=== PATIENT | male | born 1945 | race Caucasian/White ===

== ENCOUNTER 2017-03-10 15:41 | Inpatient (IN) | payer MEDICARE, BC ==
[~2017-03-10] VITALS: Ht 177.8 cm; Wt 75.5 kg
[2017-03-10] VITALS (8 sets, daily range): BP systolic 103–127; BP diastolic 60–74; PULSE 62–76; RESP 17–20; TEMP 96.6–97.4; O2SAT 95–100
[~2017-03-10 15:41] MED LIST: ZOCO40TA PO
--- NOTE | 2017-03-10 16:28 | RADRPT ---
EXAM DATE/TIME: 03/10/2017 16:17 [facility] COMPARISON: No previous studies available for comparison. INDICATIONS : Syncopal episode. MEDICAL HISTORY : None. SURGICAL HISTORY : Appendectomy. ENCOUNTER: Initial ACUITY: 1 day PAIN SCORE: 0/10 LOCATION: Bilateral chest FINDINGS: The lungs are hypoaerated but otherwise clear without evidence of acute air space disease or signific ant congestion. Large calcified nodes are identified in the left side of the mediastinum and left hilum. Heart is mildly enlarged. CONCLUSION: No evidence of acute cardio pulmonary process. Calcified mediastinal and left hilar lymph nodes. Mild cardiomegaly. Mushtaq Millan MD on March 10, 2017 at 16:24 Board Certified Radiologist. This report was verified electronically.
[2017-03-10 16:46] LABS: AUTOMATED NEUTROPHIL # 4.3 TH/MM3 (1.8-7.7); BASOPHIL % 0.7 % (0.0-2.0); EOSINOPHIL # 0.1 TH/MM3 (0-0.4); EOSINOPHIL % 1.1 % (0.0-4.0); HEMATOCRIT 34.3 % (39.0-51.0); HEMO FLAGS DIFF FINAL; LYMPH % 19.7 % (9.0-44.0); LYMPHOCYTE # 1.2 TH/MM3 (1.0-4.8); MEAN CELL VOLUME 94.9 FL (80.0-100.0); MEAN CORPUSCULAR HEMOGLOBIN 30.9 PG (27.0-34.0); MEAN CORPUSCULAR HGB CONC 32.5 % (32.0-36.0); MONO % 6.2 % (0.0-8.0); NEUT % 72.3 % (16.0-70.0); PLATELET COUNT 306 TH/MM3 (150-450); RED BLOOD COUNT 3.62 MIL/MM3 (4.50-5.90); RED CELL DISTRIBUTION WIDTH 13.5 % (11.6-17.2)
--- NOTE | 2017-03-10 16:48 | RADRPT ---
EXAM DATE/TIME: 03/10/2017 16:35 [facility] COMPARISON: No previous studies available for comparison. INDICATIONS : Evaluate for altered mental states. RADIATION DOSE: 56.35 CTDIvol (mGy) MEDICAL HISTORY : Cardiovascular disease. Hypercholesterolemia. SURGICAL HISTORY : None. ENCOUNTER: Initial ACUITY: 1 day PAIN SCALE: 3/10 LOCATION: Bilateral cranial TECHNIQUE: Multiple contiguous axial images were obtained of the head. Using automated exposure control and adj ustment of the mA and/or kV according to patient size, radiation dose was kept as low as reasonably a chievable to obtain optimal diagnostic quality images. FINDINGS: CEREBRUM: Moderate diffuse cerebral atrophy. The ventricles are normal for degree of atrophy. No evidence of m idline shift, mass lesion, hemorrhage or acute infarction. No extra-axial fluid collections are seen . POSTERIOR FOSSA: The cerebellum and brainstem are intact. The 4th ventricle is midline. The cerebellopontine angle i s unremarkable. EXTRACRANIAL: The visualized portion of the orbits is intact. SKULL: The calvaria is intact. No evidence of skull fracture. CONCLUSION: 1. Senescent changes. 2. No acute intracranial abnormality. Chay Tobias MD on March 10, 2017 at 16:43 Board Certified Radiologist. This report was verified electronically.
[2017-03-10 17:07] LABS: APTT (PATIENT) 20.7 SEC (24.3-30.1); INTERNATIONAL NORMALIZED RATIO 0.9 RATIO; PROTHROMBIN TIME - PATIENT 10.2 SEC (9.8-11.6)
[2017-03-10 17:26] LABS: ALKALINE PHOSPHATASE 63 U/L (45-117); ALT (GPT) 26 U/L (12-78); CREATINE KINASE 128 U/L (39-308); TOTAL BILIRUBIN ADULT 0.9 MG/DL (0.2-1.0)
[2017-03-10 17:35] LABS: ANION GAP 9 MEQ/L (5-15); AST (GOT) 31 U/L (15-37); BICARBONATE 25.9 MEQ/L (21.0-32.0); BLOOD UREA NITROGEN 25 MG/DL (7-18); CHLORIDE 106 MEQ/L (98-107); GLOMERULAR FILTRATION RATE 62 ML/MIN (>89); MAGNESIUM 2.2 MG/DL (1.5-2.5); SODIUM (NA) 141 MEQ/L (136-145)
[2017-03-10 17:38] LABS: CKMB 1.3 NG/ML (0.5-3.6)
--- NOTE | 2017-03-10 18:02 | PD ---
HPI Chief Complaint: Syncope/Near-Syncope Time Seen by Provider: 17:53 Travel History International Travel<30 days: No Contact w/Intl Traveler<30days: No Traveled to known affect area: No History of Present Illness HPI 71 yo male here for evaluation of syncope. Came by ambulance for evaluation of this. Patient had a syncopal episode with a restaurant. Apparently per bystanders and ambulance report patient complained that he was feeling dizzy when he stood up and he sat down again and she started to pass out. Patient threw up once. Patient had another episode well the ambulance was present. Patient has limited history secondary to dementia. Initially most of the history was obtained from ambulance as well as nurse report and some from the patient. At the time of my evaluation patient only complained of some lightheadedness. Daughter came later who is the power of disability attorney for the patient and tells us that patient has a complicated history. Apparently about a week ago patient had a significant GI bleed that resolved on its own but still present. Patient was admitted to a different hospital for this. Patient also has a history of severe coronary artery disease with stents placed as well as an abnormal aorta and a brain aneurysm complicating his medical care. Per daughter apparently patient had a stent that was hard to place and at this time they think the patient might need to go to bypass if he continues to have cardiac issues. Patient's employee relations representative is Dr. Dennis. Patient denies any chest pain. No other symptoms. PFSH Past Medical History Hx Anticoagulant Therapy: Yes (XARELTO) Cancer: No Cardiovascular Problems: Yes (SENT X1 ) Diabetes: No Endocrine: No Genitourinary: No Hepatitis: No Hiatal Hernia: No Immune Disorder: No Medical other: Yes (high cholesterol) Musculoskeletal: No Neurologic: No Psychiatric: No Reproductive: No Respiratory: No Thyroid Disease: No Past Surgical History Abdominal Surgery: Yes (appendectomy) Appendectomy: Yes Cardiac Surgery: No Ear Surgery: No Endocrine Surgery: No Eye Surgery: No Genitourinary Surgery: No Gynecologic Surgery: No Oral Surgery: No Thoracic Surgery: No Other Surgery: Yes Social History Alcohol Use: Yes (OCC) Tobacco Use: No Substance Use: No Allergies-Medications (Allergen,Severity, Reaction): Coded Allergies: No Known Allergies (Unverified , 03/10/17) Reported Meds & Prescriptions Reported Meds & Active Scripts Active Review of Systems Except as stated in HPI: all other systems reviewed are Neg Physical Exam Narrative GENERAL: SKIN: Warm and dry. HEAD: Atraumatic. Normocephalic. EYES: Pupils equal and round 4 mm reactive to light and accommodation. No scleral icterus. No injection or drainage. ENT: No nasal bleeding or discharge. Mucous membranes pink and moist. Tongue is midline. No uvula deviation. NECK: Trachea midline. No JVD. CARDIOVASCULAR: Regular rate and rhythm. No murmurs, S3, S4. RESPIRATORY: No accessory muscle use. Clear to auscultation. Breath sounds equal bilaterally. GASTROINTESTINAL: Abdomen soft, non-tender, nondistended. Hepatic and splenic margins not palpable. Rectal exam done and show no bertrand blood but Hemoccult was found to be positive. Done with male nurse present. MUSCULOSKELETAL: Extremities without clubbing, cyanosis, or edema. No obvious deformities. Full range of motion of the upper and lower extremities bilaterally. 2+ pulses bilaterally. NEUROLOGICAL: Awake and alert. No obvious cranial nerve deficits. Motor grossly within normal limits. Five out of 5 muscle strength in the arms and legs. Normal speech. PSYCHIATRIC: Appropriate mood and affect; insight and judgment normal. Data Data Last Documented VS Vital Signs Date Time Temp Pulse Resp B/P Pulse Ox O2 Delivery O2 Flow Rate FiO2 03/10/17 16:13 98 Room Air 03/10/17 15:53 97.4 65 17 107/64 Orders Electrocardiogram (03/10/17 16:05) Complete Blood Count With Diff (03/10/17 16:05) Comprehensive Metabolic Panel (03/10/17 16:05) Ckmb (Isoenzyme) Profile (03/10/17 16:05) Troponin I (03/10/17 16:05) Prothrombin Time / Inr (Pt) (03/10/17 16:05) Act Partial Throm Time (Ptt) (03/10/17 16:05) Urinalysis - C+S If Indicated (03/10/17 16:05) Magnesium (Mg) (03/10/17 16:05) Thyroid Stimulating Hormone (03/10/17 16:05) Chest, Single Ap (03/10/17 16:05) Ct Brain W/O Iv Contrast(Rout) (03/10/17 16:05) Iv Access Insert/Monitor (03/10/17 16:05) Ecg Monitoring (03/10/17 16:05) Oximetry (03/10/17 16:05) Orthostatic Vital Signs (03/10/17 16:05) Drug Screen, Random Urine (03/10/17 16:05) Alcohol (Ethanol) (03/10/17 16:05) CKMB (03/10/17 16:15) CKMB% (03/10/17 16:15) Labs Laboratory Tests Test 03/10/17 16:15 White Blood Count 6.0 TH/MM3 Red Blood Count 3.62 MIL/MM3 Hemoglobin 11.2 GM/DL Hematocrit 34.3 % Mean Corpuscular Volume 94.9 FL Mean Corpuscular Hemoglobin 30.9 PG Mean Corpuscular Hemoglobin 32.5 % Concent Red Cell Distribution Width 13.5 % Platelet Count 306 TH/MM3 Mean Platelet Volume 8.5 FL Neutrophils (%) (Auto) 72.3 % Lymphocytes (%) (Auto) 19.7 % Monocytes (%) (Auto) 6.2 % Eosinophils (%) (Auto) 1.1 % Basophils (%) (Auto) 0.7 % Neutrophils # (Auto) 4.3 TH/MM3 Lymphocytes # (Auto) 1.2 TH/MM3 Monocytes # (Auto) 0.4 TH/MM3 Eosinophils # (Auto) 0.1 TH/MM3 Basophils # (Auto) 0.0 TH/MM3 CBC Comment DIFF FINAL Differential Comment Prothrombin Time 10.2 SEC Prothromb Time International 0.9 RATIO Ratio Activated Partial 20.7 SEC Thromboplast Time Sodium Level 141 MEQ/L Potassium Level 4.0 MEQ/L Chloride Level 106 MEQ/L Carbon Dioxide Level 25.9 MEQ/L Anion Gap 9 MEQ/L Blood Urea Nitrogen 25 MG/DL Creatinine 1.16 MG/DL Estimat Glomerular Filtration 62 ML/MIN Rate Random Glucose 85 MG/DL Calcium Level 8.9 MG/DL Magnesium Level 2.2 MG/DL Total Bilirubin 0.9 MG/DL Aspartate Amino Transf 31 U/L (AST/SGOT) Alanine Aminotransferase 26 U/L (ALT/SGPT) Alkaline Phosphatase 63 U/L Total Creatine Kinase 128 U/L Creatine Kinase MB 1.3 NG/ML Troponin I 0.08 NG/ML Total Protein 6.6 GM/DL Albumin 3.6 GM/DL Thyroid Stimulating Hormone 11.300 uIU/ML 3rd Gen Ethyl Alcohol Level LESS THAN 3 MG/DL MDM Medical Decision Making Medical Screen Exam Complete: Yes Emergency Medical Condition: Yes Medical Record Reviewed: Yes Interpretation(s) CBC & BMP Diagram 03/10/17 16:15 LFTS WNL Troponin of 0.08 CKMB WNL EKG shows sinus rhythm with no sign of acute ischemia or arrhythmia read by me and attending. Last Impressions Head CT 03/10/17 1605 Signed Impressions: Service Date/Time: Friday, March 10, 2017 16:35 - CONCLUSION: 1. Senescent changes. 2. No acute intracranial abnormality. Chay Tobias MD Chest X-Ray 03/10/17 1605 Signed Impressions: Service Date/Time: Friday, March 10, 2017 16:17 - CONCLUSION: No evidence of acute cardio pulmonary process. Calcified mediastinal and left hilar lymph nodes. Mild cardiomegaly. Mushtaq Millan MD Differential Diagnosis Syncope versus chest pain versus ACS versus electrolyte abnormality versus tach hypotension versus GI bleed versus shock versus CVA Narrative Course 71-year-old male that presents to the ED for evaluation of syncope. Patient was properly examined and was found to have signs and symptoms consistent with syncope. Unclear etiology. History initially was limited but after family came over were able to get a better picture of the patient. Unfortunately he does have a complicated history. Hemoccult was done by me and was positive. Patient has no complaints but per daughter patient when he had the heart issue he did not complain of any chest pain and he still had positive troponins. I got called by Dr. Dennis who wanted to be made aware of the patient as is his patient and will like to be consulted on the patient during admission. Case was discussed with Dr. Renée SONG who agrees to admission for the patient for syncope, GI bleed and elevated troponin. He was made aware of Dr. Dennis wanting to be consulted as well as of all findings. My attending Dr. Martinez and myself went to the room and evaluated the patient and spoke with the family about admission and findings and they agree with plan. Procedures EKG Prior to Arrival: Yes HemaPrompt Point of Care Internal Pos. & Neg. Controls: Passed Fecal Specimen Occult Blood: Positive Diagnosis Primary Impression: Syncope Qualified Code: R55 - Syncope, unspecified syncope type Additional Impressions: Elevated troponin GI bleed Qualified Code: K92.2 - Gastrointestinal hemorrhage, unspecified gastrointestinal hemorrhage type Admitting Information Admitting Physician Requests: Admit Rahul Gillespie Mar 10, 2017 18:02
[2017-03-10] MEDS ORDERED: MEMA21CA PO (18:57)
[2017-03-10] MEDS ORDERED: LIPI80TA PO (18:57)
[2017-03-10] MEDS ORDERED: OMEP10CA PO (18:57)
[2017-03-10] MEDS ORDERED: LEVO75TA3 PO (18:57)
[2017-03-10 18:59] LABS: BLOOD, URINE NEG (NEG); GLUCOSE,URINE NEG (NEG); KETONE, URINE NEG (NEG); MUCUS URINE FEW /lpf (OCC); NITRITE,URINE NEG (NEG); PH, URINE 5.5 (5.0-8.5); URINE COLOR YELLOW (YELLW/STRAW)
[2017-03-10 19:02] LABS: COMMENT (UR) CULT NOT INDICATED; CULTURE IF INDICATED CULT NOT INDICATED
[2017-03-10 19:08] LABS: AMPHETAMINE, URINE NEG (NEG); BARBITURATES, URINE NEG (NEG); COCAINE, URINE NEG (NEG)
[2017-03-10] MEDS ORDERED: SODIUM CHLORIDE 0.9% FLUSH 10 ML FLUSH IV FLUSH PRN (20:45)
[2017-03-10] MEDS ORDERED: NALOXONE HCL 0.4 MG/ML AMP IV PRN (20:45)
[2017-03-10] MEDS: PANTOPRAZOLE SODIUM 40 MG VIAL IV PUSH SCH (21:35)
[2017-03-10] MEDS: SODIUM CHLORIDE 0.9% FLUSH 10 ML FLUSH IV FLUSH SCH (21:36)
[2017-03-10 23:55] LABS: HEMATOCRIT 33.2 % (39.0-51.0); REVIEW FLAG FINAL
--- NOTE | 2017-03-10 23:57 | HHI.HP ---
HPI Service [facility] Primary Care Physician Stephen Ricks, DO Admission Diagnosis acute syncope, positive troponin, GI bleed Diagnoses: (1) Syncope (2) Elevated troponin Chief Complaint: "I felt funny and passed out" Travel History International Travel<30 Days: No Contact w/Intl Traveler <30 Da: No Traveled to Known Affected Are: No History of Present Illness Written by Bella Allen, acting as scribe for Dr. Espinal on 03/10/17 at 23:57. The patient states that he was having lunch and sat down to eat. He then felt "really funny" with dizziness and inability to focus with some mild confusion and passed out. He turned toward his side on a picnic table and fell on the ground - denies hitting head. He denies any associated blurred vision, tinnitus , cp, sob, or unilateral weakness. He has never had any similar episodes before. Denies prior history of palpitations. Denies recent diarrhea, hematuria. Reports blood in stool a couple of weeks ago - no cp, sob, fever, or cough - was supposed to follow up with jig and fixture repairer as an outpatient and hasn't yet. Takes baby aspirin and Xarelto. Has had normal colonoscopy in the past Denies diabetes, hypertension, , CHF, liver/kidney problems, DVT, PE, CVA, seizures, or cancer Review of Systems Except as stated in HPI: all other systems reviewed are Neg Past Family Social History Past Medical History CAD with stent placement Hyperlipidemia Hypothyroidism . Past Surgical History Cardiac catheterization with stent placement Appendectomy Reported Medications Reported Meds & Active Scripts Active Reported Lipitor (Atorvastatin Calcium) 80 Mg Tab 80 Mg PO HS Namenda Xr (Memantine) 21 Mg Caper 21 Mg PO DAILY Levothyroxine (Levothyroxine Sodium) 75 Mcg Tab 75 Mcg PO DAILY Omeprazole 10 Mg Cap 0 PO DAILY Allergies: Coded Allergies: No Known Allergies (Unverified , 03/10/17) Active Ordered Medications Current Medications Sodium Chloride (NS Flush) 2 ml UNSCH PRN IV FLUSH FLUSH AFTER USING IV ACCESS ; Start 03/10/17 at 20:45 Sodium Chloride (NS Flush) 2 ml BID IV FLUSH Last administered on 03/10/17 21: 36; Start 03/10/17 at 21:00 Naloxone HCl (Narcan Inj) 0.4 mg UNSCH PRN IV SEE LABEL COMMENTS; Start at 20:45 Pantoprazole Sodium (Protonix Inj) 40 mg Q12HR IV PUSH Last administered on 21:35; Start 03/10/17 at 21:00 . Family History Denies any major medical history amongst his 7 siblings . Social History Tobacco - never Alcohol - occasional social beer Illicit drugs - never Physical Exam Vital Signs Vital Signs Date Time Temp Pulse Resp B/P Pulse Ox O2 Delivery O2 Flow Rate FiO2 03/10/17 23:10 96.6 76 20 127/60 98 03/10/17 21:40 67 03/10/17 21:25 96.9 68 20 120/74 100 03/10/17 21:00 74 18 106/72 97 Room Air 03/10/17 20:15 62 18 103/67 97 Room Air 03/10/17 18:57 76 18 104/64 95 Room Air 03/10/17 16:13 98 Room Air 03/10/17 15:53 97.4 65 17 107/64 97 Physical Exam GENERAL: This is a pleasant, well-nourished, well-developed older male patient, in no apparent distress. SKIN: No rashes, ecchymoses or lesions. Cool and dry. HEAD: Atraumatic. Normocephalic. EYES: No scleral icterus. No injection or drainage. ENT: Nose without bleeding, purulent drainage. NECK: Trachea midline. No JVD or lymphadenopathy. CARDIOVASCULAR: Regular rate and rhythm without murmurs, gallops, or rubs. RESPIRATORY: Clear to auscultation. Breath sounds equal bilaterally. No wheezes , rales, or rhonchi. GASTROINTESTINAL: Abdomen soft, non-tender, nondistended. No guarding. MUSCULOSKELETAL: Extremities without clubbing, cyanosis, or edema. No calf tenderness. NEUROLOGICAL: Awake and alert; mild short-term memory impairment. Motor and sensory grossly within normal limits. Normal speech. . Laboratory Laboratory Tests Test 03/10/17 03/10/17 03/10/17 16:15 18:35 23:30 White Blood Count 6.0 Red Blood Count 3.62 Hemoglobin 11.2 10.9 Hematocrit 34.3 33.2 Mean Corpuscular Volume 94.9 Mean Corpuscular Hemoglobin 30.9 Mean Corpuscular Hemoglobin 32.5 Concent Red Cell Distribution Width 13.5 Platelet Count 306 Mean Platelet Volume 8.5 Neutrophils (%) (Auto) 72.3 Lymphocytes (%) (Auto) 19.7 Monocytes (%) (Auto) 6.2 Eosinophils (%) (Auto) 1.1 Basophils (%) (Auto) 0.7 Neutrophils # (Auto) 4.3 Lymphocytes # (Auto) 1.2 Monocytes # (Auto) 0.4 Eosinophils # (Auto) 0.1 Basophils # (Auto) 0.0 CBC Comment DIFF FINAL Differential Comment Prothrombin Time 10.2 Prothromb Time International 0.9 Ratio Activated Partial 20.7 Thromboplast Time Sodium Level 141 Potassium Level 4.0 Chloride Level 106 Carbon Dioxide Level 25.9 Anion Gap 9 Blood Urea Nitrogen 25 Creatinine 1.16 Estimat Glomerular Filtration 62 Rate Random Glucose 85 Calcium Level 8.9 Magnesium Level 2.2 Total Bilirubin 0.9 Aspartate Amino Transf 31 (AST/SGOT) Alanine Aminotransferase 26 (ALT/SGPT) Alkaline Phosphatase 63 Total Creatine Kinase 128 Creatine Kinase MB 1.3 Troponin I 0.08 Total Protein 6.6 Albumin 3.6 Thyroid Stimulating Hormone 11.300 3rd Gen Ethyl Alcohol Level LESS THAN 3 Urine Color YELLOW Urine Turbidity CLEAR Urine pH 5.5 Urine Specific [place] 1.024 Urine Protein TRACE Urine Glucose (UA) NEG Urine Ketones NEG Urine Occult Blood NEG Urine Nitrite NEG Urine Bilirubin NEG Urine Urobilinogen 2.0 Urine Leukocyte Esterase NEG Urine RBC 1 Urine WBC 1 Urine Amorphous Sediment RARE Urine Mucus FEW Microscopic Urinalysis Comment CULT NOT INDICATED Urine Opiates Screen NEG Urine Barbiturates Screen NEG Urine Amphetamines Screen NEG Urine Benzodiazepines Screen NEG Urine Cocaine Screen NEG Urine Cannabinoids Screen NEG Result Diagram: 03/10/17 2330 03/10/17 1615 Imaging Last Impressions Head CT 03/10/17 1605 Signed Impressions: Service Date/Time: Friday, March 10, 2017 16:35 - CONCLUSION: 1. Senescent changes. 2. No acute intracranial abnormality. Chay Tobias MD Chest X-Ray 03/10/17 1605 Signed Impressions: Service Date/Time: Friday, March 10, 2017 16:17 - CONCLUSION: No evidence of acute cardio pulmonary process. Calcified mediastinal and left hilar lymph nodes. Mild cardiomegaly. Mushtaq Millan MD . Assessment and Plan Problem List: (1) Syncope ICD Code: R55 Status: Acute (2) Elevated troponin ICD Code: R74.8 Status: Acute Assessment and Plan Syncope - ACS vs GI bleed - patient of Dr. Dennis's - Consult cardiology - Dr. Dennis's assistance is appreciated - check serial H&H - Monitor VS q4h - Continuous cardiac telemetry to monitor for arrhythmia. Elevated troponin I - initial troponin I 0.08 - monitor trends in serial EKGs and cardiac enzymes - will do lovenox therapeutic dose if enzymes continue to trend up Questionable hx of GI bleed a few weeks ago - Protonix 40 mg IV q12h - Consult gastroenterology - patient trying to remember which GI group he was referred to - reports has had prior colonoscopies that were normal - watch for bleeding closely DVT prophylaxis- SCD vs lovenox GI prophylaxis on protonix This note was transcribed by shineibdamien [Bella Allen]. I, Dr. Kary Espinal personally performed the history, physical exam, and medical decision making; and confirmed the accuracy of the information in the transcribed note. Authenticated by Dr. Kary Espinal on 03/10/17 at 23:57. Discussed Condition With ER physician and patient Problem Qualifiers (1) Syncope: Qualified Code: R55 - Syncope, unspecified syncope type Bella Allen Mar 10, 2017 23:57 Kary Espinal MD Mar 11, 2017 01:50 Qualified Code: R55 - Syncope, unspecified syncope type (2) GI bleed: Qualified Code: K92.2 - Gastrointestinal hemorrhage, unspecified gastrointestinal hemorrhage type Bella Allen Mar 10, 2017 23:57 Kary Espinal MD Mar 11, 2017 01:50
[2017-03-11] VITALS (12 sets, daily range): BP systolic 101–129; BP diastolic 65–85; PULSE 56–73; RESP 18–21; TEMP 97.3–99.1; O2SAT 96–100
[2017-03-11] MEDS ORDERED: ENOXAPARIN SODIUM 80 MG/0.8 ML SYRINGE SQ SCH (02:00)
--- NOTE | 2017-03-11 07:18 | EKG ---
Date Performed: 03/10/2017 Time Performed: 15:47:02 PTAGE: 71 years EKG: Sinus rhythm WITH MARKED SINUS ARRHYTHMIA POSSIBLE ANTERIOR MYOCARDIAL INFARCTION BORDERLINE ECG INTERPRETATION B ASED ON A DEFAULT AGE OF 40 YEARS COMPARED TO PRIOR ELECTROCARDIOGRAM, Inferior infarct pattern is no longer present. PREVIOUS TRACING : 03/29/2015 16.26 DOCTOR: Sudheer Aparicio Interpretating Date/Time 03/11/2017 07:17:12
--- NOTE | 2017-03-11 07:55 | EKG ---
Date Performed: 03/11/2017 Time Performed: 04:15:08 PTAGE: 71 years EKG: BASELINE ARTIFACT PRESENT. Sinus rhythm WITH OCCASIONAL SUPRAVENTRICULAR PREMATURE COMPLEXES BORDERLINE ECG Premature atrial contractions ar e now present. PREVIOUS TRACING : 03/10/2017 23.05 DOCTOR: Sudheer Aparicio Interpretating Date/Time 03/11/2017 07:53:39
--- NOTE | 2017-03-11 07:59 | EKG ---
Date Performed: 03/10/2017 Time Performed: 23:05:52 PTAGE: 71 years EKG: BASELINE ARTIFACT PRESENT. Sinus rhythm INFERIOR MYOCARDIAL INFARCTION ABNORMAL ECG COMPARED TO PRIOR ELECTROCARDIOGRAM, inferior infarct p attern is present. PREVIOUS TRACING : 03/10/2017 15.47 DOCTOR: Sudheer Aparicio Interpretating Date/Time 03/11/2017 07:58:39
[2017-03-11 08:55] LABS: BASOPHIL % 0.4 % (0.0-2.0); EOSINOPHIL # 0.1 TH/MM3 (0-0.4); EOSINOPHIL % 1.2 % (0.0-4.0); HEMATOCRIT 31.9 % (39.0-51.0); HEMO FLAGS DIFF FINAL; LYMPH % 16.9 % (9.0-44.0); LYMPHOCYTE # 1.1 TH/MM3 (1.0-4.8); MEAN CELL VOLUME 94.2 FL (80.0-100.0); MEAN CORPUSCULAR HEMOGLOBIN 31.1 PG (27.0-34.0); MONO % 7.2 % (0.0-8.0); NEUT % 74.3 % (16.0-70.0); PLATELET COUNT 277 TH/MM3 (150-450); RED BLOOD COUNT 3.39 MIL/MM3 (4.50-5.90); RED CELL DISTRIBUTION WIDTH 13.5 % (11.6-17.2); WHITE BLOOD COUNT 6.8 TH/MM3 (4.0-11.0)
[2017-03-11 09:28] LABS: BICARBONATE 24.2 MEQ/L (21.0-32.0); POTASSIUM 3.7 MEQ/L (3.5-5.1)
[2017-03-11] MEDS: PANTOPRAZOLE SODIUM 40 MG VIAL IV PUSH SCH ×2 (10:17→21:36)
[2017-03-11] MEDS: SODIUM CHLORIDE 0.9% FLUSH 10 ML FLUSH IV FLUSH SCH ×2 (10:18→21:36)
--- NOTE | 2017-03-11 10:47 | HHI.PR ---
Subjective Remarks Follow-up for syncope and elevated troponin Patient denies any chest pain, palpitation, short spring, lightheadedness dizziness. She stated that he feels well today. Patient anxious to go home. He stated that time that he an episode of syncope he felt "weird." Where he couldn't move. He denies any focal neurological deficit or visual changes. He does stated that he felt dizziness and passed out. At the moment patient is back to his baseline. Dealt with patient's nurse and stated that troponins and elevated. Told patient 's nurse Jeannine to contact Dr. Dennis. Dr. Dennis automotive sales executive is aware that troponins are elevated. Objective Vitals Vital Signs Date Time Temp Pulse Resp B/P Pulse Ox O2 Delivery O2 Flow Rate FiO2 03/11/17 08:00 97.3 61 20 117/65 99 03/11/17 03:40 97.7 61 20 101/66 96 03/10/17 23:10 96.6 76 20 127/60 98 03/10/17 21:40 67 03/10/17 21:25 96.9 68 20 120/74 100 03/10/17 21:00 74 18 106/72 97 Room Air 03/10/17 20:15 62 18 103/67 97 Room Air 03/10/17 18:57 76 18 104/64 95 Room Air 03/10/17 16:13 98 Room Air 03/10/17 15:53 97.4 65 17 107/64 97 Result Diagram: 03/11/17 0810 03/11/17 0810 Objective Remarks GENERAL: in NAD SKIN: Warm and dry. HEAD: Normocephalic. EYES: No scleral icterus. No injection or drainage. NECK: Supple, trachea midline. No JVD or lymphadenopathy. CARDIOVASCULAR: Regular rate and rhythm without murmurs, gallops, or rubs. RESPIRATORY: Breath sounds equal bilaterally. No accessory muscle use. GASTROINTESTINAL: Abdomen soft, non-tender, nondistended. MUSCULOSKELETAL: No cyanosis, or edema. BACK: Nontender without obvious deformity. No CVA tenderness. NEURO: AAO X 3. CN 2-12 intact. Motor and sensation grossly intact. Medications and IVs Current Medications Sodium Chloride (NS Flush) 2 ml UNSCH PRN IV FLUSH FLUSH AFTER USING IV ACCESS ; Start 03/10/17 at 20:45 Sodium Chloride (NS Flush) 2 ml BID IV FLUSH Last administered on 03/11/17t 10: 18; Start 03/10/17 at 21:00 Naloxone HCl (Narcan Inj) 0.4 mg UNSCH PRN IV SEE LABEL COMMENTS; Start at 20:45 Pantoprazole Sodium (Protonix Inj) 40 mg Q12HR IV PUSH Last administered on 10:17; Start 03/10/17 at 21:00 Enoxaparin Sodium (Lovenox Inj) 70 mg Q12H SQ ; Start 03/11/17 at 02:00 A/P Problem List: (1) Syncope ICD Code: R55 Status: Acute (2) Elevated troponin ICD Code: R74.8 Status: Acute Assessment and Plan Syncope -Troponins are elevated. May be secondary to ACS but patient is asymptomatic. -Her automotive sales executive consulted. Dr. Dennis is aware of elevated troponins. - Patient is on Lovenox. We'll add aspirin and metoprolol. Nitroglycerin or morphine when necessary for chest pain. -Continue with cardiac telemetry. elevated troponin. - Most likely secondary to NSTEMI. -See treatment as above. Questionable hx of GI bleed a few weeks ago - No signs of GI bleed. Hemoglobin has been stable. 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 This can be follow-up as outpatient. DVT prophylaxis- SCD Discharge Planning Troponins continues to be elevated concerning for ACS. Pediatric Lpn consulted. Pending recommendations. Problem Qualifiers (1) Syncope: Qualified Code: R55 - Syncope, unspecified syncope type Trang Casanova MD Mar 11, 2017 10:47
[2017-03-11] MEDS ORDERED: PILL SPLITTER OTHER PRN (11:00)
[2017-03-11] MEDS: METOPROLOL TARTRATE 25 MG TAB PO SCH ×2 (12:17→21:37)
[2017-03-11] MEDS: ASPIRIN EC 81 MG TABEC PO SCH (12:17)
[2017-03-11] MEDS ORDERED: IOHEXOL 350 MG/ML 100 ML BTL (for Cath Lab) OTHER ONE (13:25)
--- NOTE | 2017-03-11 13:31 | MB ---
cc: BRENTON RICK M.D. DATE OF CONSULTATION: 03/11/2017 HISTORY OF PRESENT ILLNESS Julio is a very pleasant 71-year-old gentleman with a history of coronary disease. He had complex intervention in the proximal LAD in November involving jailing of a diagonal vessel, also had a very posteriorly rotated left main and it was difficult to cannulate the left main with the guide catheter. Nevertheless, he underwent this successfully. His chest pain was completely resolved. He is also on dual-antiplatelet therapy and Xarelto due to simultaneous atrial fibrillation and coronary disease status post PCI. About a week and a half ago the patient developed a GI bleed that was not hemodynamically significant or required blood transfusion; however, he was discontinued on his anticoagulation and dual-antiplatelet therapy. Plan was for him to follow-up with Dr. Snider for further evaluation and management from a GI standpoint as soon as possible; however, the patient as of the time of his admission history had not seen Dr. Snider. Yesterday the patient was having lunch with a friend, developed nausea and then had a syncopal event. Initial EKG showed some ST elevation in lead I and aVL but did not appear to be consistent with injury and morphology. Subsequent EKG showed complete resolution of this change. The patient is completely asymptomatic now. Denies chest pain, fever, chills, cough, GI or bleeding, PND, orthopnea, syncope or dizziness at this time. His troponins did elevate, however. PAST MEDICAL HISTORY 1. Per history of present illness. 2. Hyperlipidemia. 3. Appendectomy. SOCIAL HISTORY Drinks alcohol occasionally. ALLERGIES None. MEDICATIONS 1. Aspirin 81 mg a day. 2. Metoprolol 12.5 q.12h. 3. Lovenox 70 subcu q.12h. 4. Pantoprazole 40 IV q.12h. PHYSICAL EXAMINATION VITAL SIGNS: Blood pressure 127/76, pulse 61, temperature 98.2, respiratory rate 21. GENERAL: He is alert and oriented x3, in no acute distress. NECK: Supple. No JVD. No bruit. CARDIOVASCULAR: S1, S2. No murmurs or gallops. LUNGS: Clear to auscultation bilaterally. ABDOMEN: Soft, nontender, nondistended, with positive bowel sounds. EXTREMITIES: No lower extremity edema. LABORATORY White count 6.0, hemoglobin 11.2 yesterday, currently 10.5. Hematocrit 34.3 down to 31.9 today. Platelet count initially 306, now 277. Sodium 141, potassium 4.1, chloride 106, bicarb 25.9, BUN 25, creatinine 1.16. LFTs normal. Initial troponin 0.08, 0.32, 1.60. CK negative x3. TSH 11.300. INR is 0.9. Toxicology negative. IMAGING Head CT conclusion "senescent" changes, no acute intracranial abnormality. Chest x-ray with mild cardiomegaly. EKG EKG initially at 1605 on 03/10/2017: Normal sinus rhythm at 68 beats per minute. There may be 0.[address]-segment elevation in lead I and aVL, does not appear to be consistent with injury. There is asymmetric T-wave inversion in lead III and aVF, otherwise nonspecific ST-T wave changes, poor R-wave progression, intraventricular conduction delay. EKG done at 2215 on 03/10/2017: Normal sinus rhythm at 73 beats per minute, nonspecific ST-T wave changes. The third EKG has normal sinus rhythm, nonspecific ST-T wave changes. DIAGNOSIS 1. Non-ST elevation myocardial infarction. 2. Syncope. 3. Recent GI bleed. 4. Paroxysmal atrial fibrillation. 5. Abnormal EKG. DISCUSSION At this point in time it is indeterminate whether his troponin elevation is secondary to a possible hypotensive episode associated with the syncope and/or primary obstructive etiology leading to the syncope. Certainly the patient is high risk for an ischemic etiology given his recently placed stent which was a complicated procedure due to inability to cannulate the left main due to a very posteriorly rotated left main ostium and also a bifurcation lesion. The patient has also been off dual-antiplatelet therapy and anticoagulation due to recent GI bleeding. Therefore, I do think left heart catheterization is medically necessary. Further recommendations pending the details of his coronary anatomy. The patient does have baseline dementia and his daughter, Chery Blake, is his surrogate decision-maker and I discussed the possibility of repeat intervention versus considering bypass surgery should the patient have another complex lesion, particularly involving the LAD. Ms. Blake has indicated that she would prefer consideration for CABG at that point in time if that is the case. Otherwise agree with aspirin and Lovenox. Will also restart the patient's Lipitor at 80 mg h.s. MD BONNIE Todd/MOLLY /1:01 PM /1:17 PM
[2017-03-11] MEDS ORDERED: HEPARIN-NS/PF INJ 500 ML ONE (14:04)
[2017-03-11] MEDS ORDERED: HEPARIN SODIUM - IV 10,000 UNITS/10 ML VIAL ONE (14:47)
[2017-03-11] MEDS ORDERED: ADENOSINE STRESS TEST INJ 90 MG/30 ML VIAL ONE (14:51)
[2017-03-11] MEDS ORDERED: MISC INFORMATION XX ONE (15:30)
[2017-03-11] MEDS ORDERED: SODIUM CHLORIDE 0.9% FLUSH 10 ML FLUSH IV FLUSH PRN (15:30)
--- NOTE | 2017-03-11 15:41 | CATHPROC ---
[facility] HIS Report Study Information Study Number Admission Scheduled Start Study Start [id number] Mar 10 2017 6:20PM 03/11/2017 Mar 11 2017 1:56PM [address] Service Cardiac Catheterization Admit Source Facility Department Emergency department [facility] - [facility] Physician and Clinical Staff Initial Nader Dyer Verification Engineer Gloria Duffy,BSRN Verification Engineer Umu Blanton,RN Recorder Dixie Garza,PIERCING ARTIST TECH2 Scrub Kian Duffy,RT(R) TECH2 Procedures Performed Procedure Location (Site) Vessel Name Coronary Angiograms LCA Left Coronary Coronary Angiograms RCA Right Coronary LV Gram-hand inj. LV LV Ventricle Wire insertion Fem Art (right) Femoral Art Equipment Time Hooker Up Description Size Mfg Part Number Used/Scraped CATHETER, FR5 SWAN MOSES 14:15 UMANZOR BLANTON FR 5 [id number] *[id number] Used MONITOR TRANSDUCER, TRUWAVE [id number] 14:15 UMANZOR BLANTON * Used W/STOCKCOCK *[id number] WIRE, GUIDE AMPLATZ STIFF [id number] 15:01 COOK/PACER 3MMJ Used 180CM *[id number] 538-446 *[id number] [id number] *[id number] 538-420 *[id number] 670-010-00 *[id number] 538-424 *1829871 538-421 *[id number] 670-058-00 *[id number] 670-064-00 *[id number] 14:15 MEDLINE IND[employer] PACK, CCL CUSTOM * Used *[id number] 14:15 [employer] PACER PEN, SKIN DUAL W/ RULER * Used *[id number] 14:52 Protecode MEDICAL SHEATH, FR6.5 PRELUDE 11CM FR 6.5 038ACT Used *[id number] 14:15 Protecode MEDICAL WIRE, 3MMJ .035 180CM 180CM Used *[id number] 14:15 NAMIC MANIFOLD, 4 PORT * Used *[id number] 14:15 NYCOMED OMNIPAQUE, 350 MG, 150ML 150ML [id number] Used [id number] 14:15 JOHNSON MEDICAL BLANKET,WARM AIR CCL * Used *[id number] 14:15 TERUMO MEDICAL SHEATH, FR4 TERUMO (10CM) FR 4 [id number] Used 14:29 TERUMO MEDICAL SHEATH, FR6 TERUMO (10CM) FR 6 [id number] Used 14:52 VOLCANO PRIME WIRE, VERRATA 185CM 185CM 85880 *[id number] Used Equipment Model, Serial, Lot Number and Expiration Data Description Model Number Serial Number Lot Number Expiration Date PRIME WIRE, VERRATA 185CM [id number] 01-26-2020 WIRE, GUIDE AMPLATZ STIFF [id number] 08-09-2021 180CM History: Allergies Allergy Reaction NKDA History: Risk Factors Family History of Hypertension Dyslipidemia Previous OH Previous Heart Failure Premature CAD No Yes No Yes No Prior Valve Prior PCI Prior CABG Surgery No Yes No Cerebrovascular Peripheral Artery Chronic Lung On Dialysis Diabetes Disease Disease Disease No No No No No History: Symptoms/Diagnosis Selection Items Syncope History: CV Disease Selection Items Known CAD OH History: Stress Tests Stress or Imaging Studies Performed No History: Arrhythmias Selection Items Atrial fibrillation History: Other Current Smoker No Labs Hgb (g/dl) Hct (%) WBC (l/cumm) Platelets (thousands) 12.00-18.00 37.00-55.00 4.80-10.80 140.00-450.00 10.5 31.9 6.8 277 Glucose (mg/dl) BUN (mg/dl) Creatinine (mg/dl) BUN:Creatinine (1:x) 60.00-110.00 8.00-20.00 0.10-9.00 10.00-20.00 84 27 0.8 33.8 Na (meq/l) K (meq/l) 138.00-146.00 3.80-5.10 141 3.7 INR (PTT:PT) 0.50-2.00 0.9 Troponin I (ng/ml) CPK (u/l) CPK-MB (ng/ML) 0.40-2.30 37.00-289.00 0.00-7.00 1.6 128 1.3 Medication Medication Total Dose (Bolus/Oral) Medication Total Dosage/Unit 1% XYLOCAINE 20 mL HEPARIN 5200 units Medications (Bolus/Oral) Medication Time Given Dosage/Unit Administered By Reason 1% XYLOCAINE 03/11/2017 2:25:26 PM 20 mL Nader Dennis 20 mL 1% XYLOCAINE given in lab by Nader Dennis in Right Groin via Subcutaneous. HEPARIN 03/11/2017 2:51:53 PM 5200 units Gloria Duffy 5200 units HEPARIN given in lab by Gloria Duffy BSRN in Left Antecubital via Peripheral IV. Orde red by Nader Dennis. Medication (Drip) Medication Time Given Dosage/Unit Concentration/Unit Diluent (ml) Solution IV Bolus 03/11/2017 2:36:16 PM 250 mL (Bolus) 500 NaCl .9 250 mL (Bolus) IV Bolus given in lab by Gloria Duffy BSRN in Left Antecubital via Peripheral IV. Using NaCl .9. Ordered by Nader Dennis. IV Solutions 03/11/2017 1:58:02 PM 0 mL (IV) 500 NaCl .9 Patient arrived on IV Solutions given by Gloria Duffy BSRN in Left Antecubital via Peripheral IV . Pump/Drip Flow = 20 ml/hr using NaCl .9. IV Solutions 03/11/2017 3:22:30 PM 50 mL (IV) 1000 NaCl .9 IV Solutions given in lab by Gloria Duffy BSRN in Left Antecubital via Peripheral IV. Pump/Drip Flow using NaCl .9. Ordered by Nader Dennis. Reason: As per physicians verbal order. fuids opened wide for fluid bolus total of 2L Initial Case Assessment Cardiovascular HR Rhythm NIBP Chest Pain 63 sr 131/81 0 Circulatory - Right Pulses Posterior Tibial 2 Scale (0,1,2,3,4,d) Circulatory - Left Pulses Posterior Tibial 2 Scale (0,1,2,3,4,d) Neurological State Oriented to time-place- Alert Moves all extremities person Respiration - General Respiration Rate SpO2 (%) (B/min) 18 99 Final Case Assessment Cardiovascular HR Rhythm NIBP Chest Pain 76 sr 134/95 0 Circulatory - Right Pulses Posterior Tibial Femoral 2 1 Scale (0,1,2,3,4,d) Circulatory - Left Pulses Posterior Tibial Femoral 2 1 Scale (0,1,2,3,4,d) Neurological State Oriented to time-place- Alert Moves all extremities person Respiration - General Respiration Rate SpO2 (%) (B/min) 20 92 Chronological Log Time Study Chronological Log 13:57:48 Patient arrived via Bed. 13:57:49 Patient Name, D.O.B, / Armband Verified By R.N. 13:57:51 Consent signed by the physician and the patient and verified by the [facility] staff. 13:57:52 Pre-op and post- op instructions given; patient acknowledges understanding of instructions. 13:57:52 Verbal Stimulation=2 Physical Stimulation=2 Airway=2 Respiration=2 TOTAL=8. (0=absent, 1=li mited, 2=present) 13:57:54 Presedation assessment performed by [facility] RN. 13:57:55 Patient has been NPO for More than 6Hrs. 13:57:58 Pratik Prominences Protected 13:58:01 A # 22 IV was noted in the Antecubital (left). Grade = patent Patient arrived on IV Solutions given by Gloria Duffy BSRN in Left Antecubital via Periphe ral IV. Pump/Drip Flow = 13:58:02 20 ml/hr using NaCl .9. 13:58:03 History and physical on the chart or being dictated. 14:04:28 Reference ECG taken Vitals capture started with the following parameters, Patient=Adult, Interval=5 min, Initial Pr xvupbf=505 mmHg, 14:04:30 Deflation Rate=5 mmHg 14:05:10 HR=68 bpm, XYZO=628/81 mmhg, QdF3=864.0 %, Resp=10 B/min, Pain=0, Pham=2 Assessment: Initial Case, HR=63 BPM, Rhythm=sr, EHWY=815/81 mmhg, Chest Pain=0 Right Pulses: Post Tib=2 14:06:03 Left Pulses: Noel Ped=1, Post Tib=2 Neurological: State=Alert, Ox3, AGUSTIN Respiration: Resp=18 B/min, SpO2=99 % 14:10:05 HR=83 bpm, ZSEA=052/74 mmhg, SpO2=99.0 %, Resp=16 B/min 14:15:02 Bilateral groins prepped with 2% chlorhexidine, and draped after a 3 min. waiting time. 14:15:04 HR=60 bpm, WIHD=177/95 mmhg, LqK5=209.0 %, Resp=20 B/min 14:17:54 Pressure channel 1 zeroed. 14:18:54 paged 14:20:07 HR=63 bpm, DMPQ=846/83 mmhg, SpO2=99.0 %, Resp=13 B/min 14:22:32 MD arrived. Time Out. Correct patient, correct procedure,correct physician, power injector not loaded with contrast with surgical 14:24:53 team present. Time Out Concurred by MD and individual staff in procedure 14:24:59 Case Start 14:25:08 HR=61 bpm, IEUA=102/78 mmhg, SpO2=99.0 %, Resp=19 B/min 14:25:26 20 mL 1% XYLOCAINE given in lab by Nader Dennis in Right Groin via Subcutaneous. 14:26:17 Access site was Right Femoral Artery. 14:27:09 A SHEATH, FR4 TERUMO (10CM) FR 4 was advanced into the Fem Art (right) using the Percutaneo us technique. 14:27:23 Saturation: Site=Ao (Aorta) , O2=97.7 %, Hgb=10.5 gm/dl, Condition=Condition 1. Used in nguyễn culation. 14:27:42 Access site was Right Femoral Vein. 14:27:51 A SHEATH, FR6 TERUMO (10CM) FR 6 was advanced into the Fem Vein (right) using the Percutane ous technique. 14:28:46 A CATHETER, FR5 SWAN MOSES MONITOR FR 5 was inserted via Fem Vein (right) Recorded Pressure: PCW, HR=58, Condition=Condition 1 14:29:47 (Pulmonary Capillary Wedge) PCW 14:30:09 HR=65 bpm, TYQM=862/82 mmhg, DlM6=094.0 %, Resp=22 B/min 14::32 Pressure channel 1 zeroed. Recorded Pressure: MPA, HR=60, Condition=Condition 1 14:30:45 (Main Pulmonary Artery) MPA 17/04/13 Recorded Pressure: RV, HR=59, Condition=Condition 1 14:31:37 (Right Ventricle) RV 230/4 Recorded Pressure: RA, HR=59, Condition=Condition 1 14:31:53 (Right Atrium) RA 14:32:05 Saturation: Site=PA (Pulmonary Artery) , O2=77.6 %, Hgb=10.5 gm/dl, Condition=Condition 1. Used in calculation. 14::42 Saturation: Site=RA (Right Atrium) , O2=77.3 %, Hgb=10.5 gm/dl, Condition=Condition 1. Used in calculation. 14:33:09 [place] Catheter Removed A JR 4.0 INFINITI CATHETER FR 4 was advanced over a wire. OMNIPAQUE, 350 MG, 150ML 150ML was us ed for 14:33:17 injections. Recorded Pressure: LV, HR=62, Condition=Condition 1 14:34:20 (Left Ventricle) LV 127/1/15 14:34:32 The LV was manually injected with 10 cc's and visualized. OMNIPAQUE, 350 MG, 150ML 150ML us ed. Recorded Pressure: LV, Ao, HR=54, Condition=Condition 1 14:34:39 (Left Ventricle) LV 110/-17/10, (Aorta) Ao 128/69/92 Recorded Pressure: Ao, HR=65, Condition=Condition 1 14:35:01 (Aorta) Ao 129/70/99 14:35:04 HR=69 bpm, HPLE=553/92 mmhg, SpO2=95.0 %, Resp=14 B/min 250 mL (Bolus) IV Bolus given in lab by Gloria Duffy BSRN in Left Antecubital via Peripher al IV. Using NaCl .9. 14:36:16 Ordered by Nader Dennis. 14:37:03 The RCA was injected and visualized at various angles. OMNIPAQUE, 350 MG, 150ML 150ML used . 14:37:44 Catheter was removed A AL 2 INFINITI CATHETER FR 4 was advanced over a wire. OMNIPAQUE, 350 MG, 150ML 150ML was used for 14:37:44 injections. 14:40:46 HR=67 bpm, VSYC=308/84 mmhg, SpO2=99.0 %, Resp=16 B/min 14:43:55 Unable to cannulate, Catheter was removed A JL 6.0 INFINITI CATHETER FR 4 was advanced over a wire. OMNIPAQUE, 350 MG, 150ML 150ML was us ed for 14:44:12 injections. 14:45:45 HR=73 bpm, JOKZ=211/89 mmhg, SpO2=97.0 %, Resp=19 B/min 14:46:09 The LCA was injected and visualized at various angles. OMNIPAQUE, 350 MG, 150ML 150ML used . 14:50:11 HR=71 bpm, GLSI=738/84 mmhg, UoJ0=773.0 %, Resp=18 B/min 14:51:03 Catheter was removed A SHEATH, FR6.5 PRELUDE 11CM FR 6.5 was exchanged in the Fem Art (right). This was necessary in order to 14:51:11 accomodate a larger catheter. 5200 units HEPARIN given in lab by Gloria Duffy BSRN in Left Antecubital via Peripheral IV . Ordered by Sonny, 14:51:53 Nader. A JL 6.0 GUIDE CATHETER FR 6 was advanced over a wire. OMNIPAQUE, 350 MG, 150ML 150ML was used for 14:54:44 injections. 14:55:37 HR=70 bpm, XBJH=058/82 mmhg, SpO2=98.0 %, Resp=15 B/min 14:58:20 Unable to cannulate, Catheter was removed A XB 4.5 GUIDE CATHETER FR 6 was advanced over a wire. OMNIPAQUE, 350 MG, 150ML 150ML was used for 14:58:34 injections. 15:00:07 HR=69 bpm, ZRCM=773/95 mmhg, SpO2=90 %, Resp=16 B/min 15:01:55 A WIRE, GUIDE AMPLATZ STIFF 180CM 3MMJ was inserted via Fem Art (right). 15:02:56 Unable to cannulate LCA, Catheter was removed 15:03:46 A AL 3 GUIDE CATHETER FR 6 was advanced over a wire. OMNIPAQUE, 350 MG, 150ML 150ML was use d for injections. 15:05:35 HR=77 bpm, QJVP=911/96 mmhg, SpO2=90 %, Resp=16 B/min 15:06:52 Unable to cannulate LCA, Catheter was removed A XBLAD 4.5 GUIDE CATHETER FR 6 was advanced over a wire. OMNIPAQUE, 350 MG, 150ML 150ML was u sed for 15:07:15 injections. 15:10:10 Unable to cannulate, Catheter was removed 15:10:11 HR=74 bpm, XKSG=403/80 mmhg, SpO2=92 %, Resp=15 B/min 15:10:51 Activated Clotting Time Drawn 15:15:31 HR=82 bpm, CVYJ=102/96 mmhg, SpO2=60.0 %, Resp=16 B/min 15:16:06 Case End 15:17:55 ACT (Normal Range 90-180) = 200 In the Fem Art (right) the SHEATH, FR6.5 PRELUDE 11CM FR 6.[address] by Kian Duffy, RT(R) 15:18:26 TECH2. 15:18:37 In the Fem Vein (right) the SHEATH, FR6 TERUMO (10CM) FR [address] by Kian Ozuna, RT(R) TECH2. 15:18:49 Sterile dressing applied to site 15:18:50 No case complications noted. 15:18:52 Cine recording checked. 15:18:53 Bedside Report will be given. 15:20:10 HR=76 bpm, DNAT=663/95 mmhg, SpO2=61.0 %, Resp=20 B/min Assessment: Final Case, HR=76 BPM, Rhythm=sr, REMM=397/95 mmhg, Chest Pain=0 Right Pulses: Post Tib=2, Femoral=1 15:20:25 Left Pulses: Noel Ped=1, Post Tib=2, Femoral=1 Neurological: State=Alert, Ox3, AGUSTIN Respiration: Resp=20 B/min, SpO2=92 % IV Solutions given in lab by Gloria Duffy BSRN in Left Antecubital via Peripheral IV. Pum p/Drip Flow using NaCl .9. 15:22:30 Ordered by Nader Dennis. Reason: As per physicians verbal order. fuids opened wide for flu id bolus total of 2L 15:24:12 Patient moved to bed 15:24:32 Dr Gutierrez consulted. 15:26:15 Patient transported to DOCU. End Study - Maximum Contrast Load Max Contrast Load (mL) 468.8 End Study - Radiation Exposure Fluoro Time (minutes) 15.6 End Study - Patient Disposition Complications Transferred To No Telemetry Bed
[2017-03-11] MEDS: ATORVASTATIN 80 MG TAB PO SCH (21:37)
[2017-03-12] VITALS (25 sets, daily range): BP systolic 110–128; BP diastolic 54–90; PULSE 55–87; RESP 18; TEMP 97–98.7; O2SAT 96–97
[2017-03-12 06:52] LABS: AUTOMATED NEUTROPHIL # 5.7 TH/MM3 (1.8-7.7); BASOPHIL % 0.3 % (0.0-2.0); EOSINOPHIL # 0.1 TH/MM3 (0-0.4); EOSINOPHIL % 0.8 % (0.0-4.0); HEMATOCRIT 30.6 % (39.0-51.0); HEMO FLAGS DIFF FINAL; MEAN CELL VOLUME 93.6 FL (80.0-100.0); MEAN CORPUSCULAR HEMOGLOBIN 32.2 PG (27.0-34.0); MEAN CORPUSCULAR HGB CONC 34.4 % (32.0-36.0); NEUT % 77.9 % (16.0-70.0); PLATELET COUNT 275 TH/MM3 (150-450); RED BLOOD COUNT 3.27 MIL/MM3 (4.50-5.90); RED CELL DISTRIBUTION WIDTH 13.7 % (11.6-17.2); WHITE BLOOD COUNT 7.3 TH/MM3 (4.0-11.0)
[2017-03-12 07:15] LABS: BICARBONATE 25.2 MEQ/L (21.0-32.0); HDL CHOLESTEROL 64.1 MG/DL (40.0-60.0); POTASSIUM 3.8 MEQ/L (3.5-5.1)
[2017-03-12 07:34] LABS: CALCIUM-PROTEIN CORRECTED 8.3 MG/DL (8.5-10.1)
[2017-03-12] MEDS: PANTOPRAZOLE SODIUM 40 MG VIAL IV PUSH SCH ×2 (08:23→21:04)
[2017-03-12] MEDS: ASPIRIN EC 81 MG TABEC PO SCH (08:23)
[2017-03-12] MEDS: METOPROLOL TARTRATE 25 MG TAB PO SCH ×2 (08:23→21:03)
[2017-03-12] MEDS: SODIUM CHLORIDE 0.9% FLUSH 10 ML FLUSH IV FLUSH SCH ×2 (08:24→21:04)
--- NOTE | 2017-03-12 09:30 | HHI.PR ---
Subjective Remarks Follow-up for chest pain Patient will have a cardiovascular surgeon consult for possible CABG. He denies any chest pain, shortness of breathing, lightheadedness, dizziness, or palpitation. Patient feels like he is at his baseline. Objective Vitals Vital Signs Date Time Temp Pulse Resp B/P Pulse Ox O2 Delivery O2 Flow Rate FiO2 03/12/17 08:29 78 03/12/17 06:00 63 03/12/17 05:04 65 03/12/17 04:00 68 03/12/17 03:00 65 03/12/17 03:00 98.4 64 18 110/54 96 03/12/17 02:00 57 03/12/17 01:00 66 03/12/17 00:00 68 03/11/17 23:33 98.9 67 18 119/85 99 03/11/17 23:00 59 03/11/17 22:00 69 03/11/17 21:00 70 03/11/17 20:04 73 03/11/17 20:04 99.1 73 18 128/76 98 03/11/17 19:00 69 03/11/17 18:24 98.7 66 20 124/75 100 03/11/17 15:30 100 Room Air 03/11/17 12:32 56 03/11/17 12:04 98.2 61 21 127/76 98 03/11/17 10:30 60 120/71 123/79 129/81 I/O 03/11/17 03/11/17 03/11/17 03/12/17 03/12/17 03/12/17 06:59 14:59 22:59 06:59 14:59 22:59 Intake Total 240 ml Output Total 475 ml Balance -235 ml Intake Oral 240 ml Output Urine Total 475 ml Result Diagram: 03/12/17 0545 03/12/17 0545 Objective Remarks GENERAL: in NAD SKIN: Warm and dry. HEAD: Normocephalic. EYES: No scleral icterus. No injection or drainage. NECK: Supple, trachea midline. No JVD or lymphadenopathy. CARDIOVASCULAR: Regular rate and rhythm without murmurs, gallops, or rubs. RESPIRATORY: Breath sounds equal bilaterally. No accessory muscle use. GASTROINTESTINAL: Abdomen soft, non-tender, nondistended. MUSCULOSKELETAL: No cyanosis, or edema. BACK: Nontender without obvious deformity. No CVA tenderness. NEURO: AAO X 3. CN 2-12 intact. Motor and sensation grossly intact. Medications and IVs Current Medications Sodium Chloride (NS Flush) 2 ml UNSCH PRN IV FLUSH FLUSH AFTER USING IV ACCESS ; Start 03/10/17 at 20:45; Stop 03/11/17 at 15:51; Status DC Sodium Chloride (NS Flush) 2 ml BID IV FLUSH Last administered on 03/11/17 10: 18; Start 03/10/17 at 21:00; Stop 03/11/17 at 15:51; Status DC Naloxone HCl (Narcan Inj) 0.4 mg UNSCH PRN IV SEE LABEL COMMENTS; Start at 20:45 Pantoprazole Sodium (Protonix Inj) 40 mg Q12HR IV PUSH Last administered on 08:23; Start 03/10/17 at 21:00 Enoxaparin Sodium (Lovenox Inj) 70 mg Q12H SQ ; Start 03/11/17 at 02:00; Stop at 15:52; Status DC Aspirin (Ecotrin Ec) 81 mg DAILY PO Last administered on 03/12/17 08:23; Start 03/11/17 at 10:45 Metoprolol Tartrate (Lopressor) 12.5 mg Q12HR PO Last administered on 08:23; Start 03/11/17 at 10:45 Miscellaneous (Pill Splitter) 1 ea UNSCH PRN OTHER SEE LABEL COMMENTS Last administered on 03/11/17 12:17; Start 03/11/17 at 11:00 Atorvastatin Calcium 80 mg 80 mg HS PO Last administered on 03/11/17 21:37; Start 03/11/17 at 21:00 Heparin Sodium/ Sodium Chloride (Heparin-NS/Pf Inj) 500 ml @ As Directed STK- MED ONCE .ROUTE Last administered on 03/11/17 14:04; Start 03/11/17 at 14:04; Stop 03/11/17 at 14:05; Status DC Heparin Sodium (Porcine) (Heparin Inj) 10,000 units STK-MED ONCE .ROUTE Last administered on 03/11/17 14:51; Start 03/11/17 at 14:47; Stop 03/11/17 at 14:48 ; Status DC Adenosine (Adenoscan Inj) 90 mg STK-MED ONCE .ROUTE ; Start 03/11/17 at 14:51; Stop 03/11/17 at 14:52; Status DC Sodium Chloride (NS Flush) 2 ml UNSCH PRN IV FLUSH FLUSH AFTER USING IV ACCESS ; Start 03/11/17 at 15:30 Sodium Chloride (NS Flush) 2 ml BID IV FLUSH Last administered on 03/12/17t 08: 24; Start 03/11/17 at 21:00 Miscellaneous Information 1 ONCE ONCE XX ; Start 03/11/17 at 15:30; Stop at 15:51; Status DC A/P Problem List: (1) Syncope ICD Code: R55 Status: Acute (2) Elevated troponin ICD Code: R74.8 Status: Acute Assessment and Plan Syncope -due to NSTEMI. -Status post cardiac catheterization done on 03/11/2017 showing multi-vascular disease. -Cardiac vascular surgeon consulted for possible CABG. Pending consult. NSTEMI - Patient is asymptomatic. He is on beta imani, aspirin, statin. -See treatment as above. Questionable hx of GI bleed a few weeks ago - No signs of GI bleed. Hemoglobin has been stable. -Patient does have a perl programmer as outpatient. This can be follow-up as outpatient. DVT prophylaxis- SCD Discharge Planning Pending recommendations from cardiovascular surgeon. Patient most likely needs CABG. Problem Qualifiers (1) Syncope: Qualified Code: R55 - Syncope, unspecified syncope type Trang Casanova MD Mar 12, 2017 09:30
[2017-03-12] MEDS ORDERED: GADODIAMIDE PF 287 MG/ML 10 ML VIAL (for RAD MRI) IV ONE (12:06)
--- NOTE | 2017-03-12 13:13 | MB ---
cc: YEYO ARBOLEDA MD DATE OF CONSULTATION 03/12/2017 DATE OF 1945. HISTORY OF PRESENT ILLNESS A 71-year-old male, patient of Dr. Stephen Ricks and Dr. Dennis with history of coronary artery disease and who recently underwent a complex intervention involving the proximal LAD and the diagonal. He was placed on dual antiplatelet therapy including Xarelto due to simultaneous atrial fibrillation post PCI. He apparently developed some GI bleed, had some black tarry stools and one episodes of some bloody stools, was discontinued on his anticoagulation dual antiplatelet therapy. His plan was to follow up with Dr. Snider but, however, there is mention of Dr. Dickerson and the patient had not seen him as of the yet. He apparently was having lunch with a friend prior to admission, developed some nausea and had a syncopal event. The initial EKG shows some ST elevation in lead I, aVL, did not appear consistent with injury. Subsequent EKG showed resolution. The patient was incompletely asymptomatic. He denies having any chest pain or shortness of breath. No fever, chills, cough, no further mention of any bloody stools. No paroxysmal nocturnal dyspnea. No orthopnea. He was admitted and found to have a troponin of 1.60 and underwent coronary catheterization yesterday which showed an EF of 60%, proximal LAD 80%, the diagonal 80%, the RCA 30%. We were consulted to evaluate for coronary artery bypass grafting. There was concern yesterday that the patient has history of dementia and is on Namenda and that his daughter Chery Blake was spoken to and apparently she is the power of claim attorney and was okay with him to undergo coronary artery bypass grafting. PAST MEDICAL HISTORY 1. Coronary artery disease. 2. Hyperlipidemia. 3. Dementia on Namenda. PAST SURGICAL HISTORY 1. Colonoscopy. 2. Stent. 3. He says he has had some back surgery. ALLERGIES No known allergies. HOME MEDICATIONS Initially included - 1. Namenda. 2. Lipitor. 3. Levothyroxine. 4. He has been off the Xarelto and aspirin which he is back on now. FAMILY HISTORY Noncontributory. SOCIAL HISTORY Lives alone. . Three children. He drives. He does his cooking and cleaning. His grandson is in the room. REVIEW OF SYSTEMS As above in the HPI, otherwise 12 systems unremarkable. PHYSICAL EXAMINATION VITAL SIGNS: Blood pressure 118/70, heart rate of 70, afebrile on room air. GENERAL: The patient is awake, alert, in no acute distress. HEENT: Head is normocephalic, atraumatic. Pupils equal and reactive. Oral mucosa pink, moist. NECK: Supple. No JVD. HEART SOUNDS: S1, S2. Regular rate and rhythm. No audible rubs or gallops. LUNGS: Clear to auscultation. No wheezes, rales or rhonchi. ABDOMEN: Soft, nontender. No masses or organomegaly. EXTREMITIES: No cyanosis, clubbing or edema. LAB WORK Hemoglobin 10.5, hematocrit of 30. White cell count of 7.3, platelet count of 275. Sodium 142, potassium 3.8, BUN of 25, creatinine of 0.97. Troponin 1.60. Triglycerides 77, cholesterol 145, LDL 66, HDL 64. Urine drug screen is negative. CHEST X-RAY Showed some mild cardiomegaly. CT HEAD Unremarkable. EKG Sinus rhythm with some poor R-wave progression in the anterior leads. IMPRESSION AND PLAN This is a 71-year-old male admitted with a non-STEMI, also syncopal episode, recent GI bleed, paroxysmal atrial fibrillation, was on dual antiplatelet therapy which he has been off for the last couple of weeks. Underwent cardiac cath by Dr. Dennis with 80% LAD, diagonal with 80%, RCA 30%. We were consulted to evaluate for possible coronary artery bypass grafting. The cardiac films will be reviewed by Dr. Yeyo Arboleda and in lengthy discussion with the daughter since she is the power of claim attorney, the patient clearly has some short-term memory issues. However, he is in fairly overall good health. Planning as per Dr. Yeyo Arboleda in regards to surgery. However, he will still need GI clearance prior to surgery. Dictated by: CORDELL Romeo Yeyo SPENCER/SHERIE /10:24 AM /12:59 PM
--- NOTE | 2017-03-12 13:37 | MB ---
cc: RYLIE PHILLIPS M.D., MICHAEL PASRICHA, SUNIL P. M.D. DATE OF CONSULTATION 03/12/2017 DATE OF 1945 REASON FOR CONSULTATION I was asked to see this patient in consultation for evaluation of rectal bleeding. HISTORY The patient is a pleasant 71-year white female who has been followed by Dr. Dickerson in the office. The patient had a colonoscopy done in September 03, 2014 for altered bowel habits and the biopsy did not show any colitis. There were internal hemorrhoids noted. There was an adenomatous colon polyp which was removed. No diverticula seen. The upper endoscopy around the same time did not show any obvious sprue. There is a possibility of Langston's, but on second opinion no Langston's is noted. The patient was last seen in the office on January 03, 2015 and working diagnosis was possible bacterial overgrowth, dietary intolerance etc. He was supposed to followup but, he did not do that. Apparently the patient had an episode of syncope and on further questioning, he has had rectal bleeding - mainly on the toilet paper, but some time it is more significant according to ER records. He was admitted to the hospital and he turned out to have a non-ST elevated myocardial infarction and cardiac catheterization revealed multivessel disease and consideration was being done for a cardiac bypass - possibly tomorrow. In the hospital, he has not had any further bleeding. There has been no constipation or melena or hematochezia and no dysphagia, nausea or vomiting. Most of the history was obtained from the patient's chart since the patient has some dementia. PAST HISTORY Significant for: 1. Coronary artery disease with stenting. The patient is on Xarelto. 2. Dyslipidemia 3. Colon polyps 4. Esophagitis 5. Gastric ulcer in the past 6. Hypothyroidism 7. Hemorrhoids 8. Paroxysmal atrial fibrillation PAST SURGICAL HISTORY 1. Appendectomy 2. Upper endoscopy and colonoscopy both September 06, 2014. 3. Cardiac cath with stenting 4. Back surgery SOCIAL HISTORY Occasional alcohol. Currently does not smoke. ALLERGIES Denies any allergies to me. FAMILY HISTORY Noncontributory for this admission. REVIEW OF SYSTEMS No weight loss or confusion. CARDIOVASCULAR: He denies any current chest pain, palpitations or wheezing. GASTROINTESTINAL: Please see above. I could not elicit a complete review of systems because of dementia because he would not answer every question, but it appears to be an unremarkable 10-point review of systems. MEDICATIONS Apparently include: 1. Lipitor 2. Aspirin 3. Lopressor 4. Pantoprazole 5. Narcan 6. He was on Xarelto as an outpatient and is currently off this. PHYSICAL EXAMINATION VITAL SIGNS: Blood pressure is 118/72, pulse 68, respiratory rate 18, temperature 98.2. GENERAL: This is an elderly white male resting comfortably appears to be in no acute GI distress. HEAD, EYES, EARS, NOSE, AND THROAT: Pupils are equal and react to light. No obvious scleral icterus. Oropharynx has dental caries. No tongue deviation or Candidal lesions. Hearing was intact. NECK: Supple. No thyromegaly or lymphadenopathy. LUNGS: Clear to auscultation and percussion. HEART: Regular rhythm. No gross murmurs are heard. ABDOMEN: Soft, nondistended, nontender. No organomegaly, masses, ascites or tenderness. EXTREMITIES: No cyanosis or edema. NEUROLOGIC: Cranial nerves II-XII are grossly intact. He appears to be alert and oriented times three. I did not assess his gait. RECTAL: I did not do a rectal exam on him, there is no bertrand blood noted on rectal exam, but stool was heme positive. SKIN: Warm and dry. DATA [facility] on admission revealed a of 11.2, hematocrit of 34.3, MCV 94.9, white blood count of 6000, platelet count 306,000. The hemoglobin then dropped to 10.9, 10.5 and remained at 10.5 this morning. His pro-time 10.2, INR 0.9, PTT 20.7. Sodium 142, potassium 3.8, BUN 24 is elevated, creatinine 0.97. (BUN elevated relative to his creatinine throughout this stay.) His troponin is 1.60 is elevated. CPKs have been unremarkable. SGOT 31, SGPT of 26, alk phos of 63, total bilirubin 0.9 - although relatively normal. IMPRESSIONS 1. Heme-positive stools - he describes blood on the toilet paper - prob hemorrhoidal bleeding, but according to ER records, he may have had more significant bleeding also. At this time, with no further bleeding, his hemoglobin has stabilized. We talked about the differential and heme-positive stools including hemorrhoids, IBD, colon cancer, colon polyps, peptic ulcer disease, AVMs, etc. I discussed this with the patient as well as I believe the patient's grandson. 2. Rectal bleeding. See above - colonoscopy on 04/03/2014 revealed hemorrhoids. 3. Severe coronary disease 4. Syncope 5. Mild anemia, stable. RECOMMENDATIONS 1. Obvious at that time, his cardiac status takes precedence. He is to undergo cardiac bypass surgery tomorrow. 2. Since there is no overt GI bleeding at this time and hemoglobin has stabilized, I will simply observe him. Ultimately, he will need an outpatient work up (both upper endoscopy and colonoscopy) when he is stable from the cardiac standpoint. 3. The patient is currently on a PPI for peptic ulcer disease prophylaxis. 4. Further recommendations depends on how he does. MD DAYDAY Kerr/JOSH /10:50 AM /1:09 PM [facility]
--- NOTE | 2017-03-12 13:59 | PD.CARD.PN ---
Subjective Subjective Remarks alert in nad Objective Vital Signs / I&O Vital Signs Date Time Temp Pulse Resp B/P Pulse Ox O2 Delivery O2 Flow Rate FiO2 03/12/17 13:28 55 03/12/17 12:08 82 03/12/17 11:42 97.4 72 18 120/70 03/12/17 10:37 81 03/12/17 09:54 98.2 68 18 118/72 96 03/12/17 09:52 81 03/12/17 08:29 78 03/12/17 06:00 63 03/12/17 05:04 65 03/12/17 04:00 68 03/12/17 03:00 65 03/12/17 03:00 98.4 64 18 110/54 96 03/12/17 02:00 57 03/12/17 01:00 66 03/12/17 00:00 68 03/11/17 23:33 98.9 67 18 119/85 99 03/11/17 23:00 59 03/11/17 22:00 69 03/11/17 21:00 70 03/11/17 20:04 73 03/11/17 20:04 99.1 73 18 128/76 98 03/11/17 19:00 69 03/11/17 18:24 98.7 66 20 124/75 100 03/11/17 15:30 100 Room Air I/O 03/11/17 03/11/17 03/11/17 03/12/17 03/12/17 03/12/17 07:00 15:00 23:00 07:00 15:00 23:00 Intake Total 240 ml Output Total 475 ml Balance -235 ml Intake Oral 240 ml Output Urine Total 475 ml Laboratory Laboratory Tests Test 03/12/17 05:45 White Blood Count 7.3 TH/MM3 Red Blood Count 3.27 MIL/MM3 Hemoglobin 10.5 GM/DL Hematocrit 30.6 % Mean Corpuscular Volume 93.6 FL Mean Corpuscular Hemoglobin 32.2 PG Mean Corpuscular Hemoglobin 34.4 % Concent Red Cell Distribution Width 13.7 % Platelet Count 275 TH/MM3 Mean Platelet Volume 8.7 FL Neutrophils (%) (Auto) 77.9 % Lymphocytes (%) (Auto) 14.0 % Monocytes (%) (Auto) 7.0 % Eosinophils (%) (Auto) 0.8 % Basophils (%) (Auto) 0.3 % Neutrophils # (Auto) 5.7 TH/MM3 Lymphocytes # (Auto) 1.0 TH/MM3 Monocytes # (Auto) 0.5 TH/MM3 Eosinophils # (Auto) 0.1 TH/MM3 Basophils # (Auto) 0.0 TH/MM3 CBC Comment DIFF FINAL Differential Comment Sodium Level 142 MEQ/L Potassium Level 3.8 MEQ/L Chloride Level 108 MEQ/L Carbon Dioxide Level 25.2 MEQ/L Anion Gap 9 MEQ/L Blood Urea Nitrogen 24 MG/DL Creatinine 0.97 MG/DL Estimat Glomerular Filtration 76 ML/MIN Rate Random Glucose 80 MG/DL Calcium Level 7.4 MG/DL Protein Corrected Calcium 8.3 MG/DL Total Creatine Kinase 103 U/L Total Protein 5.4 GM/DL Triglycerides Level 77 MG/DL Cholesterol Level 145 MG/DL LDL Cholesterol 66 MG/DL HDL Cholesterol 64.1 MG/DL Cholesterol/HDL Ratio 2.26 RATIO Assessment and Plan Problem List: (1) Syncope (2) GI bleed (3) Elevated troponin (4) CAD (coronary artery disease) (5) NSTEMI (non-ST elevated myocardial infarction) Assessment and Plan 1.) CAD - pre-op cabg, f/u mra, GI eval, CT surg eval, monitor cbc, continue aspirin, lovenox, lipitor Problem Qualifiers (1) Syncope: Qualified Code: R55 - Syncope, unspecified syncope type (2) GI bleed: Qualified Code: K92.2 - Gastrointestinal hemorrhage, unspecified gastrointestinal hemorrhage type Nader Dennis MD Mar 12, 2017 13:59
--- NOTE | 2017-03-12 14:37 | RADRPT ---
EXAM DATE/TIME: 03/12/2017 11:38 [facility] COMPARISON: No previous studies available for comparison. INDICATIONS : Aneursym. CONTRAST: 30 cc Omniscan (gadodiamide) IV MEDICAL HISTORY : None. SURGICAL HISTORY : Appendectomy. LAD stent ENCOUNTER: Subsequent ACUITY: 2 day PAIN SCORE: 0/10 LOCATION: chest TECHNIQUE: Bolus infused MR angiography was performed yielding 3D reconstructed images of the chest. FINDINGS: Thoracic aorta: The aortic root measures 3.2 cm. The ascending aorta measures 3.4 cm in maximum dimension. The arch i s normal in caliber measuring approximately 2.5 cm. The origins of the great vessels are widely paten t. The descending thoracic thoracic aorta is normal in caliber with a maximum dimension of 2.5 cm. Th e limited portions of upper abdomen abdominal aorta visualized are unremarkable. Source data: The soft tissues of the chest appear unremarkable. CONCLUSION: The aortic root, ascending aorta, arch and descending thoracic aorta are normal in caliber. Migue Coleman MD on March 12, 2017 at 14:31 Board Certified Radiologist. This report was verified electronically.
--- NOTE | 2017-03-12 15:23 | EKG ---
Date Performed: 03/12/2017 Time Performed: 05:40:48 PTAGE: 71 years EKG: Sinus bradycardia with PAC(s) Poor R wave progression - probable normal variant Low QRS vol tages in precordial leads Borderline ECG Compared to prior tracing no significant change PREVIOUS TRACING : 03/11/2017 04.15 DOCTOR: Nader Dennis Interpretating Date/Time 03/12/2017 15:21:54
--- NOTE | 2017-03-12 16:22 | RADRPT ---
EXAM DATE/TIME: 03/12/2017 14:44 [facility] COMPARISON: No previous studies available for comparison. INDICATIONS : PreOp cardiac surgery. MEDICAL HISTORY : Hypercholesterolemia. Anticoagulant therapy, xarelto. Electrocardiogram. SURGICAL HISTORY : Appendectomy. Cardiac stent placement. ENCOUNTER: Initial ACUITY: 1 day PAIN SCORE: 0/10 LOCATION: Bilateral legs. TECHNIQUE: Venous ultrasound of the left and right leg was performed from the inguinal ligament to the proximal calf. Real-time, color Doppler and spectral tracing, compression and augmentation techniques were us ed. FINDINGS: RIGHT LEG: There is normal compressibility of the deep venous system from the inguinal region to the proximal ca lf. No echogenic clot is seen in the lumen of the common femoral, femoral, popliteal, and posterior tibial veins. There is a normal response of the venous system to proximal and distal augmentation an d respiration. LEFT LEG: There is normal compressibility of the deep venous system from the inguinal region to the proximal ca lf. No echogenic clot is seen in the lumen of the common femoral, femoral, popliteal, and posterior tibial veins. There is a normal response of the venous system to proximal and distal augmentation an d respiration. CONCLUSION: No evidence of deep venous thrombosis within the lower extremities. Santana Johnson MD on March 12, 2017 at 16:19 Board Certified Radiologist. This report was verified electronically.
[2017-03-12] MEDS ORDERED: METOPROLOL TARTRATE 25 MG TAB PO SCH (16:30)
[2017-03-12] MEDS ORDERED: PAPAVERINE INJ 60 MG, NITROGLYCERIN INJ 100 MCG, DILTIAZEM INJ 100 MG in SODIUM CHLORID... IRRIGATION SCH (16:30)
[2017-03-12] MEDS ORDERED: ceFAZolin 2 GM PREMIX 50 ML IV SCH (16:30)
[2017-03-12] MEDS ORDERED: INSULIN REGULAR (IV INFUSION) 100 UNITS in SODIUM CHLORIDE 0.9% INJ 100 ML IV SCH (16:30)
[2017-03-12] MEDS ORDERED: CHLORHEXIDINE GLUCONATE 4% SOLN 120 ML BTL TOPICAL SCH (16:30)
[2017-03-12] MEDS ORDERED: SODIUM CHLORIDE 0.9% FLUSH 10 ML FLUSH IV FLUSH PRN (16:30)
[2017-03-12] MEDS ORDERED: CEFAZOLIN INJ 500 MG in SODIUM CHLORIDE 0.9% IRR BTL 500 ML IRRIGATION SCH (16:30)
--- NOTE | 2017-03-12 16:50 | PD.CAR.PN ---
CVT Progress Note Subjective/Hospital Course: sts data discussed with pt RISK SCORES About the STS Risk Calculator Procedure: CAB Only Risk of Mortality: 0.769% Morbidity or Mortality: 7.282% Long Length of Stay: 2.679% Short Length of Stay: 61.794% Permanent Stroke: 0.473% Prolonged Ventilation: 4.485% DSW Infection: 0.243% Renal Failure: 1.02% Reoperation: 4.036% Objective: Vital Signs Date Time Temp Pulse Resp B/P Pulse Ox O2 Delivery O2 Flow Rate FiO2 03/12/17 16:06 66 03/12/17 15:28 97.0 66 18 124/74 97 03/12/17 15:28 64 03/12/17 14:07 66 03/12/17 13:28 55 03/12/17 12:08 82 03/12/17 11:42 97.4 72 18 120/70 03/12/17 10:37 81 03/12/17 09:54 98.2 68 18 118/72 96 03/12/17 09:52 81 03/12/17 08:29 78 03/12/17 06:00 63 03/12/17 05:04 65 03/12/17 04:00 68 03/12/17 03:00 65 03/12/17 03:00 98.4 64 18 110/54 96 03/12/17 02:00 57 03/12/17 01:00 66 03/12/17 00:00 68 03/11/17 23:33 98.9 67 18 119/85 99 03/11/17 23:00 59 03/11/17 22:00 69 03/11/17 21:00 70 03/11/17 20:04 73 03/11/17 20:04 99.1 73 18 128/76 98 03/11/17 19:00 69 03/11/17 18:24 98.7 66 20 124/75 100 Labs: Laboratory Tests Test 03/12/17 05:45 White Blood Count 7.3 TH/MM3 (4.0-11.0) Red Blood Count 3.27 MIL/MM3 (4.50-5.90) Hemoglobin 10.5 GM/DL (13.0-17.0) Hematocrit 30.6 % (39.0-51.0) Mean Corpuscular Volume 93.6 FL (80.0-100.0) Mean Corpuscular Hemoglobin 32.2 PG (27.0-34.0) Mean Corpuscular Hemoglobin 34.4 % Concent (32.0-36.0) Red Cell Distribution Width 13.7 % (11.6-17.2) Platelet Count 275 TH/MM3 (150-450) Mean Platelet Volume 8.7 FL (7.0-11.0) Neutrophils (%) (Auto) 77.9 % (16.0-70.0) Lymphocytes (%) (Auto) 14.0 % (9.0-44.0) Monocytes (%) (Auto) 7.0 % (0.0-8.0) Eosinophils (%) (Auto) 0.8 % (0.0-4.0) Basophils (%) (Auto) 0.3 % (0.0-2.0) Neutrophils # (Auto) 5.7 TH/MM3 (1.8-7.7) Lymphocytes # (Auto) 1.0 TH/MM3 (1.0-4.8) Monocytes # (Auto) 0.5 TH/MM3 (0-0.9) Eosinophils # (Auto) 0.1 TH/MM3 (0-0.4) Basophils # (Auto) 0.0 TH/MM3 (0-0.2) CBC Comment DIFF FINAL Differential Comment Sodium Level 142 MEQ/L (136-145) Potassium Level 3.8 MEQ/L (3.5-5.1) Chloride Level 108 MEQ/L (98-107) Carbon Dioxide Level 25.2 MEQ/L (21.0-32.0) Anion Gap 9 MEQ/L (5-15) Blood Urea Nitrogen 24 MG/DL (7-18) Creatinine 0.97 MG/DL (0.60-1.30) Estimat Glomerular Filtration 76 ML/MIN (>89) Rate Random Glucose 80 MG/DL (74-106) Calcium Level 7.4 MG/DL (8.5-10.1) Protein Corrected Calcium 8.3 MG/DL (8.5-10.1) Total Creatine Kinase 103 U/L (39-308) Total Protein 5.4 GM/DL (6.4-8.2) Triglycerides Level 77 MG/DL (42-150) Cholesterol Level 145 MG/DL (120-200) LDL Cholesterol 66 MG/DL (0-99) HDL Cholesterol 64.1 MG/DL (40.0-60.0) Cholesterol/HDL Ratio 2.26 RATIO Result Diagram: 03/12/1745 03/12/1745 (1) Syncope (2) GI bleed (3) Elevated troponin (4) CAD (coronary artery disease) (5) NSTEMI (non-ST elevated myocardial infarction) Problem Qualifiers (1) Syncope: Qualified Code: R55 - Syncope, unspecified syncope type (2) GI bleed: Qualified Code: K92.2 - Gastrointestinal hemorrhage, unspecified gastrointestinal hemorrhage type Jalyn Underwood Mar 12, 2017 16:50
--- NOTE | 2017-03-12 16:59 | RADRPT ---
EXAM DATE/TIME: 03/12/2017 14:30 [facility] COMPARISON: No previous studies available for comparison. INDICATIONS : PreOp cardiac surgery. MEDICAL HISTORY : Hypercholesterolemia. Anticoagulant therapy, xarelto. Electrocardiogram. SURGICAL HISTORY : Appendectomy. Cardiac stent placement. ENCOUNTER: Initial ACUITY: 1 day PAIN SCORE: 0/10 LOCATION: Bilateral neck PEAK SYSTOLIC VELOCITIES (cm/sec): ICA/CCA RATIO: Right: 1.5 Left: 1.2 ICA: Right: 98 Left: 91 CCA: Right: 65 Left: 75 ECA: Right: 115 Left: 72 VERTEBRAL: Right: 32 antegrade Left: 55 antegrade Elevated flow velocities and ICA/CCA ratios have been found to correlate with increased degrees of vessel stenosis, calculated as percentage of diameter relative to a normal segment of distal ICA/CCA FINDINGS: RIGHT CAROTID: No significant stenosis is visualized. There is mild atherosclerotic plaquing at the bifurcation. Th e waveforms are within normal limits. LEFT CAROTID: There is atherosclerotic plaquing at the bifurcation. The waveforms are within normal limits. VERTEBRAL ARTERIES: Antegrade flow is seen in both vertebral arteries. MISCELLANEOUS: None. CONCLUSION: 1. Densely calcified atherosclerotic plaque on the left. There is mild atherosclerotic plaquing on th e right. No hemodynamically significant carotid artery stenosis evident by velocity indices. Migue Coleman MD on March 12, 2017 at 16:56 Board Certified Radiologist. This report was verified electronically.
--- NOTE | 2017-03-12 17:00 | RADRPT ---
EXAM DATE/TIME: 03/12/2017 14:55 [facility] COMPARISON: US LEG BILATERAL VENOUS DOPPLER, March 12, 2017, 14:44. INDICATIONS : PreOp cardiac surgery. MEDICAL HISTORY : Hypercholesterolemia. Anticoagulant therapy, xarelto. Electrocardiogram. SURGICAL HISTORY : Appendectomy. Cardiac stent placement. ENCOUNTER: Initial ACUITY: 1 day PAIN SCORE: 0/10 LOCATION: Bilateral legs. GREATER SAPHENOUS VEIN THIGH: PROXIMAL: Right 3 mm Left 5 mm MID: Right 3 mm Left 2 mm DISTAL: Right 2 mm Left 3 mm CALF: PROXIMAL: Right 2 mm Left 2 mm MID: Right 1 mm Left Non-visualized DISTAL: Right 1 mm Left Non-visualized FINDINGS: The venous system of the lower extremities are patent by color Doppler imaging. Measurements of the leg veins (in mm) are listed above. CONCLUSION: 1. Vein mapping as above. 2. No DVT identified. Migue Coleman MD on March 12, 2017 at 16:58 Board Certified Radiologist. This report was verified electronically.
[2017-03-12] MEDS ORDERED: diphenhydrAMINE HCL 25 MG CAP PO ONE (20:45)
[2017-03-12] MEDS: ATORVASTATIN 80 MG TAB PO SCH (21:04)
[2017-03-12 22:31] LABS: HEMOGLOBIN A1a 1.1 %; HEMOGLOBIN A1b 0.7 %; HEMOGLOBIN Ao 86.2 %; HEMOGLOBIN F 0.7 %; HEMOGLOBIN LA1C 1.7 %
[2017-03-13] VITALS (25 sets, daily range): BP systolic 104–131; BP diastolic 67–79; PULSE 52–78; RESP 16–18; TEMP 97.9–98.9; O2SAT 93–100
--- NOTE | 2017-03-13 08:51 | PD.CARD.PN ---
Subjective Subjective Remarks asleep in nad Objective Vital Signs / I&O Vital Signs Date Time Temp Pulse Resp B/P Pulse Ox O2 Delivery O2 Flow Rate FiO2 03/13/17 06:05 54 03/13/17 05:00 56 03/13/17 04:10 72 03/13/17 03:00 98.7 57 18 104/73 96 03/13/17 03:00 59 03/13/17 02:00 58 03/13/17 01:00 52 03/13/17 00:00 52 03/12/17 23:00 98.7 59 18 128/90 96 03/12/17 23:00 61 03/12/17 22:00 85 03/12/17 21:00 60 03/12/17 20:00 59 03/12/17 19:46 98.5 87 18 120/77 96 03/12/17 19:00 62 03/12/17 18:01 62 03/12/17 17:08 66 03/12/17 16:06 66 03/12/17 15:28 97.0 66 18 124/74 97 03/12/17 15:28 64 03/12/17 14:07 66 03/12/17 13:28 55 03/12/17 12:08 82 03/12/17 11:42 97.4 72 18 120/70 03/12/17 10:37 81 03/12/17 09:54 98.2 68 18 118/72 96 03/12/17 09:52 81 I/O 03/12/17 03/12/17 03/12/17 03/13/17 03/13/17 03/13/17 07:00 15:00 23:00 07:00 15:00 23:00 Intake Total 240 ml 0 ml 480 ml Output Total 475 ml 575 ml Balance -235 ml -575 ml 480 ml Intake Oral 240 ml 480 ml IV Total 0 ml Output Urine Total 475 ml 575 ml # Voids 4 Laboratory GENERAL: SKIN: Warm and dry. HEAD: Normocephalic. EYES: No scleral icterus. No injection or drainage. NECK: Supple, trachea midline. No JVD or lymphadenopathy. CARDIOVASCULAR: Regular rate and rhythm without murmurs, gallops, or rubs. RESPIRATORY: Breath sounds equal bilaterally. No accessory muscle use. GASTROINTESTINAL: Abdomen soft, non-tender, nondistended. MUSCULOSKELETAL: No cyanosis, or edema. BACK: Nontender without obvious deformity. No CVA tenderness. Laboratory Tests Test 03/12/17 22:49 Nasal Screen MRSA (PCR) MRSA NOT DETECTED Assessment and Plan Problem List: (1) Syncope (2) GI bleed (3) Elevated troponin (4) CAD (coronary artery disease) (5) NSTEMI (non-ST elevated myocardial infarction) Assessment and Plan 1.) CAD - pre-op cabg, continue lipitor Problem Qualifiers (1) Syncope: Qualified Code: R55 - Syncope, unspecified syncope type (2) GI bleed: Qualified Code: K92.2 - Gastrointestinal hemorrhage, unspecified gastrointestinal hemorrhage type Nader Dennis MD Mar 13, 2017 08:51
[2017-03-13] MEDS: METOPROLOL TARTRATE 25 MG TAB PO SCH ×2 (09:32→23:03)
[2017-03-13] MEDS: ASPIRIN EC 81 MG TABEC PO SCH (09:32)
[2017-03-13] MEDS: SODIUM CHLORIDE 0.9% FLUSH 10 ML FLUSH IV FLUSH SCH ×2 (09:32→23:04)
[2017-03-13] MEDS: PANTOPRAZOLE SODIUM 40 MG VIAL IV PUSH SCH ×2 (09:32→23:04)
--- NOTE | 2017-03-13 10:43 | MA ---
cc: BRENTON RICK M.D. DATE: 03/11/2017 PROCEDURE Right heart catheterization, left heart catheterization, coronary angiography, left ventriculography. INDICATIONS Non-STEMI, syncope, coronary artery disease. DETAILS OF PROCEDURE The patient was brought to the cardiac catheterization laboratory, prepped and draped in the usual sterile fashion. 10 cc of 1% lidocaine was used to locally anesthetize the right common femoral artery. 4-Sammarinese JR4 and JL6 diagnostic catheters were used to perform left and right coronary angiography and left ventriculography. The right heart catheterization was performed first with the following findings: Pulmonary capillary wedge pressure 9/8-8. PA pressure 21/7-13. RV pressure 23/0-4. RA pressure 7/4-3. Cardiac output by Amanda 8.4 liters per minute. Cardiac index by Amanda 4.4 liters per minute per meter squared. FA sat 97.7% on room air. PA sat 77.6% on room air. RA sat 77.3% on room air. Left heart catheterization was then performed with 4-Sammarinese JR4 and JL6 diagnostic catheters with the following findings: LV pressure 120/5-6. Ejection fraction 60%. The right coronary artery is large and dominant. It has mild to moderate fibrocalcification, particularly in the mid to distal segment. The vessel appears to be ectatic, probably 5.5 to 6 mm in diameter at least, all the way to the midsegment at which point in time there is a stepdown in vessel diameter to probably 4.5 to 5 mm. Relative stenosis is probably 30%. The right PDA has a proximal 40-50% stenosis. The right posterolateral artery has no significant obstructive disease. The left main coronary has mild ostial proximal disease up to 20% angiographically. The mid LAD is heavily calcified fluoroscopically. There is a severe in-stent stenosis at the mid LAD stent with estimated stenosis of at least 75%. The LAD beyond that approaches the apex but is not quite transapical. There is at least a medium to large size diagonal vessel coming off the mid LAD which has an ostial 90% stenosis. It has about a 30-degree angulation off the LAD. The left circumflex vessel is ectatic in the proximal segment, probably measures at least 5 mm in diameter at maximal diameter. The first obtuse marginal vessel has a very high takeoff. There is mild diffuse disease in the ostial proximal segment up to 20% angiographically. The remainder of the AV groove left circumflex vessel has no significant obstructive disease. The 4-Sammarinese sheath was exchanged for a 6-Sammarinese sheath. 70 units/kilogram of heparin was given. The ACT was 200. Note, I used multiple guide catheters in an attempt to cannulate the ostium of the left main which from prior cath was extremely difficult due to severe posterior rotation of the left main ostium and also what appears to be probable thoracic aortic aneurysm. I cannot cannulate the ostium of the left main with a guide catheter using a JL6 guide catheter, XB 4.5 guide catheter, AL3 guide catheter as well as a XB LAD guide catheter 4.5. Again the stenosis in the proximal LAD did appear to be least 75% anyway, therefore further attempts were discontinued. CONCLUSIONS 1. Non-STEMI, culprits probable first diagonal artery and/or LAD with complex anatomy involving severe fibrocalcification, 30 degree angulation of the diagonal off the LAD with the diagonal being at least a moderate to possibly large vessel, at least probably 90% stenosis in the ostium of the diagonal vessel with a 75% stenosis at least in the proximal LAD stent. Again, heavy fibrocalcification and also extremely difficult access to the left main ostium due to severe posterior rotation and probable thoracic aortic aneurysm. 2. Normal LV systolic function, ejection fraction 60%. RECOMMENDATIONS Recommend imaging with MRI and/or CTA of the chest to assess for thoracic aortic aneurysm. Will also get a CT surgery consult for consideration of risks and benefits of CABG. Will also consider bypass in the right PDA given the 50% proximal stenosis as well. Otherwise recommend medical management of coronary disease and cardiac risk factor modification. The patient will also need a GI work-up prior to CABG given his recent GI bleed and anemia. MD BONNIE Todd/MOLLY /3:19 PM /10:29 AM
--- NOTE | 2017-03-13 11:02 | HHI.GIFU ---
GI Follow-up Note Consult Follow-up Subjective: Patient laying in bed comfortably. no bleeding seen Objective: PHYSICAL EXAMINATION: Vitals signs stable No fever CHEST: Chest is clear to auscultation and percussion. CARDIAC: Regular rate and rhythm with no murmur gallop or rubs. ABDOMEN: Soft, nondistended, nontender; no hepatosplenomegaly; bowel sounds are present in all four quadrants. EXTREMITIES: No edema. SKIN: no jaundice. DICTIONARY EDITOR: No focal deficits; alert and oriented times three. Available Data (labs, X- Rays, Procedures) : Hgb stable ASSESSMENT/PLAN: 1. OB + stools--prob an anorectal disease 2. Rectal bleeding-resolved 3. Severe CAD 4. Syncope 5. stable anemia PLAN: 1. with recent cardiac events (NV) and findings on cath would proceed with CABG and will have pt F/U as outpt for GI procedures once he is stable 2. Cont PPI It was a pleasure seeing Julio Short. Thank you for this consult. Entered by: Theo Holt MD Mar 13, 2017 11:02
--- NOTE | 2017-03-13 13:02 | HHI.PR ---
Subjective Remarks f/u for NSTEMI Patient has no complaints. Deny any chest pain, tightness of breathing, lightheadedness or dizziness. Patient's grandson is at the bedside. Objective Vitals Vital Signs Date Time Temp Pulse Resp B/P Pulse Ox O2 Delivery O2 Flow Rate FiO2 03/13/17 10:00 56 03/13/17 09:00 98.2 73 16 131/67 95 03/13/17 09:00 73 03/13/17 08:00 65 03/13/17 07:00 53 03/13/17 06:05 54 03/13/17 05:00 56 03/13/17 04:10 72 03/13/17 03:00 98.7 57 18 104/73 96 03/13/17 03:00 59 03/13/17 02:00 58 03/13/17 01:00 52 03/13/17 00:00 52 03/12/17 23:00 98.7 59 18 128/90 96 03/12/17 23:00 61 03/12/17 22:00 85 03/12/17 21:00 60 03/12/17 20:00 59 03/12/17 19:46 98.5 87 18 120/77 96 03/12/17 19:00 62 03/12/17 18:01 62 03/12/17 17:08 66 03/12/17 16:06 66 03/12/17 15:28 97.0 66 18 124/74 97 03/12/17 15:28 64 03/12/17 14:07 66 03/12/17 13:28 55 I/O 03/12/17 03/12/17 03/12/17 03/13/17 03/13/17 03/13/17 07:00 15:00 23:00 07:00 15:00 23:00 Intake Total 240 ml 0 ml 480 ml Output Total 475 ml 575 ml Balance -235 ml -575 ml 480 ml Intake Oral 240 ml 480 ml IV Total 0 ml Output Urine Total 475 ml 575 ml # Voids 4 Result Diagram: 03/12/17 0545 03/12/17 0545 Objective Remarks GENERAL: in NAD SKIN: Warm and dry. HEAD: Normocephalic. EYES: No scleral icterus. No injection or drainage. NECK: Supple, trachea midline. No JVD or lymphadenopathy. CARDIOVASCULAR: Regular rate and rhythm without murmurs, gallops, or rubs. RESPIRATORY: Breath sounds equal bilaterally. No accessory muscle use. GASTROINTESTINAL: Abdomen soft, non-tender, nondistended. MUSCULOSKELETAL: No cyanosis, or edema. BACK: Nontender without obvious deformity. No CVA tenderness. NEURO: AAO X 3. CN 2-12 intact. Motor and sensation grossly intact. Medications and IVs Current Medications Sodium Chloride (NS Flush) 2 ml UNSCH PRN IV FLUSH FLUSH AFTER USING IV ACCESS ; Start 03/10/17 at 20:45; Stop 03/11/17 at 15:51; Status DC Sodium Chloride (NS Flush) 2 ml BID IV FLUSH Last administered on 03/11/17 10: 18; Start 03/10/17 at 21:00; Stop 03/11/17 at 15:51; Status DC Naloxone HCl (Narcan Inj) 0.4 mg UNSCH PRN IV SEE LABEL COMMENTS; Start at 20:45 Pantoprazole Sodium (Protonix Inj) 40 mg Q12HR IV PUSH Last administered on 09:32; Start 03/10/17 at 21:00 Enoxaparin Sodium (Lovenox Inj) 70 mg Q12H SQ ; Start 03/11/17 at 02:00; Stop at 15:52; Status DC Aspirin (Ecotrin Ec) 81 mg DAILY PO Last administered on 03/13/17 09:32; Start 03/11/17 at 10:45 Metoprolol Tartrate (Lopressor) 12.5 mg Q12HR PO Last administered on 09:32; Start 03/11/17 at 10:45 Miscellaneous (Pill Splitter) 1 ea UNSCH PRN OTHER SEE LABEL COMMENTS Last administered on 03/11/17 12:17; Start 03/11/17 at 11:00 Atorvastatin Calcium 80 mg 80 mg HS PO Last administered on 03/12/17 21:04; Start 03/11/17 at 21:00 Heparin Sodium/ Sodium Chloride (Heparin-NS/Pf Inj) 500 ml @ As Directed STK- MED ONCE .ROUTE Last administered on 03/11/17 14:04; Start 03/11/17 at 14:04; Stop 03/11/17 at 14:05; Status DC Heparin Sodium (Porcine) (Heparin Inj) 10,000 units STK-MED ONCE .ROUTE Last administered on 03/11/17 14:51; Start 03/11/17 at 14:47; Stop 03/11/17 at 14:48 ; Status DC Adenosine (Adenoscan Inj) 90 mg STK-MED ONCE .ROUTE ; Start 03/11/17 at 14:51; Stop 03/11/17 at 14:52; Status DC Sodium Chloride (NS Flush) 2 ml UNSCH PRN IV FLUSH FLUSH AFTER USING IV ACCESS ; Start 03/11/17 at 15:30; Stop 03/12/17 at 16:44; Status DC Sodium Chloride (NS Flush) 2 ml BID IV FLUSH Last administered on 03/12/17 08: 24; Start 03/11/17 at 21:00; Stop 03/12/17 at 16:44; Status DC Miscellaneous Information 1 ONCE ONCE XX ; Start 03/11/17 at 15:30; Stop at 15:51; Status DC Gadodiamide (Omniscan Pf Inj) 30 ml STK-MED ONCE IV Last administered on 12:06; Start 03/12/17 at 12:06; Stop 03/12/17 at 12:07; Status DC Iohexol (OMNIPAQUE 350 INJ (Rewinder Operator)) 100 ml STK-MED ONCE OTHER ; Start at 13:25; Stop 03/12/17 at 13:25; Status DC Sodium Chloride (NS Flush) 2 ml BID IV FLUSH Last administered on 03/13/17 09: 32; Start 03/12/17 at 21:00 Sodium Chloride 2 ml 2 ml UNSCH PRN IV FLUSH FLUSH AFTER USING IV ACCESS; Start 03/12/17 at 16:30 Papaverine HCl 60 mg/Nitroglycerin 100 mcg/Diltiazem HCl 100 mg/Sodium Chloride 100.0 ml @ 0 mls/hr WOMEN'S STUDIES LECTURER IRRIGATION ; Start 03/12/17 at 16:30; Stop at 16:29 Cefazolin Sodium 500 mg/Sodium Chloride 505 ml @ 0 mls/hr WOMEN[employer]UDIES LECTURER IRRIGATION ; Start 03/12/17 at 16:30; Stop 03/19/17 at 16:29 Cefazolin Sodium/ Dextrose (Ancef 2 Gm Premix) 50 ml @ 150 mls/hr WOMEN'S STUDIES LECTURER IV ; Start 03/12/17 at 16:30; Stop 03/19/17 at 16:29 Metoprolol Tartrate (Lopressor) 12.5 mg WOMEN'S STUDIES LECTURER PO ; Start 03/12/17 at 16:30; Stop 03/19/17 at 16:29 Chlorhexidine Gluconate 1 applic 1 applic WOMEN'S STUDIES LECTURER TOPICAL ; Start 03/12/17 at 16:30; Stop 03/19/17 at 16:29 Insulin Human Regular/Sodium Chloride (NovoLIN R (IV INFUSION)/NS Inj) 101 ml @ 0 mls/hr WOMEN'S STUDIES LECTURER IV ; Start 03/12/17 at 16:30; Stop 03/19/17 at 16:29 Diphenhydramine HCl (Benadryl) 25 mg ONCE ONCE PO Last administered on t 21:04; Start 03/12/17 at 20:45; Stop 03/12/17 at 20:46; Status DC A/P Problem List: (1) Syncope ICD Code: R55 Status: Acute (2) Elevated troponin ICD Code: R74.8 Status: Acute Assessment and Plan Syncope -due to NSTEMI. -Status post cardiac catheterization done on 03/11/2017 showing multi-vascular disease. -Pending CABG NSTEMI - Patient is asymptomatic. He is on beta imani, aspirin, statin. -See treatment as above. Questionable hx of GI bleed a few weeks ago - No signs of GI bleed. Hemoglobin has been stable. -GI was consulted for clearance for cardiac bypass. GI stated patient can follow-up as outpatient for colonoscopy. DVT prophylaxis- SCD Discharge Planning pending CABG Problem Qualifiers (1) Syncope: Qualified Code: R55 - Syncope, unspecified syncope type Trang Casanova MD Mar 13, 2017 13:02
--- NOTE | 2017-03-13 14:40 | PD.CAR.PN ---
CVT Progress Note Subjective/Hospital Course: 71/ mal;e hx CAD prior PCI LAD, diagonal. Treated with xarelto and ASA post pci , recently developed GI Bleed / anticoagulation was stopped. He did not see GI as outpt / presented to ED syncopal episode + trop . Admitted with NSTEMI underwent cardia cath by Dr Dennis / 80% LAD, 80% Diagonal , 30% RCA . EF 60% . We were consulted for Coronary artery bypass grafting He was seen by GI/ Occult blood + stools , per GI probable anorectal disease 1. OB + stools--prob an anorectal disease, rectal bleed resolved , stable anemia , recommend to proceed with CABG PMH: HLP, CAD prior PCT, dementia on namenda, paroxysmal atrial fib 03/13 no chest pain or SOB await daughter to sign consent for surgery may need phone consent Objective: GENERAL: SKIN: Warm and dry. HEAD: Normocephalic. EYES: No scleral icterus. No injection or drainage. NECK: Supple, trachea midline. No JVD or lymphadenopathy. CARDIOVASCULAR: Regular rate and rhythm without murmurs, gallops, or rubs. RESPIRATORY: Breath sounds equal bilaterally. No accessory muscle use. GASTROINTESTINAL: Abdomen soft, non-tender, nondistended. MUSCULOSKELETAL: No cyanosis, or edema. BACK: Nontender without obvious deformity. No CVA tenderness. psych : short term memory problems Vital Signs Date Time Temp Pulse Resp B/P Pulse Ox O2 Delivery O2 Flow Rate FiO2 03/13/17 13:00 53 03/13/17 12:00 59 03/13/17 10:00 56 03/13/17 09:00 98.2 73 16 131/67 95 03/13/17 09:00 73 03/13/17 08:00 65 03/13/17 07:00 53 03/13/17 06:05 54 03/13/17 05:00 56 03/13/17 04:10 72 03/13/17 03:00 98.7 57 18 104/73 96 03/13/17 03:00 59 03/13/17 02:00 58 03/13/17 01:00 52 03/13/17 00:00 52 03/12/17 23:00 98.7 59 18 128/90 96 03/12/17 23:00 61 03/12/17 22:00 85 03/12/17 21:00 60 03/12/17 20:00 59 03/12/17 19:46 98.5 87 18 120/77 96 03/12/17 19:00 62 03/12/17 18:01 62 03/12/17 17:08 66 03/12/17 16:06 66 03/12/17 15:28 97.0 66 18 124/74 97 03/12/17 15:28 64 Result Diagram: 03/12/17 0545 03/12/17 0545 (1) Syncope (2) GI bleed (3) Elevated troponin (4) CAD (coronary artery disease) (5) NSTEMI (non-ST elevated myocardial infarction) Plan: scheduled for surgery on Thursday Problem Qualifiers (1) Syncope: Qualified Code: R55 - Syncope, unspecified syncope type (2) GI bleed: Qualified Code: K92.2 - Gastrointestinal hemorrhage, unspecified gastrointestinal hemorrhage type Jalyn Underwood Mar 13, 2017 14:40
--- NOTE | 2017-03-13 17:55 | MB ---
cc: BING HERZOG MD DATE OF CONSULTATION 03/13/17 12/22/2071 REASON FOR CONSULTATION Change in mental status. Change of mental status is unknown. HISTORY OF PRESENT ILLNESS This is a 71 year old man admitted on 12/08/2016. He was having lunch and apparently felt funny, dizzy. Apparently, he has been seen by cardiology for elevated troponin, coronary artery disease, non-ST elevated ND, also developed a possible GI bleed. PAST MEDICAL HISTORY 1. Heart disease with a stent placement, 2. Hyperlipidemia, 3. Hypothyroidism. PAST SURGICAL HISTORY 1. Cardiac cath with stent 2. Appendectomy MEDICATIONS Home, 1. Lipitor 2. Namenda XR 21 mg, 3. Synthroid 4. Omeprazole. ALLERGIES None reported. FAMILY HISTORY No significant family history. SOCIAL HISTORY She does not smoke, socially drinks beer every now and then, does not use any illicit drugs. PHYSICAL EXAMINATION VITAL SIGNS: Temperature is 98.2, pulse 73 down to 56 this afternoon, blood pressure 131/67. Satting at 95% room air. NECK: Supple. HEART: Regular. He is awake and alert, asking to go home. He knows that he is at [facility]. He knows it is February 2017. He is confused. He thought it was the or the . He was not sure of the day of the week. He knows the name of the president. He knows his date of and age. He does inform he lives alone. He has children. Speech is fluent. Pupils reactive. Face symmetrical. Tongue midline. Motor reno - no weakness. No drift. No leg lag. Cerebellar testing is normal. Toes are downgoing. DTRs are 1+. Gait I withheld at this time. LABORATORY DATA His labs are reviewed. Hemoglobin 10.5. Chemistries are reviewed as well. TSH was elevated at 11.3, troponin 0.08 0.32 and 1.60 respectively. Calcium yesterday was 7.4, hemoglobin A1c 5.4. Toxicology negative. IMAGING STUDIES He did have a carotid ultrasound that shows dense plaque on the left, calcified and mild arthrosclerotic disease in the right but no hemodynamic significant stenosis. CT of the brain was unremarkable. No DVT in his lower extremities. MEDICATIONS current meds here 1. Cephazolin 2. Metoprolol 3. Insulin home security professional if needed. 4. Lipitor 5. Baby aspirin. 6. Pantoprazole. IMPRESSION A 71-year-old man with possible syncope due to a non-ST elevated ND post cardiac cath showing multi-vascular disease pending the need of coronary artery bypass graft. He is currently on a beta imani, aspirin and statin. Some questionable GI bleed a few weeks ago, but there is no acute sign of bleeding. His hemoglobin has been stable. Outpatient colonoscopy will be performed per chart notes. Change in mental status. He does have baseline dementia. I have seen him in the office in the past. He is currently on Namenda XR 21 mg. Certainly, he can remain on that. I think certainly being out of his normal environment, his confusion can get worse. I am not sure when his bypass surgery is going to be performed, but patient could go home and have that as an outpatient. In any case at this point in time, neurologically no other testing is indicated. Continue current care per other consultants. Maintain him on his medication for his dementia and, should he get very agitated, a low-dose benzodiazepine may be considered. MD LAYLA Cifuentes/ /1:57 PM /5:38 PM
[2017-03-13 18:26] LABS: BLOOD, URINE NEG (NEG); COMMENT (UR) CULT NOT INDICATED; CULTURE IF INDICATED CULT NOT INDICATED; GLUCOSE,URINE NEG (NEG); HYALINE CAST, URINE 1 /lpf (RARE); KETONE, URINE NEG (NEG); MUCUS URINE FEW /lpf (OCC); NITRITE,URINE NEG (NEG); PH, URINE 5.5 (5.0-8.5); URINE COLOR YELLOW (YELLW/STRAW)
[2017-03-13] MEDS: ATORVASTATIN 80 MG TAB PO SCH (23:03)
[2017-03-14] VITALS (28 sets, daily range): BP systolic 95–136; BP diastolic 55–77; PULSE 52–92; RESP 16; TEMP 97.8–98.9; O2SAT 94–100
[2017-03-14 05:57] LABS: HEMATOCRIT 30.7 % (39.0-51.0); MEAN CELL VOLUME 92.8 FL (80.0-100.0); MEAN CORPUSCULAR HEMOGLOBIN 30.9 PG (27.0-34.0); MEAN CORPUSCULAR HGB CONC 33.3 % (32.0-36.0); PLATELET COUNT 243 TH/MM3 (150-450); REVIEW FLAG FINAL; WHITE BLOOD COUNT 4.7 TH/MM3 (4.0-11.0)
[2017-03-14 06:20] LABS: BICARBONATE 26.4 MEQ/L (21.0-32.0); POTASSIUM 3.7 MEQ/L (3.5-5.1)
[2017-03-14] MEDS: PANTOPRAZOLE SODIUM 40 MG VIAL IV PUSH SCH ×2 (09:45→21:24)
[2017-03-14] MEDS: SODIUM CHLORIDE 0.9% FLUSH 10 ML FLUSH IV FLUSH SCH ×2 (09:45→21:24)
[2017-03-14] MEDS: ASPIRIN EC 81 MG TABEC PO SCH (09:46)
[2017-03-14] MEDS: METOPROLOL TARTRATE 25 MG TAB PO SCH ×2 (09:46→21:21)
--- NOTE | 2017-03-14 10:44 | PD.CARD.PN ---
Subjective Subjective Remarks alert in nad Objective Vital Signs / I&O Vital Signs Date Time Temp Pulse Resp B/P Pulse Ox O2 Delivery O2 Flow Rate FiO2 03/14/17 10:00 71 03/14/17 09:00 63 03/14/17 09:00 97.8 63 16 115/75 100 03/14/17 08:00 61 03/14/17 07:00 57 03/14/17 06:00 63 03/14/17 05:50 98.6 55 16 101/57 100 03/14/17 05:00 56 03/14/17 04:00 52 03/14/17 03:00 61 03/14/17 02:00 52 03/14/17 01:33 98.9 76 16 116/72 97 03/14/17 01:00 56 03/14/17 00:00 72 03/13/17 23:00 61 03/13/17 22:00 78 03/13/17 21:00 70 03/13/17 20:13 98.9 58 16 124/79 98 03/13/17 20:00 58 03/13/17 19:00 61 03/13/17 18:00 58 03/13/17 17:00 70 03/13/17 16:00 56 03/13/17 15:00 97.9 56 16 124/69 100 03/13/17 15:00 56 03/13/17 14:00 55 03/13/17 13:00 53 03/13/17 12:00 59 03/13/17 11:00 71 03/13/17 11:00 97.9 71 16 108/70 93 I/O 03/13/17 03/13/17 03/13/17 03/14/17 03/14/17 03/14/17 07:00 15:00 23:00 07:00 15:00 23:00 Intake Total 480 ml 700 ml 360 ml Output Total 250 ml Balance 480 ml 700 ml 110 ml Intake Oral 480 ml 700 ml 360 ml IV Total 0 ml Output Urine Total 250 ml # Voids 4 3 1 # Bowel Movements 0 0 Laboratory GENERAL: SKIN: Warm and dry. HEAD: Normocephalic. EYES: No scleral icterus. No injection or drainage. NECK: Supple, trachea midline. No JVD or lymphadenopathy. CARDIOVASCULAR: Regular rate and rhythm without murmurs, gallops, or rubs. RESPIRATORY: Breath sounds equal bilaterally. No accessory muscle use. GASTROINTESTINAL: Abdomen soft, non-tender, nondistended. MUSCULOSKELETAL: No cyanosis, or edema. BACK: Nontender without obvious deformity. No CVA tenderness. Laboratory Tests Test 03/13/17 03/14/17 17:25 05:12 Urine Color YELLOW Urine Turbidity CLEAR Urine pH 5.5 Urine Specific [place] 1.021 Urine Protein NEG mg/dL Urine Glucose (UA) NEG mg/dL Urine Ketones NEG mg/dL Urine Occult Blood NEG Urine Nitrite NEG Urine Bilirubin NEG Urine Urobilinogen LESS THAN 2.0 MG/DL Urine Leukocyte Esterase NEG Urine WBC LESS THAN 1 /hpf Urine Hyaline Casts 1 /lpf Urine Mucus FEW /lpf Microscopic Urinalysis Comment CULT NOT INDICATED White Blood Count 4.7 TH/MM3 Red Blood Count 3.30 MIL/MM3 Hemoglobin 10.2 GM/DL Hematocrit 30.7 % Mean Corpuscular Volume 92.8 FL Mean Corpuscular Hemoglobin 30.9 PG Mean Corpuscular Hemoglobin 33.3 % Concent Red Cell Distribution Width 13.0 % Platelet Count 243 TH/MM3 Mean Platelet Volume 8.8 FL Sodium Level 141 MEQ/L Potassium Level 3.7 MEQ/L Chloride Level 108 MEQ/L Carbon Dioxide Level 26.4 MEQ/L Anion Gap 7 MEQ/L Blood Urea Nitrogen 24 MG/DL Creatinine 0.92 MG/DL Estimat Glomerular Filtration 81 ML/MIN Rate Random Glucose 83 MG/DL Calcium Level 8.3 MG/DL Assessment and Plan Problem List: (1) Syncope (2) GI bleed (3) Elevated troponin (4) CAD (coronary artery disease) (5) NSTEMI (non-ST elevated myocardial infarction) Assessment and Plan 1.) CAD - pre-op cabg, continue lipitor Problem Qualifiers (1) Syncope: Qualified Code: R55 - Syncope, unspecified syncope type (2) GI bleed: Qualified Code: K92.2 - Gastrointestinal hemorrhage, unspecified gastrointestinal hemorrhage type Nader Dennis MD Mar 14, 2017 10:44
--- NOTE | 2017-03-14 11:17 | HHI.PR ---
Subjective Remarks f/u for NSTEMI Patient has no complaints. Deny any chest pain, palpitation, shortness of breathing, lightheadedness or dizziness. Patient stated that he is ambulating. Objective Vitals Vital Signs Date Time Temp Pulse Resp B/P Pulse Ox O2 Delivery O2 Flow Rate FiO2 03/14/17 10:00 71 03/14/17 09:00 63 03/14/17 09:00 97.8 63 16 115/75 100 03/14/17 08:00 61 03/14/17 07:00 57 03/14/17 06:00 63 03/14/17 05:50 98.6 55 16 101/57 100 03/14/17 05:00 56 03/14/17 04:00 52 03/14/17 03:00 61 03/14/17 02:00 52 03/14/17 01:33 98.9 76 16 116/72 97 03/14/17 01:00 56 03/14/17 00:00 72 03/13/17 23:00 61 03/13/17 22:00 78 03/13/17 21:00 70 03/13/17 20:13 98.9 58 16 124/79 98 03/13/17 20:00 58 03/13/17 19:00 61 03/13/17 18:00 58 03/13/17 17:00 70 03/13/17 16:00 56 03/13/17 15:00 97.9 56 16 124/69 100 03/13/17 15:00 56 03/13/17 14:00 55 03/13/17 13:00 53 03/13/17 12:00 59 I/O 03/13/17 03/13/17 03/13/17 03/14/17 03/14/17 03/14/17 07:00 15:00 23:00 07:00 15:00 23:00 Intake Total 480 ml 700 ml 360 ml Output Total 250 ml Balance 480 ml 700 ml 110 ml Intake Oral 480 ml 700 ml 360 ml IV Total 0 ml Output Urine Total 250 ml # Voids 4 3 1 # Bowel Movements 0 0 Result Diagram: 03/14/1751103/14/1712 Objective Remarks GENERAL: in NAD SKIN: Warm and dry. HEAD: Normocephalic. EYES: No scleral icterus. No injection or drainage. NECK: Supple, trachea midline. No JVD or lymphadenopathy. CARDIOVASCULAR: Regular rate and rhythm without murmurs, gallops, or rubs. RESPIRATORY: Breath sounds equal bilaterally. No accessory muscle use. GASTROINTESTINAL: Abdomen soft, non-tender, nondistended. MUSCULOSKELETAL: No cyanosis, or edema. BACK: Nontender without obvious deformity. No CVA tenderness. NEURO: AAO X 3. CN 2-12 intact. Motor and sensation grossly intact. Medications and IVs Current Medications Sodium Chloride (NS Flush) 2 ml UNSCH PRN IV FLUSH FLUSH AFTER USING IV ACCESS ; Start 03/10/17 at 20:45; Stop 03/11/17 at 15:51; Status DC Sodium Chloride (NS Flush) 2 ml BID IV FLUSH Last administered on 03/11/17 10: 18; Start 03/10/17 at 21:00; Stop 03/11/17 at 15:51; Status DC Naloxone HCl (Narcan Inj) 0.4 mg UNSCH PRN IV SEE LABEL COMMENTS; Start at 20:45 Pantoprazole Sodium (Protonix Inj) 40 mg Q12HR IV PUSH Last administered on 09:45; Start 03/10/17 at 21:00 Enoxaparin Sodium (Lovenox Inj) 70 mg Q12H SQ ; Start 03/11/17 at 02:00; Stop at 15:52; Status DC Aspirin (Ecotrin Ec) 81 mg DAILY PO Last administered on 03/14/17 09:46; Start 03/11/17 at 10:45 Metoprolol Tartrate (Lopressor) 12.5 mg Q12HR PO Last administered on 09:46; Start 03/11/17 at 10:45 Miscellaneous (Pill Splitter) 1 ea UNSCH PRN OTHER SEE LABEL COMMENTS Last administered on 03/11/17 12:17; Start 03/11/17 at 11:00 Atorvastatin Calcium 80 mg 80 mg HS PO Last administered on 03/13/17 23:03; Start 03/11/17 at 21:00 Heparin Sodium/ Sodium Chloride (Heparin-NS/Pf Inj) 500 ml @ As Directed STK- MED ONCE .ROUTE Last administered on 03/11/17 14:04; Start 03/11/17 at 14:04; Stop 03/11/17 at 14:05; Status DC Heparin Sodium (Porcine) (Heparin Inj) 10,000 units STK-MED ONCE .ROUTE Last administered on 03/11/17 14:51; Start 03/11/17 at 14:47; Stop 03/11/17 at 14:48 ; Status DC Adenosine (Adenoscan Inj) 90 mg STK-MED ONCE .ROUTE ; Start 03/11/17 at 14:51; Stop 03/11/17 at 14:52; Status DC Sodium Chloride (NS Flush) 2 ml UNSCH PRN IV FLUSH FLUSH AFTER USING IV ACCESS ; Start 03/11/17 at 15:30; Stop 03/12/17 at 16:44; Status DC Sodium Chloride (NS Flush) 2 ml BID IV FLUSH Last administered on 03/12/17 08: 24; Start 03/11/17 at 21:00; Stop 03/12/17 at 16:44; Status DC Miscellaneous Information 1 ONCE ONCE XX ; Start 03/11/17 at 15:30; Stop at 15:51; Status DC Gadodiamide (Omniscan Pf Inj) 30 ml STK-MED ONCE IV Last administered on 12:06; Start 03/12/17 at 12:06; Stop 03/12/17 at 12:07; Status DC Iohexol (OMNIPAQUE 350 INJ (Fiber Optics Supervisor)) 100 ml STK-MED ONCE OTHER ; Start at 13:25; Stop 03/12/17 at 13:25; Status DC Sodium Chloride (NS Flush) 2 ml BID IV FLUSH Last administered on 03/14/17 09: 45; Start 03/12/17 at 21:00 Sodium Chloride 2 ml 2 ml UNSCH PRN IV FLUSH FLUSH AFTER USING IV ACCESS; Start 03/12/17 at 16:30 Papaverine HCl 60 mg/Nitroglycerin 100 mcg/Diltiazem HCl 100 mg/Sodium Chloride 100.0 ml @ 0 mls/hr MINE FOREMAN IRRIGATION ; Start 03/12/17 at 16:30; Stop at 16:29 Cefazolin Sodium 500 mg/Sodium Chloride 505 ml @ 0 mls/hr MINE FOREMAN IRRIGATION ; Start 03/12/17 at 16:30; Stop 03/19/17 at 16:29 Cefazolin Sodium/ Dextrose (Ancef 2 Gm Premix) 50 ml @ 150 mls/hr MINE FOREMAN IV ; Start 03/12/17 at 16:30; Stop 03/19/17 at 16:29 Metoprolol Tartrate (Lopressor) 12.5 mg MINE FOREMAN PO ; Start 03/12/17 at 16:30; Stop 03/19/17 at 16:29 Chlorhexidine Gluconate 1 applic 1 applic MINE FOREMAN TOPICAL ; Start 03/12/17 at 16:30; Stop 03/19/17 at 16:29 Insulin Human Regular/Sodium Chloride (NovoLIN R (IV INFUSION)/NS Inj) 101 ml @ 0 mls/hr MINE FOREMAN IV ; Start 03/12/17 at 16:30; Stop 03/19/17 at 16:29 Diphenhydramine HCl (Benadryl) 25 mg ONCE ONCE PO Last administered on t 21:04; Start 03/12/17 at 20:45; Stop 03/12/17 at 20:46; Status DC A/P Problem List: (1) Syncope ICD Code: R55 Status: Acute (2) Elevated troponin ICD Code: R74.8 Status: Acute Assessment and Plan Syncope -due to NSTEMI. -Status post cardiac catheterization done on 03/11/2017 showing multi-vascular disease. -Patient scheduled for CABG on Thursday. NSTEMI - Patient is asymptomatic. He is on beta imani, aspirin, statin. -See treatment as above. Questionable hx of GI bleed a few weeks ago - No signs of GI bleed. Hemoglobin has been stable. -GI was consulted for clearance for cardiac bypass. GI stated patient can follow-up as outpatient for colonoscopy. DVT prophylaxis- SCD Discharge Planning Patient scheduled for CABG on Thursday. Encourage ambulation. Problem Qualifiers (1) Syncope: Qualified Code: R55 - Syncope, unspecified syncope type Trang Casanova MD Mar 14, 2017 11:17
[2017-03-14] MEDS: ATORVASTATIN 80 MG TAB PO SCH (21:20)
[2017-03-15] VITALS (23 sets, daily range): BP systolic 95–118; BP diastolic 60–73; PULSE 52–160; RESP 16–20; TEMP 98.4–98.7; O2SAT 96–99
[2017-03-15] MEDS: PANTOPRAZOLE SODIUM 40 MG VIAL IV PUSH SCH ×2 (09:30→21:30)
[2017-03-15] MEDS: SODIUM CHLORIDE 0.9% FLUSH 10 ML FLUSH IV FLUSH SCH ×2 (09:30→21:30)
[2017-03-15] MEDS: ASPIRIN EC 81 MG TABEC PO SCH (09:30)
[2017-03-15] MEDS: METOPROLOL TARTRATE 25 MG TAB PO SCH ×2 (09:30→21:30)
--- NOTE | 2017-03-15 09:44 | PD.CAR.PN ---
CVT Progress Note Subjective/Hospital Course: 71/ mal;e hx CAD prior PCI LAD, diagonal. Treated with xarelto and ASA post pci , recently developed GI Bleed / anticoagulation was stopped. He did not see GI as outpt / presented to ED syncopal episode + trop . Admitted with NSTEMI underwent cardia cath by Dr Dennis / 80% LAD, 80% Diagonal , 30% RCA . EF 60% . We were consulted for Coronary artery bypass grafting He was seen by GI/ Occult blood + stools , per GI probable anorectal disease 1. OB + stools--prob an anorectal disease, rectal bleed resolved , stable anemia , recommend to proceed with CABG PMH: HLP, CAD prior PCT, dementia on [place], paroxysmal atrial fib 03/13 no chest pain or SOB await daughter to sign consent for surgery may need phone consent 03/15 CP free OR in am Objective: Vital Signs Date Time Temp Pulse Resp B/P Pulse Ox O2 Delivery O2 Flow Rate FiO2 03/15/17 08:00 98.4 70 20 118/70 97 03/15/17 06:00 60 03/15/17 05:26 98.4 64 16 106/69 98 03/15/17 05:12 160 03/15/17 05:00 55 03/15/17 04:00 56 03/15/17 03:00 59 03/15/17 02:00 54 03/15/17 01:00 55 03/15/17 00:00 55 03/14/17 23:48 98.3 62 16 131/77 98 03/14/17 23:00 71 03/14/17 22:00 56 03/14/17 21:00 58 03/14/17 20:00 56 03/14/17 19:30 98.3 65 16 136/76 99 03/14/17 19:00 67 03/14/17 18:00 55 03/14/17 17:00 56 03/14/17 16:00 60 03/14/17 15:00 98.6 85 16 95/55 94 03/14/17 14:00 71 03/14/17 13:00 92 03/14/17 12:00 68 03/14/17 11:00 98.3 65 16 113/70 95 03/14/17 10:00 71 Labs: Laboratory Tests Test 03/15/17 04:14 Blood Type A POSITIVE Antibody Screen NEGATIVE Crossmatch Leukocyte-Reduced Red Blood Cells Blood Bank Comment Result Diagram: 03/14/1712 03/14/17511 (1) Syncope (2) GI bleed (3) Elevated troponin (4) CAD (coronary artery disease) (5) NSTEMI (non-ST elevated myocardial infarction) Plan: scheduled for surgery on Thursday Problem Qualifiers (1) Syncope: Qualified Code: R55 - Syncope, unspecified syncope type (2) GI bleed: Qualified Code: K92.2 - Gastrointestinal hemorrhage, unspecified gastrointestinal hemorrhage type Lourdes Dillard MD Mar 15, 2017 09:43
--- NOTE | 2017-03-15 10:46 | HHI.PR ---
Subjective Remarks f/u for NSTEMI patient stated that he is ambulating down the hallways with no difficulty. he denied any CP, SOB, palpitations, and lightheadedness and dizziness. Patient has no concerns. Patient's nephew is at the bedside. Objective Vitals Vital Signs Date Time Temp Pulse Resp B/P Pulse Ox O2 Delivery O2 Flow Rate FiO2 03/15/17 10:00 66 03/15/17 09:00 76 03/15/17 08:00 64 03/15/17 08:00 98.4 70 20 118/70 97 03/15/17 07:00 63 03/15/17 06:00 60 03/15/17 05:26 98.4 64 16 106/69 98 03/15/17 05:12 160 03/15/17 05:00 55 03/15/17 04:00 56 03/15/17 03:00 59 03/15/17 02:00 54 03/15/17 01:00 55 03/15/17 00:00 55 03/14/17 23:48 98.3 62 16 131/77 98 03/14/17 23:00 71 03/14/17 22:00 56 03/14/17 21:00 58 03/14/17 20:00 56 03/14/17 19:30 98.3 65 16 136/76 99 03/14/17 19:00 67 03/14/17 18:00 55 03/14/17 17:00 56 03/14/17 16:00 60 03/14/17 15:00 98.6 85 16 95/55 94 03/14/17 14:00 71 03/14/17 13:00 92 03/14/17 12:00 68 03/14/17 11:00 98.3 65 16 113/70 95 I/O 03/14/17 03/14/17 03/14/17 03/15/17 03/15/17 03/15/17 07:00 15:00 23:00 07:00 15:00 23:00 Intake Total 360 ml 800 ml 360 ml Output Total 250 ml 520 ml Balance 110 ml 800 ml -160 ml Intake Oral 360 ml 800 ml 360 ml IV Total 0 ml 0 ml Output Urine Total 250 ml 520 ml # Voids 1 4 # Bowel Movements 0 0 0 Result Diagram: 03/14/17 0512 03/14/17 0512 Objective Remarks GENERAL: in NAD SKIN: Warm and dry. HEAD: Normocephalic. EYES: No scleral icterus. No injection or drainage. NECK: Supple, trachea midline. No JVD or lymphadenopathy. CARDIOVASCULAR: Regular rate and rhythm without murmurs, gallops, or rubs. RESPIRATORY: Breath sounds equal bilaterally. No accessory muscle use. GASTROINTESTINAL: Abdomen soft, non-tender, nondistended. MUSCULOSKELETAL: No cyanosis, or edema. BACK: Nontender without obvious deformity. No CVA tenderness. NEURO: AAO X 3. CN 2-12 intact. Motor and sensation grossly intact. Medications and IVs Current Medications Sodium Chloride (NS Flush) 2 ml UNSCH PRN IV FLUSH FLUSH AFTER USING IV ACCESS ; Start 03/10/17 at 20:45; Stop 03/11/17 at 15:51; Status DC Sodium Chloride (NS Flush) 2 ml BID IV FLUSH Last administered on 03/11/17 10: 18; Start 03/10/17 at 21:00; Stop 03/11/17 at 15:51; Status DC Naloxone HCl (Narcan Inj) 0.4 mg UNSCH PRN IV SEE LABEL COMMENTS; Start at 20:45 Pantoprazole Sodium (Protonix Inj) 40 mg Q12HR IV PUSH Last administered on 09:30; Start 03/10/17 at 21:00 Enoxaparin Sodium (Lovenox Inj) 70 mg Q12H SQ ; Start 03/11/17 at 02:00; Stop at 15:52; Status DC Aspirin (Ecotrin Ec) 81 mg DAILY PO Last administered on 03/15/17 09:30; Start 03/11/17 at 10:45 Metoprolol Tartrate (Lopressor) 12.5 mg Q12HR PO Last administered on 09:30; Start 03/11/17 at 10:45 Miscellaneous (Pill Splitter) 1 ea UNSCH PRN OTHER SEE LABEL COMMENTS Last administered on 03/11/17 12:17; Start 03/11/17 at 11:00 Atorvastatin Calcium 80 mg 80 mg HS PO Last administered on 03/14/17 21:20; Start 03/11/17 at 21:00 Heparin Sodium/ Sodium Chloride (Heparin-NS/Pf Inj) 500 ml @ As Directed STK- MED ONCE .ROUTE Last administered on 03/11/17 14:04; Start 03/11/17 at 14:04; Stop 03/11/17 at 14:05; Status DC Heparin Sodium (Porcine) (Heparin Inj) 10,000 units STK-MED ONCE .ROUTE Last administered on 03/11/17 14:51; Start 03/11/17 at 14:47; Stop 03/11/17 at 14:48 ; Status DC Adenosine (Adenoscan Inj) 90 mg STK-MED ONCE .ROUTE ; Start 03/11/17 at 14:51; Stop 03/11/17 at 14:52; Status DC Sodium Chloride (NS Flush) 2 ml UNSCH PRN IV FLUSH FLUSH AFTER USING IV ACCESS ; Start 03/11/17 at 15:30; Stop 03/12/17 at 16:44; Status DC Sodium Chloride (NS Flush) 2 ml BID IV FLUSH Last administered on 03/12/17 08: 24; Start 03/11/17 at 21:00; Stop 03/12/17 at 16:44; Status DC Miscellaneous Information 1 ONCE ONCE XX ; Start 03/11/17 at 15:30; Stop at 15:51; Status DC Gadodiamide (Omniscan Pf Inj) 30 ml STK-MED ONCE IV Last administered on 12:06; Start 03/12/17 at 12:06; Stop 03/12/17 at 12:07; Status DC Iohexol (OMNIPAQUE 350 INJ (Digital Marketing Executive)) 100 ml STK-MED ONCE OTHER ; Start at 13:25; Stop 03/12/17 at 13:25; Status DC Sodium Chloride (NS Flush) 2 ml BID IV FLUSH Last administered on 03/15/17 09: 30; Start 03/12/17 at 21:00 Sodium Chloride 2 ml 2 ml UNSCH PRN IV FLUSH FLUSH AFTER USING IV ACCESS; Start 03/12/17 at 16:30 Papaverine HCl 60 mg/Nitroglycerin 100 mcg/Diltiazem HCl 100 mg/Sodium Chloride 100.0 ml @ 0 mls/hr TURBOGENERATOR OPERATOR IRRIGATION ; Start 03/12/17 at 16:30; Stop at 16:29 Cefazolin Sodium 500 mg/Sodium Chloride 505 ml @ 0 mls/hr TURBOGENERATOR OPERATOR IRRIGATION ; Start 03/12/17 at 16:30; Stop 03/19/17 at 16:29 Cefazolin Sodium/ Dextrose (Ancef 2 Gm Premix) 50 ml @ 150 mls/hr TURBOGENERATOR OPERATOR IV ; Start 03/12/17 at 16:30; Stop 03/19/17 at 16:29 Metoprolol Tartrate (Lopressor) 12.5 mg TURBOGENERATOR OPERATOR PO ; Start 03/12/17 at 16:30; Stop 03/19/17 at 16:29 Chlorhexidine Gluconate 1 applic 1 applic TURBOGENERATOR OPERATOR TOPICAL ; Start 03/12/17 at 16:30; Stop 03/19/17 at 16:29 Insulin Human Regular/Sodium Chloride (NovoLIN R (IV INFUSION)/NS Inj) 101 ml @ 0 mls/hr TURBOGENERATOR OPERATOR IV ; Start 03/12/17 at 16:30; Stop 03/19/17 at 16:29 Diphenhydramine HCl (Benadryl) 25 mg ONCE ONCE PO Last administered on t 21:04; Start 03/12/17 at 20:45; Stop 03/12/17 at 20:46; Status DC A/P Problem List: (1) Syncope ICD Code: R55 Status: Acute (2) Elevated troponin ICD Code: R74.8 Status: Acute Assessment and Plan Syncope -due to NSTEMI. -Status post cardiac catheterization done on 03/11/2017 showing multi-vascular disease. -Patient scheduled for CABG tomorrow. NSTEMI - Patient is asymptomatic. He is on beta imani, aspirin, statin. -See treatment as above. Questionable hx of GI bleed a few weeks ago - No signs of GI bleed. Hemoglobin has been stable. -GI was consulted for clearance for cardiac bypass. GI stated patient can follow-up as outpatient for colonoscopy. DVT prophylaxis- SCD Discharge Planning Patient schedule for CABG tomorrow. Problem Qualifiers (1) Syncope: Qualified Code: R55 - Syncope, unspecified syncope type Trang Casanova MD Mar 15, 2017 10:46
--- NOTE | 2017-03-15 12:04 | HHI.GIFU ---
GI Follow-up Note Consult Follow-up Subjective: Patient laying in bed comfortably. No bleeding seen Objective: PHYSICAL EXAMINATION: Vitals signs stable No fever CHEST: Chest is clear to auscultation and percussion. ABDOMEN: Soft, nondistended, nontender; no hepatosplenomegaly; bowel sounds are present in all four quadrants. EXTREMITIES: No clubbing, cyanosis, or edema. SKIN: Normal; no rash; no jaundice. Available Data (labs, X- Rays, [id number]) : hgb stable ASSESSMENT/PLAN: 1. OB + stools--prob an anorectal disease. no further bleeding seen 2. Rectal bleeding- 3. Severe CAD 4. Syncope 5. stable anemia PLAN: 1. with recent cardiac events (OK) and findings on cath would proceed with CABG and will have pt F/U as outpt for GI procedures once he is stable 2. Cont PPI 3. d/w with family/pt It was a pleasure seeing Julio Short. Thank you for this consult. Entered by: Theo Hlot MD Mar 15, 2017 12:04
--- NOTE | 2017-03-15 15:47 | PD.CARD.PN ---
Subjective Subjective Remarks alert in nad Objective Vital Signs / I&O Vital Signs Date Time Temp Pulse Resp B/P Pulse Ox O2 Delivery O2 Flow Rate FiO2 03/15/17 15:00 66 03/15/17 15:00 98.6 76 20 95/60 99 03/15/17 14:00 71 03/15/17 13:00 73 03/15/17 12:00 53 03/15/17 11:00 98.5 64 20 110/73 96 03/15/17 11:00 52 03/15/17 10:00 66 03/15/17 09:00 76 03/15/17 08:00 64 03/15/17 08:00 98.4 70 20 118/70 97 03/15/17 07:00 63 03/15/17 06:00 60 03/15/17 05:26 98.4 64 16 106/69 98 03/15/17 05:12 160 03/15/17 05:00 55 03/15/17 04:00 56 03/15/17 03:00 59 03/15/17 02:00 54 03/15/17 01:00 55 03/15/17 00:00 55 03/14/17 23:48 98.3 62 16 131/77 98 03/14/17 23:00 71 03/14/17 22:00 56 03/14/17 21:00 58 03/14/17 20:00 56 03/14/17 19:30 98.3 65 16 136/76 99 03/14/17 19:00 67 03/14/17 18:00 55 03/14/17 17:00 56 03/14/17 16:00 60 I/O 03/14/17 03/14/17 03/14/17 03/15/17 03/15/17 03/15/17 07:00 15:00 23:00 07:00 15:00 23:00 Intake Total 360 ml 800 ml 360 ml Output Total 250 ml 520 ml Balance 110 ml 800 ml -160 ml Intake Oral 360 ml 800 ml 360 ml IV Total 0 ml 0 ml Output Urine Total 250 ml 520 ml # Voids 1 4 # Bowel Movements 0 0 0 Laboratory GENERAL: SKIN: Warm and dry. HEAD: Normocephalic. EYES: No scleral icterus. No injection or drainage. NECK: Supple, trachea midline. No JVD or lymphadenopathy. CARDIOVASCULAR: Regular rate and rhythm without murmurs, gallops, or rubs. RESPIRATORY: Breath sounds equal bilaterally. No accessory muscle use. GASTROINTESTINAL: Abdomen soft, non-tender, nondistended. MUSCULOSKELETAL: No cyanosis, or edema. BACK: Nontender without obvious deformity. No CVA tenderness. Laboratory Tests Test 03/15/17 04:14 Blood Type A POSITIVE Antibody Screen NEGATIVE Crossmatch Leukocyte-Reduced Red Blood Cells Blood Bank Comment Assessment and Plan Problem List: (1) Syncope (2) GI bleed (3) Elevated troponin (4) CAD (coronary artery disease) (5) NSTEMI (non-ST elevated myocardial infarction) Assessment and Plan 1.) CAD - pre-op cabg, continue lipitor, asa, lopressor Problem Qualifiers (1) Syncope: Qualified Code: R55 - Syncope, unspecified syncope type (2) GI bleed: Qualified Code: K92.2 - Gastrointestinal hemorrhage, unspecified gastrointestinal hemorrhage type Nader Dennis MD Mar 15, 2017 15:47
[2017-03-15] MEDS: ATORVASTATIN 80 MG TAB PO SCH (21:30)
[2017-03-16] VITALS (10 sets, daily range): BP systolic 87–115; BP diastolic 49–67; PULSE 47–83; RESP 12–20; TEMP 97.6–99; O2SAT 93–98
[2017-03-16] MEDS ORDERED: PHENYLEPHRINE HCL 10 MG/ML VIAL IV ONE (05:00)
[2017-03-16] MEDS ORDERED: CALCIUM CHLORIDE 10% SOLN 1 GRAM/10 ML SYR IV ONE (05:00)
[2017-03-16] MEDS ORDERED: VECURONIUM BROMIDE 10 MG VIAL IV ONE (05:00)
[2017-03-16] MEDS ORDERED: SODIUM BICARBONATE 8.4% INJ 50 MEQ/50 ML SYR IV ONE (05:00)
[2017-03-16] MEDS ORDERED: DEXMEDETOMIDINE INJ 50 ML IV ONE (05:00)
[2017-03-16] MEDS ORDERED: HEPARIN SODIUM - SQ 10,000 UNITS/ML VIAL SQ ONE (05:00)
[2017-03-16] MEDS ORDERED: NITROGLYCERIN-DEXTROSE INJ 250 ML IV ONE (05:00)
[2017-03-16] MEDS ORDERED: MAGNESIUM SULFATE 1000 MG/2 ML VIAL (PED) IV ONE (05:00)
[2017-03-16] MEDS ORDERED: LIDOCAINE HCL 1% 30 ML VIAL OTHER ONE (05:00)
[2017-03-16] MEDS ORDERED: ceFAZolin 2 GM PREMIX 50 ML ONE (06:27)
[2017-03-16] MEDS ORDERED: VANCOMYCIN HCL 1000 MG VIAL ONE (06:27)
[2017-03-16] MEDS ORDERED: HEPARIN SODIUM - SQ 10,000 UNITS/ML VIAL ONE (06:28)
[2017-03-16] MEDS ORDERED: fentaNYL CITRATE 1000 MCG/20 ML VIAL ONE (07:01)
[2017-03-16] MEDS ORDERED: MIDAZOLAM HCL 5 MG/5 ML VIAL ONE (07:01)
[2017-03-16] MEDS: SODIUM CHLORIDE 0.9% FLUSH 10 ML FLUSH IV FLUSH SCH ×2 (09:00→20:17)
[2017-03-16] MEDS: METOPROLOL TARTRATE 25 MG TAB PO SCH ×2 (09:00→20:17)
[2017-03-16] MEDS: PANTOPRAZOLE SODIUM 40 MG VIAL IV PUSH SCH ×2 (09:00→20:17)
[2017-03-16] MEDS ORDERED: ONDANSETRON HCL 4 MG/2 ML VIAL IV PUSH PRN (11:00)
[2017-03-16] MEDS ORDERED: METOPROLOL TARTRATE 5 MG/5 ML VIAL IV PUSH PRN (11:00)
[2017-03-16] MEDS ORDERED: CALCIUM CHLORIDE INJ 1 GM in SODIUM CHLORIDE 0.9% INJ 100 ML IV PRN (11:00)
[2017-03-16] MEDS ORDERED: POTASSIUM CHLOR 20 MEQ PREMIX 100 ML IV PRN ×3 (11:00)
[2017-03-16] MEDS ORDERED: DEXMEDETOMIDINE INJ 200 MCG in SODIUM CHLORIDE 0.9% INJ 50 ML IV SCH (11:00)
[2017-03-16] MEDS ORDERED: CALCIUM CHLORIDE 10% 1 GRAM/10 ML VIAL IV PRN (11:00)
[2017-03-16] MEDS ORDERED: POTASSIUM CHLORIDE 20 MEQ CONTROLLED RELEASE TAB PO PRN ×2 (11:00)
[2017-03-16] MEDS ORDERED: RESP: ALBUTEROL 2.5 MG/IPRATROPIUM 0.5 MG NEB (PRN) NEB (11:00)
[2017-03-16] MEDS ORDERED: DEXTROSE 50% IN WATER 50 ML VIAL(D50) IV PUSH PRN (11:00)
[2017-03-16] MEDS ORDERED: SODIUM CHLORIDE 0.9% FLUSH 10 ML FLUSH IV FLUSH PRN (11:00)
[2017-03-16] MEDS ORDERED: hydrALAZINE HCL 20 MG/ML VIAL IV PRN (11:00)
[2017-03-16] MEDS ORDERED: ACETAMINOPHEN 650 MG SUPP RECTAL PRN (11:00)
[2017-03-16] MEDS ORDERED: MORPHINE SULFATE 4 MG/ML INJ IV PRN (11:00)
[2017-03-16] MEDS ORDERED: NITROGLYCERIN-DEXTROSE INJ 250 ML IV SCH (11:00)
[2017-03-16] MEDS ORDERED: MEPERIDINE HCL 25 MG/ML VIAL IV PRN (11:00)
[2017-03-16] MEDS ORDERED: DOPamine INJ PREMIX 500 ML IV SCH (11:00)
[2017-03-16] MEDS ORDERED: MAGNESIUM SULFATE INJ 2 GM in SODIUM CHLORIDE 0.9% INJ 100 ML IV PRN ×4 (11:00)
[2017-03-16] MEDS ORDERED: RESP: RACEPINEPHRINE 2.25% 0.5 ML NEB NEB PRN (11:00)
[2017-03-16] MEDS ORDERED: CLEVIDIPINE INJ 50 ML IV SCH (11:00)
[2017-03-16] MEDS ORDERED: Post-op Orders (for Pharmacy) MISC OTHER ONE (11:00)
[2017-03-16] MEDS ORDERED: ACETAMINOPHEN 325 MG TAB PO PRN (11:00)
[2017-03-16] MEDS ORDERED: DOBUTamine PREMIX DRIP 250 ML IV SCH (11:30)
[2017-03-16] MEDS ORDERED: PHENYLEPHRINE INJ 40 MG in DEXTROSE 5% IN WATE 500 ML INJ 496 ML IV SCH ×2 (12:00)
[2017-03-16] MEDS ORDERED: EPINEPHrine (1:1000) INJ 4 MG in DEXTROSE 5% IN WATER INJ 246 ML IV SCH ×2 (12:00)
[2017-03-16] MEDS ORDERED: INSULIN REGULAR (IV INFUSION) 100 UNITS in SODIUM CHLORIDE 0.9% INJ 99 ML IV SCH (12:00)
--- NOTE | 2017-03-16 12:06 | RADRPT ---
EXAM DATE/TIME: 03/16/2017 11:38 [facility] COMPARISON: CHEST SINGLE AP, March 10, 2017, 16:17. INDICATIONS : Post CABG. MEDICAL HISTORY : None. SURGICAL HISTORY : None. ENCOUNTER: Initial ACUITY: 1 day PAIN SCORE: Non-responsive. LOCATION: Bilateral chest FINDINGS: The endotracheal tube, chest tube mediastinal drain are in good position. There is introducer sheath in the right jugular. There is a nasogastric tube present. The heart is enlarged. The patient is post median sternotomy. There are old, calcified hilar nodes on the left. There are minimal atelectatic changes in the left lower lobe. CONCLUSION: 1. Stable postoperative chest. Migue Coleman MD on March 16, 2017 at 12:02 Board Certified Radiologist. This report was verified electronically.
--- NOTE | 2017-03-16 13:03 | HHI.PR ---
Subjective Remarks Follow-up for CABG Patient just got other OR. His nurse and respiratory therapist at the bedside. Patient is on the mechanical ventilator. Patient is following commands. Otherwise per nurse no other complaints or needs. Objective Vitals Vital Signs Date Time Temp Pulse Resp B/P Pulse Ox O2 Delivery O2 Flow Rate FiO2 03/16/17 12:40 93 Nasal Cannula 6 03/16/17 12:23 62 03/16/17 12:23 97.6 62 15 106/51 97 102/64 03/16/17 11:31 98 60 03/16/17 07:00 98.3 61 16 111/66 97 03/16/17 07:00 61 03/16/17 05:50 98.7 47 12 111/66 97 03/16/17 03:00 49 03/15/17 23:00 68 03/15/17 19:00 98.7 56 16 116/72 97 03/15/17 19:00 54 03/15/17 18:00 76 03/15/17 17:00 65 03/15/17 16:00 69 03/15/17 15:00 66 03/15/17 15:00 98.6 76 20 95/60 99 03/15/17 14:00 71 I/O 03/15/17 03/15/17 03/15/17 03/16/17 03/16/17 03/16/17 07:00 15:00 23:00 07:00 15:00 23:00 Intake Total 360 ml 680 ml 240 ml Output Total 520 ml 600 ml 500 ml Balance -160 ml 80 ml -260 ml Intake Oral 360 ml 680 ml 240 ml IV Total 0 ml 0 ml Output Urine Total 520 ml 600 ml 500 ml # Voids 2 2 # Bowel Movements 0 0 1 Result Diagram: 03/14/17 0512 03/14/17 0512 Imaging Last Impressions Chest X-Ray 03/16/17 0000 Signed Impressions: Service Date/Time: Thursday, March 16, 2017 11:38 - CONCLUSION: 1. Stable postoperative chest. Migue Coleman MD Lower Extremity Ultrasound 03/12/17 0000 Signed Impressions: Service Date/Time: February 14:55 - CONCLUSION: 1. Vein mapping as above. 2. No DVT identified. Migue Coleman MD Chest Magnetic Resonance Angiograph 03/12/17 0000 Signed Impressions: Service Date/Time: February 11:38 - CONCLUSION: The aortic root, ascending aorta, arch and descending thoracic aorta are normal in caliber. Migue Coleman MD Carotid Artery Ultrasound 03/12/17 0000 Signed Impressions: Service Date/Time: February 14:30 - CONCLUSION: 1. Densely calcified atherosclerotic plaque on the left. There is mild atherosclerotic plaquing on the right. No hemodynamically significant carotid artery stenosis evident by velocity indices. Migue Coleman MD Head CT 03/10/17 1605 Signed Impressions: Service Date/Time: Friday, March 10, 2017 16:35 - CONCLUSION: 1. Senescent changes. 2. No acute intracranial abnormality. Chay Tobias MD Objective Remarks GENERAL: in NAD. Patient is intubated and is following commands. SKIN: Wound VAC in place midchest. CARDIOVASCULAR: Regular rate and rhythm without murmurs, gallops, or rubs. RESPIRATORY: Breath sounds equal bilaterally. No accessory muscle use. GASTROINTESTINAL: Abdomen soft, non-tender, nondistended. Medications and IVs Current Medications Sodium Chloride (NS Flush) 2 ml UNSCH PRN IV FLUSH FLUSH AFTER USING IV ACCESS ; Start 03/10/17 at 20:45; Stop 03/11/17 at 15:51; Status DC Sodium Chloride (NS Flush) 2 ml BID IV FLUSH Last administered on 03/11/17 10: 18; Start 03/10/17 at 21:00; Stop 03/11/17 at 15:51; Status DC Naloxone HCl (Narcan Inj) 0.4 mg UNSCH PRN IV SEE LABEL COMMENTS; Start at 20:45 Pantoprazole Sodium (Protonix Inj) 40 mg Q12HR IV PUSH Last administered on 21:30; Start 03/10/17 at 21:00 Enoxaparin Sodium (Lovenox Inj) 70 mg Q12H SQ ; Start 03/11/17 at 02:00; Stop at 15:52; Status DC Aspirin (Ecotrin Ec) 81 mg DAILY PO Last administered on 03/15/17 09:30; Start 03/11/17 at 10:45; Stop 03/16/17 at 11:31; Status DC Metoprolol Tartrate (Lopressor) 12.5 mg Q12HR PO Last administered on 21:30; Start 03/11/17 at 10:45 Miscellaneous (Pill Splitter) 1 ea UNSCH PRN OTHER SEE LABEL COMMENTS Last administered on 03/11/17 12:17; Start 03/11/17 at 11:00 Atorvastatin Calcium 80 mg 80 mg HS PO Last administered on 03/15/17 21:30; Start 03/11/17 at 21:00 Heparin Sodium/ Sodium Chloride (Heparin-NS/Pf Inj) 500 ml @ As Directed STK- MED ONCE .ROUTE Last administered on 03/11/17 14:04; Start 03/11/17 at 14:04; Stop 03/11/17 at 14:05; Status DC Heparin Sodium (Porcine) (Heparin Inj) 10,000 units STK-MED ONCE .ROUTE Last administered on 03/11/17 14:51; Start 03/11/17 at 14:47; Stop 03/11/17 at 14:48 ; Status DC Adenosine (Adenoscan Inj) 90 mg STK-MED ONCE .ROUTE ; Start 03/11/17 at 14:51; Stop 03/11/17 at 14:52; Status DC Sodium Chloride (NS Flush) 2 ml UNSCH PRN IV FLUSH FLUSH AFTER USING IV ACCESS ; Start 03/11/17 at 15:30; Stop 03/12/17 at 16:44; Status DC Sodium Chloride (NS Flush) 2 ml BID IV FLUSH Last administered on 03/12/17 08: 24; Start 03/11/17 at 21:00; Stop 03/12/17 at 16:44; Status DC Miscellaneous Information 1 ONCE ONCE XX ; Start 03/11/17 at 15:30; Stop at 15:51; Status DC Gadodiamide (Omniscan Pf Inj) 30 ml STK-MED ONCE IV Last administered on 12:06; Start 03/12/17 at 12:06; Stop 03/12/17 at 12:07; Status DC Iohexol (OMNIPAQUE 350 INJ (Scientific Editor)) 100 ml STK-MED ONCE OTHER ; Start at 13:25; Stop 03/12/17 at 13:25; Status DC Sodium Chloride (NS Flush) 2 ml BID IV FLUSH Last administered on 03/15/17 21: 30; Start 03/12/17 at 21:00 Sodium Chloride 2 ml 2 ml UNSCH PRN IV FLUSH FLUSH AFTER USING IV ACCESS; Start 03/12/17 at 16:30 Papaverine HCl 60 mg/Nitroglycerin 100 mcg/Diltiazem HCl 100 mg/Sodium Chloride 100.0 ml @ 0 mls/hr COIN MACHINE COLLECTOR IRRIGATION Last administered on 03/16/17 08:47; Start 03/12/17 at 16:30; Stop 03/19/17 at 16:29 Cefazolin Sodium 500 mg/Sodium Chloride 505 ml @ 0 mls/hr COIN MACHINE COLLECTOR IRRIGATION Last administered on 03/16/17 08:47; Start 03/12/17 at 16:30; Stop 03/19/17 at 16:29 Cefazolin Sodium/ Dextrose (Ancef 2 Gm Premix) 50 ml @ 150 mls/hr COIN MACHINE COLLECTOR IV Last administered on 03/16/17 07:40; Start 03/12/17 at 16:30; Stop 03/19/17 at 16:29 Metoprolol Tartrate (Lopressor) 12.5 mg COIN MACHINE COLLECTOR PO ; Start 03/12/17 at 16:30; Stop 03/19/17 at 16:29 Chlorhexidine Gluconate 1 applic 1 applic COIN MACHINE COLLECTOR TOPICAL Last administered on 03/15/17 22:48; Start 03/12/17 at 16:30; Stop 03/19/17 at 16:29 Insulin Human Regular/Sodium Chloride (NovoLIN R (IV INFUSION)/NS Inj) 101 ml @ 0 mls/hr COIN MACHINE COLLECTOR IV ; Start 03/12/17 at 16:30; Stop 03/19/17 at 16:29 Diphenhydramine HCl (Benadryl) 25 mg ONCE ONCE PO Last administered on 21:04; Start 03/12/17 at 20:45; Stop 03/12/17 at 20:46; Status DC Vancomycin HCl 3000 mg 3,000 mg STK-MED ONCE .ROUTE Last administered on 08:48; Start 03/16/17 at 06:27; Stop 03/16/17 at 06:28; Status DC Cefazolin Sodium/ Dextrose (Ancef 2 Gm Premix) 50 ml @ As Directed STK-MED ONCE .ROUTE ; Start 03/16/17 at 06:27; Stop 03/16/17 at 06:28; Status DC Heparin Sodium (Porcine) (Heparin Inj) 40,000 units STK-MED ONCE .ROUTE Last administered on 03/16/17t 08:47; Start 03/16/17 at 06:28; Stop 03/16/17 at 06:29 ; Status DC Midazolam HCl (Versed Inj) 10 mg STK-MED ONCE .ROUTE ; Start 03/16/17 at 07:01; Stop 03/16/17 at 07:02; Status DC Fentanyl Citrate (fentaNYL INJ) 1,000 mcg STK-MED ONCE .ROUTE ; Start 03/16/17 at 07:01; Stop 03/16/17 at 07:02; Status DC Sodium Chloride (NS Flush) 2 ml BID IV FLUSH ; Start 03/16/17 at 21:00; Status Cancel Sodium Chloride 2 ml 2 ml UNSCH PRN IV FLUSH FLUSH AFTER USING IV ACCESS; Start 03/16/17 at 11:00; Status Cancel Dexmedetomidine HCl 200 mcg/ Sodium Chloride 52 ml @ 0 mls/hr TITRATE IV ; Start 03/16/17 at 11:00; Status UNV Nitroglycerin/ Dextrose 250 ml @ 0 mls/hr TITRATE IV ; Start 03/16/17 at 11:00 Dobutamine HCl/ Dextrose 250 ml @ 10.995 mls/ hr [id number] IV ; Start 03/16/17 at 11:30 Dopamine HCl/ Dextrose 500 ml @ 0 mls/hr TITRATE IV ; Start 03/16/17 at 11:00 Epinephrine HCl 4 mg/Dextrose 250 ml @ 0 mls/hr TITRATE IV ; Start 03/16/17 at 12:00 Phenylephrine HCl 40 mg/Dextrose 500 ml @ 0 mls/hr TITRATE IV ; Start 03/16/17 at 12:00 Clevidipine (Cleviprex Inj) 50 ml @ 0 mls/hr TITRATE IV ; Start 03/16/17 at 11: 00 Albumin Human 12.5 gm 12.5 gm UNSCH PRN IV SEE LABEL COMMENTS; Start 03/16/17 at 11:00 Lactated Ringer's (Lr 1000 ml Inj) 500 ml @ 500 mls/hr Q1H PRN IV SEE LABEL COMMENTS; Start 03/16/17 at 11:30 Miscellaneous Information (Post-op Orders (for Pharmacy)) STAT ONCE OTHER ; Start 03/16/17 at 11:00; Stop 03/16/17 at 11:33; Status DC Aspirin (Aspirin Chew) 81 mg DAILY PO ; Start 03/17/17 at 09:00 Clopidogrel Bisulfate (Plavix) 75 mg DAILY PO ; Start 03/17/17 at 09:00 Pantoprazole Sodium (Protonix) 40 mg DAILY@06 PO ; Start 03/17/17 at 06:00 Amiodarone HCl (Cordarone) 200 mg Q12HR PO ; Start 03/16/17 at 21:00 Acetaminophen (Tylenol) 650 mg Q4H PRN PO TEMPERATURE > 101 F; Start 03/16/17 at 11:00 Acetaminophen (Tylenol Supp) 650 mg Q4H PRN RECTAL TEMPERATURE > 101 F; Start 03/16/17 at 11:00 Acetaminophen (Ofirmev Inj) 1,000 mg Q6H IV ; Start 03/16/17 at 12:00; Stop at 06:01 Morphine Sulfate (Morphine Inj) 1 mg Q10M PRN IV PAIN SCALE 1 TO 5; Start 03/16 at 11:00 Meperidine HCl (Demerol Inj) 12.5 mg Q4H PRN IV SEE LABEL COMMENTS; Start 03/16 at 11:00 Acetaminophen/ Hydrocodone Bitart ([place] 5-325 Mg) 1 tab Q3H PRN PO PAIN SCALE 1 TO 5; Start 03/16/17 at 11:00 Acetaminophen/ Hydrocodone Bitart ([place] 5-325 Mg) 2 tab Q3H PRN PO PAIN SCALE 6 TO 10; Start 03/16/17 at 11:00 Ketorolac Tromethamine (Toradol Inj) 15 mg Q6H PRN IV PUSH SEE LABEL COMMENTS; Start 03/16/17 at 11:00; Stop 03/18/17 at 10:59 Fentanyl Citrate (fentaNYL INJ) 25 mcg Q1H PRN IV BREAKTHROUGH PAIN; Start at 11:00 Ondansetron HCl (Zofran Inj) 4 mg Q6H PRN IV PUSH NAUSEA OR VOMITING; Start at 11:00 Hydralazine HCl (Apresoline Inj) 10 mg Q4H PRN IV SEE LABEL COMMENTS; Start at 11:00 Metoprolol Tartrate 2.5 mg 2.5 mg Q1H PRN IV PUSH SEE LABEL COMMENTS; Start at 11:00 Potassium Chloride 100 ml @ 50 mls/hr UNSCH PRN IV SEE LABEL COMMENTS; Start 03/16/17 at 11:00 Potassium Chloride 100 ml @ 50 mls/hr UNSCH PRN IV SEE LABEL COMMENTS; Start 03/16/17 at 11:00 Potassium Chloride (KCl 20 Meq Premix Inj) 100 ml @ 50 mls/hr UNSCH PRN IV SEE LABEL COMMENTS; Start 03/16/17 at 11:00 Potassium Chloride (KCl) 20 meq UNSCH PRN PO SEE LABEL COMMENTS; Start at 11:00; Stop 03/16/17 at 11:36; Status DC Potassium Chloride 40 meq 40 meq UNSCH PRN PO SEE LABEL COMMENTS; Start at 11:00; Stop 03/16/17 at 11:36; Status DC Magnesium Sulfate 2 gm/Sodium Chloride 104 ml @ 100 mls/hr UNSCH PRN IV SEE LABEL COMMENTS; Start 03/16/17 at 11:00 Magnesium Sulfate 2 gm/Sodium Chloride 104 ml @ 50 mls/hr UNSCH PRN IV SEE LABEL COMMENTS; Start 03/16/17 at 11:00 Calcium Chloride/ Sodium Chloride (Calcium Chloride Inj/NS Inj) 110 ml @ 100 mls/hr UNSCH PRN IV SEE LABEL COMMENTS; Start 03/16/17 at 11:00 Calcium Chloride 0.5 gm 0.5 gm UNSCH PRN IV SEE LABEL COMMENTS; Start 03/16/17 at 11:00 Insulin Human Regular/Sodium Chloride (NovoLIN R (IV INFUSION)/NS Inj) 100 ml @ 0 mls/hr TITRATE IV ; Start 03/16/17 at 12:00 Dextrose 50 ml 50 ml UNSCH PRN IV PUSH HYPOGLYCEMIA-SEE COMMENTS; Start at 11:00 Cefazolin Sodium/ Dextrose (Ancef 2 Gm Premix) 50 ml @ 100 mls/hr Q8H IV ; Start 03/16/17 at 16:00; Stop 03/18/17 at 00:29 Albuterol/ Ipratropium (Duoneb Neb) 1 ampule Q6HR NEB NEB ; Start 03/16/17 at 16:00 Albuterol/ Ipratropium (Duoneb Neb) 1 ampule Q2HR NEB PRN NEB WHEEZING; Start 03/16/17 at 11:00 Racepinephrine (Racepinephrine 2.25% Neb) 0.5 ml UNSCH X1 PRN NEB STRIDOR; Start 03/16/17 at 11:00; Stop 03/16/17 at 11:35; Status DC A/P Problem List: (1) Syncope ICD Code: R55 Status: Acute (2) Elevated troponin ICD Code: R74.8 Status: Acute Assessment and Plan 71-year-old male presented with syncopal episode most likely secondary to insulin 70 NSTEMI - Status post CABG done this morning. -Postop management per cardiac vascular surgeon Dr Dillard -Status post cardiac catheterization done on 03/11/2017 showing multi-vascular disease. Questionable hx of GI bleed a few weeks ago - No signs of GI bleed. Hemoglobin has been stable. -GI was consulted for clearance for cardiac bypass. GI stated patient can follow-up as outpatient for colonoscopy. DVT prophylaxis- SCD Discharge Planning Patient just got out of OR and is in CVICU. Management per Cardiovascular Surgeon. Problem Qualifiers (1) Syncope: Qualified Code: R55 - Syncope, unspecified syncope type Trang Casanova MD Mar 16, 2017 13:03
--- NOTE | 2017-03-16 13:16 | PD.OP ---
cc: Nader Dennis MD; Lourdes Dillard MD Operative Report Date of Surgery: Mar 16, 2017 Preoperative Diagnosis: Postoperative Diagnosis: Procedure: 1. Off-pump Coronary Artery Bypass Grafting x 2 with left internal mammary artery ([place]) to left anterior descending (LAD), reverse saphenous vein graft Diagonal 1 2. Left Leg Endoscopic Vein [place] 3. Intraoperative Vein Mapping. . Surgeon: Lourdes Dillard Financial Advocate(s): Sabina Thorne . Operation and Findings: PREPROCEDURE DIAGNOSES 1. Severe LAD/Diagonal Coronary Artery Disease. 2. In-stent Restenosis 3. Mild Left Ventricular Dysfunction (EF 45%) POSTPROCEDURE DIAGNOSES Same SURGICAL PROCEDURE 1. Off-pump Coronary Artery Bypass Grafting x 2 with left internal mammary artery ([place]) to left anterior descending (LAD), reverse saphenous vein graft Diagonal 1 2. Left Leg Endoscopic Vein [place] 3. Intraoperative Vein Mapping. SURGEON Lourdes Dillard MD BALL FRINGE MACHINE OPERATOR JIM Fair ANESTHESIA General endotracheal STRONG NITRIC OPERATOR CHRISTIAN Gan MD PREPARATION ChloraPrep. COUNTS Needle, sponge, and instrument counts were correct. DRAINS Two 32-[place] mediastinal tubes. COMPLICATIONS None. INDICATIONS FOR PROCEDURE The patient is a 71 year-old pleasant gentleman presenting with chest pain and recurrent CAD. The patient is being brought to the operating room for surgical revascularization therapy. PROCEDURE Patient was brought to the operating room and placed supine on the OR table. Following the induction of adequate general endotracheal anesthesia and placement of appropriate monitoring devices, intraoperative vein mapping was performed which revealed usable-caliber conduit in bilateral lower extremities. The patient was then prepped and draped in standard sterile fashion. Next, 2500 units of intravenous heparin was given. The left greater saphenous vein was harvested endoscopically. This appeared to be a small but useable-caliber conduit. Simultaneously, a median sternotomy was performed and the left internal mammary artery dissected free off the posterior sternal table. The patient was systemically heparinized and anticoagulation monitored by serial ACT measurements. The internal mammary artery had excellent pulsatile flow in it and was a good-caliber conduit. The pericardium was then divided in the midline, the cradle created and targets analyzed. At this point, all anastomoses were performed in a beating-heart fashion using the Maquet stabilizing system. The left internal mammary artery was anastomosed to the distal LAD (1.25 mm) in an end-to-side fashion using 7-0 Prolene. Segment of saphenous vein graft was then anastomosed to the D1 (1.75 mm) in an end-to-side fashion using 7-0 Prolene. The proximal anastomosis was then constructed to the ascending aorta in a running manner using 6-0 Prolene. All anastomotic sites were inspected and appeared to be hemostatic and patent. Protamine solution was given. Strict hemostasis was assured. The closure was undertaken. 2 chest tubes were placed. The pericardium was reapproximated in the midline. The sternum was approximated using sternal wires. The muscular and fascial layer were then closed in 3 layers. The endoscopic vein harvest site was closed in 2 layers. The patient tolerated the procedure well and was transferred to CVICU in stable condition. Lourdes Dillard MD Mar 16, 2017 13:16
[2017-03-16] MEDS: ACETAMINOPHEN 1000 MG/100 ML VIAL IV SCH ×2 (13:18→18:00)
--- NOTE | 2017-03-16 13:21 | PD.CARD.PN ---
Subjective Subjective Remarks intubated, sedated Objective Vital Signs / I&O Vital Signs Date Time Temp Pulse Resp B/P Pulse Ox O2 Delivery O2 Flow Rate FiO2 03/16/17 12:40 93 Nasal Cannula 6 03/16/17 12:23 62 03/16/17 12:23 97.6 62 15 106/51 97 102/64 03/16/17 11:31 98 60 03/16/17 07:00 98.3 61 16 111/66 97 03/16/17 07:00 61 03/16/17 05:50 98.7 47 12 111/66 97 03/16/17 03:00 49 03/15/17 23:00 68 03/15/17 19:00 98.7 56 16 116/72 97 03/15/17 19:00 54 03/15/17 18:00 76 03/15/17 17:00 65 03/15/17 16:00 69 03/15/17 15:00 66 03/15/17 15:00 98.6 76 20 95/60 99 03/15/17 14:00 71 I/O 03/15/17 03/15/17 03/15/17 03/16/17 03/16/17 03/16/17 07:00 15:00 23:00 07:00 15:00 23:00 Intake Total 360 ml 680 ml 240 ml Output Total 520 ml 600 ml 500 ml Balance -160 ml 80 ml -260 ml Intake Oral 360 ml 680 ml 240 ml IV Total 0 ml 0 ml Output Urine Total 520 ml 600 ml 500 ml # Voids 2 2 # Bowel Movements 0 0 1 Laboratory GENERAL: SKIN: Warm and dry. HEAD: Normocephalic. EYES: No scleral icterus. No injection or drainage. NECK: Supple, trachea midline. No JVD or lymphadenopathy. CARDIOVASCULAR: Regular rate and rhythm without murmurs, gallops, or rubs. RESPIRATORY: Breath sounds equal bilaterally. No accessory muscle use. GASTROINTESTINAL: Abdomen soft, non-tender, nondistended. MUSCULOSKELETAL: No cyanosis, or edema. BACK: Nontender without obvious deformity. No CVA tenderness. Assessment and Plan Problem List: (1) Syncope (2) GI bleed (3) Elevated troponin (4) CAD (coronary artery disease) (5) NSTEMI (non-ST elevated myocardial infarction) Assessment and Plan 1.) CAD - pod#0, opcabg lad and diag, continue lipitor, asa, lopressor Problem Qualifiers (1) Syncope: Qualified Code: R55 - Syncope, unspecified syncope type (2) GI bleed: Qualified Code: K92.2 - Gastrointestinal hemorrhage, unspecified gastrointestinal hemorrhage type Nader Dennis MD Mar 16, 2017 13:21
[2017-03-16] MEDS ORDERED: PROTAMINE SULFATE 250 MG/25 ML VIAL IV ONE (13:30)
[2017-03-16] MEDS: RESP: ALBUTEROL 2.5 MG/IPRATROPIUM 0.5 MG NEB (SCH) NEB ×2 (15:51→21:21)
[2017-03-16] MEDS: KETOROLAC TROMETHAMINE 30 MG/ML (IVP) VIAL IV PUSH PRN (16:20)
[2017-03-16] MEDS: ceFAZolin 2 GM PREMIX 50 ML IV SCH (16:21)
[2017-03-16] MEDS: ACETAMINOPHEN/HYDROcodone 325 MG/5 MG TAB PO PRN (20:17)
[2017-03-16] MEDS: ATORVASTATIN 80 MG TAB PO SCH (20:17)
[2017-03-16] MEDS: AMIODARONE 200 MG TAB PO SCH (20:17)
[2017-03-16] MEDS ORDERED: SODIUM CHLORIDE 0.9% FLUSH 10 ML FLUSH IV FLUSH SCH (21:00)
[2017-03-17] VITALS (12 sets, daily range): BP systolic 85–115; BP diastolic 56–65; PULSE 72–95; RESP 16–20; TEMP 98.3–99.8; O2SAT 92–99
[2017-03-17] MEDS: ACETAMINOPHEN/HYDROcodone 325 MG/5 MG TAB PO PRN ×3 (00:18→18:45)
[2017-03-17] MEDS: KETOROLAC TROMETHAMINE 30 MG/ML (IVP) VIAL IV PUSH PRN (00:21)
[2017-03-17] MEDS: ceFAZolin 2 GM PREMIX 50 ML IV SCH ×4 (00:21→23:51)
[2017-03-17] MEDS: ALBUMIN HUMAN 5% 12.5 GM/250 ML BOTTLE IV PRN ×2 (00:21→02:53)
[2017-03-17] MEDS: LACTATED RINGER'S 1000 ML INJ 500 ML IV PRN ×2 (01:04→09:12)
[2017-03-17] MEDS: RESP: ALBUTEROL 2.5 MG/IPRATROPIUM 0.5 MG NEB (SCH) NEB ×4 (04:27→19:44)
[2017-03-17 04:28] LABS: HEMATOCRIT 23.7 % (39.0-51.0); MEAN CELL VOLUME 92.7 FL (80.0-100.0); MEAN CORPUSCULAR HEMOGLOBIN 31.6 PG (27.0-34.0); MEAN CORPUSCULAR HGB CONC 34.1 % (32.0-36.0); PLATELET COUNT 200 TH/MM3 (150-450); RED BLOOD COUNT 2.55 MIL/MM3 (4.50-5.90); RED CELL DISTRIBUTION WIDTH 13.1 % (11.6-17.2); REVIEW FLAG FINAL; WHITE BLOOD COUNT 5.7 TH/MM3 (4.0-11.0)
--- NOTE | 2017-03-17 04:46 | RADRPT ---
EXAM DATE/TIME: 03/17/2017 03:17 [facility] COMPARISON: CHEST SINGLE AP, March 16, 2017, 11:38. INDICATIONS : Shortness of breath. MEDICAL HISTORY : None. SURGICAL HISTORY : CABG. ENCOUNTER: Subsequent ACUITY: 1 week PAIN SCORE: 0/10 LOCATION: Bilateral chest FINDINGS: Median sternotomy changes are again noted. Left chest tube, mediastinal drain and right internal jugu lar central venous catheter with tip in the right a term implies. There is no pneumothorax. Endotracheal tube and nasogastric tube out. Mild left base consolidation again noted, slightly worse. CONCLUSION: 1. Interim extubation and nasogastric tube removal. 2. Other lines and tubes unchanged, including a left chest tube. No pneumothorax. 3. Left base consolidation slightly worse in the interim, mild. Ramez Brewer MD on March 17, 2017 at 4:43 Board Certified Radiologist. This report was verified electronically.
[2017-03-17 04:49] LABS: BICARBONATE 27.2 MEQ/L (21.0-32.0); POTASSIUM 4.3 MEQ/L (3.5-5.1)
[2017-03-17] MEDS: ACETAMINOPHEN 1000 MG/100 ML VIAL IV SCH ×2 (06:00)
[2017-03-17] MEDS: PANTOPRAZOLE SOD 40 MG DELAYED RELEASE TAB PO SCH (06:19)
[2017-03-17] MEDS: PANTOPRAZOLE SODIUM 40 MG VIAL IV PUSH SCH (08:17)
[2017-03-17] MEDS: CLOPIDOGREL 75 MG TAB PO SCH (08:18)
[2017-03-17] MEDS: SODIUM CHLORIDE 0.9% FLUSH 10 ML FLUSH IV FLUSH SCH ×2 (08:18→20:53)
[2017-03-17] MEDS: ASPIRIN 81 MG CHEW TAB PO SCH (08:18)
[2017-03-17] MEDS: AMIODARONE 200 MG TAB PO SCH ×2 (08:18→20:52)
[2017-03-17] MEDS: METOPROLOL TARTRATE 25 MG TAB PO SCH ×2 (08:46→20:51)
[2017-03-17] MEDS ORDERED: SOD PHOSPHATE/SOD BIPHOSPHATE (ADULT) ENEMA 133ML RECTAL PRN (09:00)
[2017-03-17] MEDS ORDERED: DEXTROSE 50% IN WATER 50 ML VIAL(D50) IV PRN (09:00)
[2017-03-17] MEDS: MULTIVITAMINS/MINERALS THERAPEUTIC TAB PO SCH (09:00)
[2017-03-17] MEDS ORDERED: GLUCAGON 1 MG/ML VIAL OTHER PRN (09:00)
[2017-03-17] MEDS ORDERED: BISACODYL 10 MG SUPP RECTAL PRN (09:00)
--- NOTE | 2017-03-17 09:09 | PD.CAR.PN ---
CVT Progress Note Subjective/Hospital Course: 71/ mal;e hx CAD prior PCI LAD, diagonal. Treated with xarelto and ASA post pci , recently developed GI Bleed / anticoagulation was stopped. He did not see GI as outpt / presented to ED syncopal episode + trop . Admitted with NSTEMI underwent cardia cath by Dr Dennis / 80% LAD, 80% Diagonal , 30% RCA . EF 60% . We were consulted for Coronary artery bypass grafting He was seen by GI/ Occult blood + stools , per GI probable anorectal disease 1. OB + stools--prob an anorectal disease, rectal bleed resolved , stable anemia , recommend to proceed with CABG PMH: HLP, CAD prior PCT, dementia on [place], paroxysmal atrial fib 03/13 no chest pain or SOB await daughter to sign consent for surgery may need phone consent 03/15 CP free OR in am 03/16 1. Off-pump Coronary Artery Bypass Grafting x 2 with left internal mammary artery ([place]) to left anterior descending (LAD), reverse saphenous vein graft Diagonal 1 2. Left Leg Endoscopic Vein [place] 3. Intraoperative Vein Mapping. crystalloid 3100cc/ EBL 250cc, 250cc cell saver extubated after surgery 03/17 BP labile last pm drained 230cc/ 12 hrs from chest tube on low dose dopamine, weaning off slowly eval for transfer to stepdown later today Objective: GENERAL: SKIN: Warm and dry. prevena to chest, incision intact left leg HEAD: Normocephalic. EYES: No scleral icterus. No injection or drainage. NECK: Supple, trachea midline. No JVD or lymphadenopathy. CARDIOVASCULAR: Regular rate and rhythm without murmurs, gallops, or rubs. RESPIRATORY: diminished in the bases, chest tube no air leak, Breath sounds equal bilaterally. No accessory muscle use. GASTROINTESTINAL: Abdomen soft, non-tender, nondistended. MUSCULOSKELETAL: No cyanosis, or edema. BACK: Nontender without obvious deformity. No CVA tenderness. Vital Signs Date Time Temp Pulse Resp B/P Pulse Ox O2 Delivery O2 Flow Rate FiO2 03/17/17 07:03 94 Nasal Cannula 2.00 03/17/17 04:30 94 Nasal Cannula 1.00 03/17/17 03:00 76 03/17/17 03:00 99.4 72 16 85/59 95 03/17/17 03:00 78 03/17/17 03:00 96 Nasal Cannula 1.00 03/16/17 23:00 83 03/16/17 23:00 97 Nasal Cannula 3.00 03/16/17 23:00 86 03/16/17 23:00 99.0 82 20 102/64 97 115/55 03/16/17 21:20 Nasal Cannula 3.00 03/16/17 19:00 97.9 77 16 107/67 95 113/62 03/16/17 19:00 95 Nasal Cannula 3.00 03/16/17 19:00 77 03/16/17 19:00 73 03/16/17 16:16 62 03/16/17 16:16 98.3 59 19 87/53 97 93/49 03/16/17 12:40 93 Nasal Cannula 6 03/16/17 12:23 62 03/16/17 12:23 97.6 62 15 106/51 97 102/64 03/16/17 11:45 97.6 03/16/17 11:31 98 60 Labs: Laboratory Tests Test 03/17/17 03:57 White Blood Count 5.7 TH/MM3 (4.0-11.0) Red Blood Count 2.55 MIL/MM3 (4.50-5.90) Hemoglobin 8.1 GM/DL (13.0-17.0) Hematocrit 23.7 % (39.0-51.0) Mean Corpuscular Volume 92.7 FL (80.0-100.0) Mean Corpuscular Hemoglobin 31.6 PG (27.0-34.0) Mean Corpuscular Hemoglobin 34.1 % Concent (32.0-36.0) Red Cell Distribution Width 13.1 % (11.6-17.2) Platelet Count 200 TH/MM3 (150-450) Mean Platelet Volume 9.2 FL (7.0-11.0) Sodium Level 139 MEQ/L (136-145) Potassium Level 4.3 MEQ/L (3.5-5.1) Chloride Level 105 MEQ/L (98-107) Carbon Dioxide Level 27.2 MEQ/L (21.0-32.0) Anion Gap 7 MEQ/L (5-15) Blood Urea Nitrogen 19 MG/DL (7-18) Creatinine 0.86 MG/DL (0.60-1.30) Estimat Glomerular Filtration 87 ML/MIN (>89) Rate Random Glucose 101 MG/DL (74-106) Calcium Level 8.2 MG/DL (8.5-10.1) Magnesium Level 2.0 MG/DL (1.5-2.5) Result Diagram: 03/17/1735603/17/17356 (1) CAD (coronary artery disease) (2) S/P CABG x 2 Plan: ASA, Plavix , hold BB for now , labile BP OOB, ambulate , pulm toileting nebs, ezpap , acapella cm to eval for rehab (3) Elevated troponin (4) Syncope (5) GI bleed Plan: on PPI / monitor H&H (6) NSTEMI (non-ST elevated myocardial infarction) Problem Qualifiers (1) Syncope: Qualified Code: R55 - Syncope, unspecified syncope type (2) GI bleed: Qualified Code: K92.2 - Gastrointestinal hemorrhage, unspecified gastrointestinal hemorrhage type Jalyn Underwood Mar 17, 2017 09:08
[2017-03-17] MEDS: INSULIN ASPART SUPPLEMENTAL SCALE SQ SCH ×4 (10:00→22:00)
[2017-03-17] MEDS ORDERED: NAMENDA 21 MG PO SCH (10:00)
[2017-03-17] MEDS: MAGNESIUM HYDROXIDE SUSP 30 ML CUP PO SCH (10:58)
[2017-03-17] MEDS: DOCUSATE SODIUM 100 MG CAP PO SCH ×2 (10:58→20:52)
[2017-03-17] MEDS: LEVOTHYROXINE SODIUM 75 MCG TAB PO SCH (11:01)
--- NOTE | 2017-03-17 11:09 | RSPPFT ---
DATE OF PROCEDURE: 03/12/17 COMMENTS: Spirometry with FVC of 3.0, FEV1 of 2.3, FEV1/FVC ratio at 75%. Moderate obstruction noted in the post-bronchodilator study. IMPRESSION: 1. Moderate airways obstruction. 2. Non-significant response to acutely inhaled bronchodilator.
--- NOTE | 2017-03-17 13:16 | HHI.PR ---
Subjective Remarks Follow-up for CABG Patient seen in CVICU He sitting up in the chair. He is very anxious to ambulate. He denies any chest pain, shortness breathing, palpitation, lightheadedness or dizziness. Patient is still on the dopamine drip. Patient blood pressure has been very labile which required a dopamine drip. His nurse is at the bedside. Objective Vitals Vital Signs Date Time Temp Pulse Resp B/P Pulse Ox O2 Delivery O2 Flow Rate FiO2 03/17/17 11:05 78 03/17/17 11:05 99 Nasal Cannula 2.00 03/17/17 11:05 98.5 77 20 85/56 99 Arterial Line 03/17/17 07:30 94 Nasal Cannula 3.00 03/17/17 07:30 98.4 89 18 112/65 92 115/59 03/17/17 07:30 89 03/17/17 07:15 77 03/17/17 07:03 94 Nasal Cannula 2.00 03/17/17 04:30 94 Nasal Cannula 1.00 03/17/17 03:00 76 03/17/17 03:00 99.4 72 16 85/59 95 03/17/17 03:00 78 03/17/17 03:00 96 Nasal Cannula 1.00 03/16/17 23:00 83 03/16/17 23:00 97 Nasal Cannula 3.00 03/16/17 23:00 86 03/16/17 23:00 99.0 82 20 102/64 97 115/55 03/16/17 21:20 Nasal Cannula 3.00 03/16/17 19:00 97.9 77 16 107/67 95 113/62 03/16/17 19:00 95 Nasal Cannula 3.00 03/16/17 19:00 77 03/16/17 19:00 73 03/16/17 16:16 62 03/16/17 16:16 98.3 59 19 87/53 97 93/49 I/O 03/16/17 03/16/17 03/16/17 03/17/17 03/17/17 03/17/17 07:00 15:00 23:00 07:00 15:00 23:00 Intake Total 240 ml 645 ml 1773 ml Output Total 500 ml 1200 ml 800 ml Balance -260 ml -555 ml 973 ml Intake Oral 240 ml 95 ml 240 ml IV Total 550 ml 1033 ml Albumin 500 ml Output Urine Total 500 ml 800 ml 570 ml Chest Tube Drainage Total 400 ml 230 ml # Voids 2 # Bowel Movements 1 0 Result Diagram: 03/17/1735603/17/17356 Objective Remarks GENERAL: in NAD found sitting in the chair. SKIN: Wound VAC in place midchest. CARDIOVASCULAR: Regular rate and rhythm without murmurs, gallops, or rubs. RESPIRATORY: Breath sounds equal bilaterally. No accessory muscle use. Chest tube in place GASTROINTESTINAL: Abdomen soft, non-tender, nondistended. Procedures Off-pump Coronary Artery Bypass Grafting x 2 with left internal mammary artery ( [place]) to left anterior descending (LAD), reverse saphenous vein graft Diagonal 1 , Left Leg Endoscopic Vein [place], and Intraoperative Vein Mapping on 2016 Medications and IVs Current Medications Sodium Chloride (NS Flush) 2 ml UNSCH PRN IV FLUSH FLUSH AFTER USING IV ACCESS ; Start 03/10/17 at 20:45; Stop 03/11/17 at 15:51; Status DC Sodium Chloride (NS Flush) 2 ml BID IV FLUSH Last administered on 03/11/17 10: 18; Start 03/10/17 at 21:00; Stop 03/11/17 at 15:51; Status DC Naloxone HCl (Narcan Inj) 0.4 mg UNSCH PRN IV SEE LABEL COMMENTS; Start at 20:45 Pantoprazole Sodium (Protonix Inj) 40 mg Q12HR IV PUSH Last administered on 08:17; Start 03/10/17 at 21:00; Stop 03/17/17 at 08:55; Status DC Enoxaparin Sodium (Lovenox Inj) 70 mg Q12H SQ ; Start 03/11/17 at 02:00; Stop at 15:52; Status DC Aspirin (Ecotrin Ec) 81 mg DAILY PO Last administered on 03/15/17 09:30; Start 03/11/17 at 10:45; Stop 03/16/17 at 11:31; Status DC Metoprolol Tartrate (Lopressor) 12.5 mg Q12HR PO Last administered on 20:17; Start 03/11/17 at 10:45; Stop 03/17/17 at 09:13; Status DC Miscellaneous (Pill Splitter) 1 ea UNSCH PRN OTHER SEE LABEL COMMENTS Last administered on 03/11/17 12:17; Start 03/11/17 at 11:00 Atorvastatin Calcium 80 mg 80 mg HS PO Last administered on 03/16/17 20:17; Start 03/11/17 at 21:00 Heparin Sodium/ Sodium Chloride (Heparin-NS/Pf Inj) 500 ml @ As Directed STK- MED ONCE .ROUTE Last administered on 03/11/17 14:04; Start 03/11/17 at 14:04; Stop 03/11/17 at 14:05; Status DC Heparin Sodium (Porcine) (Heparin Inj) 10,000 units STK-MED ONCE .ROUTE Last administered on 03/11/17 14:51; Start 03/11/17 at 14:47; Stop 03/11/17 at 14:48 ; Status DC Adenosine (Adenoscan Inj) 90 mg STK-MED ONCE .ROUTE ; Start 03/11/17 at 14:51; Stop 03/11/17 at 14:52; Status DC Sodium Chloride (NS Flush) 2 ml UNSCH PRN IV FLUSH FLUSH AFTER USING IV ACCESS ; Start 03/11/17 at 15:30; Stop 03/12/17 at 16:44; Status DC Sodium Chloride (NS Flush) 2 ml BID IV FLUSH Last administered on 03/12/17 08: 24; Start 03/11/17 at 21:00; Stop 03/12/17 at 16:44; Status DC Miscellaneous Information 1 ONCE ONCE XX ; Start 03/11/17 at 15:30; Stop at 15:51; Status DC Gadodiamide (Omniscan Pf Inj) 30 ml STK-MED ONCE IV Last administered on 12:06; Start 03/12/17 at 12:06; Stop 03/12/17 at 12:07; Status DC Iohexol (OMNIPAQUE 350 INJ (Business Process Coordinator)) 100 ml STK-MED ONCE OTHER ; Start at 13:25; Stop 03/12/17 at 13:25; Status DC Sodium Chloride (NS Flush) 2 ml BID IV FLUSH Last administered on 03/17/17 08: 18; Start 03/12/17 at 21:00 Sodium Chloride 2 ml 2 ml UNSCH PRN IV FLUSH FLUSH AFTER USING IV ACCESS; Start 03/12/17 at 16:30 Papaverine HCl 60 mg/Nitroglycerin 100 mcg/Diltiazem HCl 100 mg/Sodium Chloride 100.0 ml @ 0 mls/hr CHIP FRIER IRRIGATION Last administered on 03/16/17 08:47; Start 03/12/17 at 16:30; Stop 03/17/17 at 08:55; Status DC Cefazolin Sodium 500 mg/Sodium Chloride 505 ml @ 0 mls/hr CHIP FRIER IRRIGATION Last administered on 03/16/17 08:47; Start 03/12/17 at 16:30; Stop 03/17/17 at 08:56; Status DC Cefazolin Sodium/ Dextrose (Ancef 2 Gm Premix) 50 ml @ 150 mls/hr CHIP FRIER IV Last administered on 03/16/17 07:40; Start 03/12/17 at 16:30; Stop 03/17/17 at 08:56; Status DC Metoprolol Tartrate (Lopressor) 12.5 mg CHIP FRIER PO ; Start 03/12/17 at 16:30; Stop 03/17/17 at 08:55; Status DC Chlorhexidine Gluconate 1 applic 1 applic CHIP FRIER TOPICAL Last administered on 03/15/17 22:48; Start 03/12/17 at 16:30; Stop 03/17/17 at 08:56; Status DC Insulin Human Regular/Sodium Chloride (NovoLIN R (IV INFUSION)/NS Inj) 101 ml @ 0 mls/hr CHIP FRIER IV ; Start 03/12/17 at 16:30; Stop 03/17/17 at 08:56; Status DC Diphenhydramine HCl (Benadryl) 25 mg ONCE ONCE PO Last administered on 21:04; Start 03/12/17 at 20:45; Stop 03/12/17 at 20:46; Status DC Vancomycin HCl 3000 mg 3,000 mg STK-MED ONCE .ROUTE Last administered on 08:48; Start 03/16/17 at 06:27; Stop 03/16/17 at 06:28; Status DC Cefazolin Sodium/ Dextrose (Ancef 2 Gm Premix) 50 ml @ As Directed STK-MED ONCE .ROUTE ; Start 03/16/17 at 06:27; Stop 03/16/17 at 06:28; Status DC Heparin Sodium (Porcine) (Heparin Inj) 40,000 units STK-MED ONCE .ROUTE Last administered on 03/16/17 08:47; Start 03/16/17 at 06:28; Stop 03/16/17 at 06:29 ; Status DC Midazolam HCl (Versed Inj) 10 mg STK-MED ONCE .ROUTE ; Start 03/16/17 at 07:01; Stop 03/16/17 at 07:02; Status DC Fentanyl Citrate (fentaNYL INJ) 1,000 mcg STK-MED ONCE .ROUTE ; Start 03/16/17 at 07:01; Stop 03/16/17 at 07:02; Status DC Sodium Chloride (NS Flush) 2 ml BID IV FLUSH ; Start 03/16/17 at 21:00; Status Cancel Sodium Chloride 2 ml 2 ml UNSCH PRN IV FLUSH FLUSH AFTER USING IV ACCESS; Start 03/16/17 at 11:00; Status Cancel Dexmedetomidine HCl 200 mcg/ Sodium Chloride 52 ml @ 0 mls/hr TITRATE IV ; Start 03/16/17 at 11:00; Status UNV Nitroglycerin/ Dextrose 250 ml @ 0 mls/hr TITRATE IV ; Start 03/16/17 at 11:00; Stop 03/17/17 at 08:56; Status DC Dobutamine HCl/ Dextrose 250 ml @ 10.995 mls/ hr [id number] IV ; Start 03/16/17 at 11:30; Stop 03/17/17 at 08:57; Status DC Dopamine HCl/ Dextrose 500 ml @ 0 mls/hr TITRATE IV Last administered on t 04:12; Start 03/16/17 at 11:00 Epinephrine HCl 4 mg/Dextrose 250 ml @ 0 mls/hr TITRATE IV ; Start 03/16/17 at 12:00; Stop 03/17/17 at 08:57; Status DC Phenylephrine HCl 40 mg/Dextrose 500 ml @ 0 mls/hr TITRATE IV ; Start 03/16/17 at 12:00; Stop 03/17/17 at 08:57; Status DC Clevidipine (Cleviprex Inj) 50 ml @ 0 mls/hr TITRATE IV ; Start 03/16/17 at 11: 00; Stop 03/17/17 at 08:57; Status DC Albumin Human 12.5 gm 12.5 gm UNSCH PRN IV SEE LABEL COMMENTS Last administered on 03/17/17 02:53; Start 03/16/17 at 11:00; Stop 03/17/17 at 08:58 ; Status DC Lactated Ringer's (Lr 1000 ml Inj) 500 ml @ 500 mls/hr Q1H PRN IV SEE LABEL COMMENTS Last administered on 03/17/17 09:12; Start 03/16/17 at 11:30 Miscellaneous Information (Post-op Orders (for Pharmacy)) STAT ONCE OTHER ; Start 03/16/17 at 11:00; Stop 03/16/17 at 11:33; Status DC Aspirin (Aspirin Chew) 81 mg DAILY PO Last administered on 03/17/17 08:18; Start 03/17/17 at 09:00 Clopidogrel Bisulfate (Plavix) 75 mg DAILY PO Last administered on 03/17/17 08 :18; Start 03/17/17 at 09:00 Pantoprazole Sodium (Protonix) 40 mg DAILY@06 PO Last administered on 06:19; Start 03/17/17 at 06:00 Amiodarone HCl (Cordarone) 200 mg Q12HR PO Last administered on 03/17/17 08:18 ; Start 03/16/17 at 21:00 Acetaminophen (Tylenol) 650 mg Q4H PRN PO TEMPERATURE > 101 F; Start 03/16/17 at 11:00 Acetaminophen (Tylenol Supp) 650 mg Q4H PRN RECTAL TEMPERATURE > 101 F; Start 03/16/17 at 11:00; Stop 03/17/17 at 08:58; Status DC Acetaminophen (Ofirmev Inj) 1,000 mg Q6H IV Last administered on 03/16/17 18: 00; Start 03/16/17 at 12:00; Stop 03/17/17 at 06:01; Status DC Morphine Sulfate (Morphine Inj) 1 mg Q10M PRN IV PAIN SCALE 1 TO 5; Start 03/16 at 11:00; Stop 03/17/17 at 08:58; Status DC Meperidine HCl (Demerol Inj) 12.5 mg Q4H PRN IV SEE LABEL COMMENTS; Start 03/16 at 11:00 Acetaminophen/ Hydrocodone Bitart ([place] 5-325 Mg) 1 tab Q3H PRN PO PAIN SCALE 1 TO 5; Start 03/16/17 at 11:00 Acetaminophen/ Hydrocodone Bitart ([place] 5-325 Mg) 2 tab Q3H PRN PO PAIN SCALE 6 TO 10 Last administered on 03/17/17 00:18; Start 03/16/17 at 11:00 Ketorolac Tromethamine (Toradol Inj) 15 mg Q6H PRN IV PUSH SEE LABEL COMMENTS Last administered on 03/17/17 00:21; Start 03/16/17 at 11:00; Stop 03/18/17 at 10:59 Fentanyl Citrate (fentaNYL INJ) 25 mcg Q1H PRN IV BREAKTHROUGH PAIN Last administered on 03/16/17 13:19; Start 03/16/17 at 11:00; Stop 03/17/17 at 08:58 ; Status DC Ondansetron HCl (Zofran Inj) 4 mg Q6H PRN IV PUSH NAUSEA OR VOMITING Last administered on 03/17/17 04:37; Start 03/16/17 at 11:00 Hydralazine HCl (Apresoline Inj) 10 mg Q4H PRN IV SEE LABEL COMMENTS; Start at 11:00; Stop 03/17/17 at 08:58; Status DC Metoprolol Tartrate 2.5 mg 2.5 mg Q1H PRN IV PUSH SEE LABEL COMMENTS; Start at 11:00 Potassium Chloride 100 ml @ 50 mls/hr UNSCH PRN IV SEE LABEL COMMENTS Last administered on 03/16/17 13:21; Start 03/16/17 at 11:00; Stop 03/17/17 at 08:58 ; Status DC Potassium Chloride 100 ml @ 50 mls/hr UNSCH PRN IV SEE LABEL COMMENTS; Start 03/16/17 at 11:00; Stop 03/17/17 at 08:58; Status DC Potassium Chloride (KCl 20 Meq Premix Inj) 100 ml @ 50 mls/hr UNSCH PRN IV SEE LABEL COMMENTS; Start 03/16/17 at 11:00; Stop 03/17/17 at 08:58; Status DC Potassium Chloride (KCl) 20 meq UNSCH PRN PO SEE LABEL COMMENTS; Start at 11:00; Stop 03/16/17 at 11:36; Status DC Potassium Chloride 40 meq 40 meq UNSCH PRN PO SEE LABEL COMMENTS; Start at 11:00; Stop 03/16/17 at 11:36; Status DC Magnesium Sulfate 2 gm/Sodium Chloride 104 ml @ 100 mls/hr UNSCH PRN IV SEE LABEL COMMENTS; Start 03/16/17 at 11:00 Magnesium Sulfate 2 gm/Sodium Chloride 104 ml @ 50 mls/hr UNSCH PRN IV SEE LABEL COMMENTS; Start 03/16/17 at 11:00 Calcium Chloride/ Sodium Chloride (Calcium Chloride Inj/NS Inj) 110 ml @ 100 mls/hr UNSCH PRN IV SEE LABEL COMMENTS Last administered on 03/16/17 20:39; Start 03/16/17 at 11:00; Stop 03/17/17 at 08:59; Status DC Calcium Chloride 0.5 gm 0.5 gm UNSCH PRN IV SEE LABEL COMMENTS; Start 03/16/17 at 11:00; Stop 03/17/17 at 08:56; Status DC Insulin Human Regular/Sodium Chloride (NovoLIN R (IV INFUSION)/NS Inj) 100 ml @ 0 mls/hr TITRATE IV Last administered on 03/16/17 20:41; Start 03/16/17 at 12: 00; Stop 03/17/17 at 08:59; Status DC Dextrose 50 ml 50 ml UNSCH PRN IV PUSH HYPOGLYCEMIA-SEE COMMENTS; Start at 11:00; Stop 03/17/17 at 08:59; Status DC Cefazolin Sodium/ Dextrose (Ancef 2 Gm Premix) 50 ml @ 100 mls/hr Q8H IV Last administered on 03/17/17 08:17; Start 03/16/17 at 16:00; Stop 03/18/17 at 00:29 Albuterol/ Ipratropium (Duoneb Neb) 1 ampule Q6HR NEB NEB Last administered on 03/17/17 09:30; Start 03/16/17 at 16:00; Stop 03/17/17 at 09:34; Status DC Albuterol/ Ipratropium (Duoneb Neb) 1 ampule Q2HR NEB PRN NEB WHEEZING; Start 03/16/17 at 11:00 Racepinephrine (Racepinephrine 2.25% Neb) 0.5 ml UNSCH X1 PRN NEB STRIDOR; Start 03/16/17 at 11:00; Stop 03/16/17 at 11:35; Status DC Albuterol/ Ipratropium (Duoneb Neb) 1 ampule Q6HR WHILE AWAKE NEB NEB ; Start 03/17/17 at 14:00; Stop 03/19/17 at 13:59 Docusate Sodium (Colace) 100 mg BID PO Last administered on 03/17/17 10:58; Start 03/17/17 at 09:00 Multivitamins/ Minerals Therapeutic (Theragran M Tab) 1 tab DAILY PO Last administered on 03/17/17 09:00; Start 03/17/17 at 09:00 Magnesium Hydroxide (Milk Of Magnmarsha Liq) 30 ml DAILY PO Last administered on 03/17/17 10:58; Start 03/17/17 at 09:00 Bisacodyl (Dulcolax Supp) 10 mg UNSCH PRN RECTAL SEE LABEL COMMENTS; Start at 09:00; Stop 03/17/17 at 09:08; Status DC Polyethylene Glycol (Miralax) 17 gm DAILY PO ; Start 03/18/17 at 09:00 Sennosides (Senokot) 8.6 mg HS PO ; Start 03/17/17 at 21:00 Sodium Biphosphate/ Sodium Phosphate (Fleets Enema (Adult)) 133 ml UNSCH PRN RECTAL SEE LABEL COMMENTS; Start 03/17/17 at 09:00 Insulin Aspart (NovoLOG SUPPLEMENTAL SCALE) 1 02,06,10,14,18,22 SQ ; Start 03/17 at 10:00 Dextrose (D50w (Vial) Inj) 50 ml UNSCH PRN IV HYPOGLYCEMIA-SEE COMMENTS; Start 03/17/17 at 09:00 Glucagon (Glucagon Inj) 1 mg UNSCH PRN OTHER HYPOGLYCEMIA-SEE COMMENTS; Start 03/17/17 at 09:00 Metoprolol Tartrate (Lopressor) 12.5 mg Q12HR PO ; Start 03/17/17 at 21:00 Levothyroxine Sodium (Synthroid) 75 mcg DAILY@06 PO Last administered on 11:01; Start 03/17/17 at 09:45 Patient Own Medication PT OWN MED: NAMENDA... DAILY PO ; Start 03/17/17 at 10:00 ; Status Hold A/P Problem List: (1) Syncope ICD Code: R55 Status: Acute (2) Elevated troponin ICD Code: R74.8 Status: Acute Assessment and Plan 71-year-old male presented with syncopal episode most likely secondary to insulin 70 NSTEMI --Status post cardiac catheterization done on 03/11/2017 showing multi-vascular disease. - Status post Off-pump Coronary Artery Bypass Grafting x 2 with left internal mammary artery ([place]) to left anterior descending (LAD), reverse saphenous vein graft Diagonal 1, Left Leg Endoscopic Vein [place], and Intraoperative Vein Mapping on 03/16/[address] Dillard. -Postop management per cardiac vascular surgeon Dr Dillard -Due to labile blood pressure patient is on the dopamine drip. Once off dopamine drip he can be transferred to [facility]. Questionable hx of GI bleed a few weeks ago - No signs of GI bleed. Hemoglobin has been stable. -GI was consulted for clearance for cardiac bypass. GI stated patient can follow-up as outpatient for colonoscopy. DVT prophylaxis- SCD Discharge Planning Once patient is off the dopamine drip he can be transferred to [facility]. Problem Qualifiers (1) Syncope: Qualified Code: R55 - Syncope, unspecified syncope type Trang Casanova MD Mar 17, 2017 13:16
--- NOTE | 2017-03-17 13:55 | PD.CARD.PN ---
Subjective Subjective Remarks alert in nad Objective Vital Signs / I&O Vital Signs Date Time Temp Pulse Resp B/P Pulse Ox O2 Delivery O2 Flow Rate FiO2 03/17/17 11:05 78 03/17/17 11:05 99 Nasal Cannula 2.00 03/17/17 11:05 98.5 77 20 85/56 99 Arterial Line 03/17/17 11:00 73 03/17/17 07:30 94 Nasal Cannula 3.00 03/17/17 07:30 98.4 89 18 112/65 92 115/59 03/17/17 07:30 89 03/17/17 07:15 77 03/17/17 07:03 94 Nasal Cannula 2.00 03/17/17 04:30 94 Nasal Cannula 1.00 03/17/17 03:00 76 03/17/17 03:00 99.4 72 16 85/59 95 03/17/17 03:00 78 03/17/17 03:00 96 Nasal Cannula 1.00 03/16/17 23:00 83 03/16/17 23:00 97 Nasal Cannula 3.00 03/16/17 23:00 86 03/16/17 23:00 99.0 82 20 102/64 97 115/55 03/16/17 21:20 Nasal Cannula 3.00 03/16/17 19:00 97.9 77 16 107/67 95 113/62 03/16/17 19:00 95 Nasal Cannula 3.00 03/16/17 19:00 77 03/16/17 19:00 73 03/16/17 16:16 62 03/16/17 16:16 98.3 59 19 87/53 97 93/49 I/O 03/16/17 03/16/17 03/16/17 03/17/17 03/17/17 03/17/17 07:00 15:00 23:00 07:00 15:00 23:00 Intake Total 240 ml 645 ml 1773 ml Output Total 500 ml 1200 ml 800 ml Balance -260 ml -555 ml 973 ml Intake Oral 240 ml 95 ml 240 ml IV Total 550 ml 1033 ml Albumin 500 ml Output Urine Total 500 ml 800 ml 570 ml Chest Tube Drainage Total 400 ml 230 ml # Voids 2 # Bowel Movements 1 0 Laboratory GENERAL: SKIN: Warm and dry. HEAD: Normocephalic. EYES: No scleral icterus. No injection or drainage. NECK: Supple, trachea midline. No JVD or lymphadenopathy. CARDIOVASCULAR: Regular rate and rhythm without murmurs, gallops, or rubs. RESPIRATORY: Breath sounds equal bilaterally. No accessory muscle use. GASTROINTESTINAL: Abdomen soft, non-tender, nondistended. MUSCULOSKELETAL: No cyanosis, or edema. BACK: Nontender without obvious deformity. No CVA tenderness. Laboratory Tests Test 03/17/17 03:57 White Blood Count 5.7 TH/MM3 Red Blood Count 2.55 MIL/MM3 Hemoglobin 8.1 GM/DL Hematocrit 23.7 % Mean Corpuscular Volume 92.7 FL Mean Corpuscular Hemoglobin 31.6 PG Mean Corpuscular Hemoglobin 34.1 % Concent Red Cell Distribution Width 13.1 % Platelet Count 200 TH/MM3 Mean Platelet Volume 9.2 FL Sodium Level 139 MEQ/L Potassium Level 4.3 MEQ/L Chloride Level 105 MEQ/L Carbon Dioxide Level 27.2 MEQ/L Anion Gap 7 MEQ/L Blood Urea Nitrogen 19 MG/DL Creatinine 0.86 MG/DL Estimat Glomerular Filtration 87 ML/MIN Rate Random Glucose 101 MG/DL Calcium Level 8.2 MG/DL Magnesium Level 2.0 MG/DL Assessment and Plan Problem List: (1) CAD (coronary artery disease) (2) S/P CABG x 2 (3) Elevated troponin (4) Syncope (5) GI bleed (6) NSTEMI (non-ST elevated myocardial infarction) Assessment and Plan 1.) CAD - pod#1, opcabg lad and diag, continue lipitor, asa, lopressor, clinically improving Problem Qualifiers (1) Syncope: Qualified Code: R55 - Syncope, unspecified syncope type (2) GI bleed: Qualified Code: K92.2 - Gastrointestinal hemorrhage, unspecified gastrointestinal hemorrhage type Nader Dennis MD Mar 17, 2017 13:55
--- NOTE | 2017-03-17 16:55 | EKG ---
Date Performed: 03/17/2017 Time Performed: 05:09:06 PTAGE: 71 years EKG: Sinus rhythm with PAC(s). Inferior infarct - age undetermined Possible anterior infarct - age undetermined Low QR S voltages in precordial leads Abnormal ECG PREVIOUS TRACING : 03/12/2017 05.40 Compared to previous tracing, the patient is no longer james ycardic. DOCTOR: Alisson Cai Interpretating Date/Time 03/17/2017 16:51:04
[2017-03-17] MEDS: ATORVASTATIN 80 MG TAB PO SCH (20:52)
[2017-03-17] MEDS: SENNOSIDES 8.6 MG TAB PO SCH (20:52)
[2017-03-18] VITALS (23 sets, daily range): BP systolic 94–126; BP diastolic 60–79; PULSE 62–88; RESP 16–20; TEMP 97.9–98.9; O2SAT 91–97
[2017-03-18] MEDS: INSULIN ASPART SUPPLEMENTAL SCALE SQ SCH ×6 (02:00→21:00)
[2017-03-18 05:04] LABS: AUTOMATED NEUTROPHIL # 4.4 TH/MM3 (1.8-7.7); BASOPHIL % 0.4 % (0.0-2.0); EOSINOPHIL # 0.1 TH/MM3 (0-0.4); EOSINOPHIL % 0.9 % (0.0-4.0); HEMATOCRIT 23.3 % (39.0-51.0); HEMO FLAGS DIFF FINAL; LYMPHOCYTE # 0.7 TH/MM3 (1.0-4.8); MEAN CELL VOLUME 92.2 FL (80.0-100.0); MEAN CORPUSCULAR HGB CONC 34.7 % (32.0-36.0); MONO % 9.4 % (0.0-8.0); NEUT % 76.3 % (16.0-70.0); PLATELET COUNT 200 TH/MM3 (150-450); RED BLOOD COUNT 2.53 MIL/MM3 (4.50-5.90); RED CELL DISTRIBUTION WIDTH 13.1 % (11.6-17.2); WHITE BLOOD COUNT 5.8 TH/MM3 (4.0-11.0)
[2017-03-18] MEDS: PANTOPRAZOLE SOD 40 MG DELAYED RELEASE TAB PO SCH (05:29)
[2017-03-18] MEDS: LEVOTHYROXINE SODIUM 75 MCG TAB PO SCH (05:29)
[2017-03-18 05:41] LABS: BICARBONATE 29.6 MEQ/L (21.0-32.0); MAGNESIUM 2.1 MG/DL (1.5-2.5); POTASSIUM 4.1 MEQ/L (3.5-5.1)
[2017-03-18] MEDS: KETOROLAC TROMETHAMINE 30 MG/ML (IVP) VIAL IV PUSH PRN (08:45)
[2017-03-18] MEDS: DOCUSATE SODIUM 100 MG CAP PO SCH ×2 (08:45→21:53)
[2017-03-18] MEDS: AMIODARONE 200 MG TAB PO SCH ×2 (08:45→21:53)
[2017-03-18] MEDS: MAGNESIUM HYDROXIDE SUSP 30 ML CUP PO SCH (08:45)
[2017-03-18] MEDS: METOPROLOL TARTRATE 25 MG TAB PO SCH ×2 (08:45→21:54)
[2017-03-18] MEDS: POLYETHYLENE GLYCOL 17 GM PKG PO SCH (08:45)
[2017-03-18] MEDS: SODIUM CHLORIDE 0.9% FLUSH 10 ML FLUSH IV FLUSH SCH ×2 (08:46→21:55)
[2017-03-18] MEDS: MULTIVITAMINS/MINERALS THERAPEUTIC TAB PO SCH (08:46)
[2017-03-18] MEDS: CLOPIDOGREL 75 MG TAB PO SCH (08:46)
[2017-03-18] MEDS: ASPIRIN 81 MG CHEW TAB PO SCH (08:46)
[2017-03-18] MEDS: RESP: ALBUTEROL 2.5 MG/IPRATROPIUM 0.5 MG NEB (SCH) NEB ×3 (08:54→20:20)
--- NOTE | 2017-03-18 14:22 | PD.CARD.PN ---
Subjective Subjective Remarks alert in nad Objective Vital Signs / I&O Vital Signs Date Time Temp Pulse Resp B/P Pulse Ox O2 Delivery O2 Flow Rate FiO2 03/18/17 12:00 Nasal Cannula 2.00 03/18/17 12:00 66 03/18/17 12:00 98.1 72 16 99/66 97 03/18/17 11:00 66 03/18/17 10:00 74 03/18/17 09:45 16 03/18/17 09:00 68 03/18/17 08:54 96 Nasal Cannula 2.00 03/18/17 08:00 Nasal Cannula 2.00 03/18/17 08:00 67 03/18/17 08:00 74 03/18/17 08:00 97.9 75 16 119/79 96 03/18/17 07:00 62 03/18/17 04:00 98.9 71 20 96 104/60 03/18/17 03:39 74 03/18/17 03:36 97 Nasal Cannula 2.00 03/18/17 03:14 74 03/18/17 00:00 98.9 88 20 126/67 96 03/17/17 23:58 82 03/17/17 23:58 96 Nasal Cannula 2.00 03/17/17 23:30 82 03/17/17 20:00 86 03/17/17 20:00 99.8 84 18 102/62 95 03/17/17 20:00 92 Nasal Cannula 2.00 03/17/17 19:45 16 03/17/17 19:44 93 Nasal Cannula 2.00 03/17/17 19:27 95 03/17/17 15:23 99 Nasal Cannula 2.00 03/17/17 15:23 85 03/17/17 15:23 98.3 85 20 115/64 99 03/17/17 15:23 78 03/17/17 15:23 85 I/O 03/17/17 03/17/17 03/17/17 03/18/17 03/18/17 03/18/17 07:00 15:00 23:00 07:00 15:00 23:00 Intake Total 1773 ml 1589 ml 290 ml Output Total 800 ml 1550 ml 1170 ml Balance 973 ml 39 ml -880 ml Intake Oral 240 ml 1150 ml 240 ml IV Total 1033 ml 439 ml 50 ml Albumin 500 ml Output Urine Total 570 ml 1300 ml 1000 ml Chest Tube Drainage Total 230 ml 250 ml 170 ml # Voids 5 # Bowel Movements 0 0 0 Physical Exam GENERAL: SKIN: Warm and dry. HEAD: Normocephalic. EYES: No scleral icterus. No injection or drainage. NECK: Supple, trachea midline. No JVD or lymphadenopathy. CARDIOVASCULAR: Regular rate and rhythm without murmurs, gallops, or rubs. RESPIRATORY: Breath sounds equal bilaterally. No accessory muscle use. GASTROINTESTINAL: Abdomen soft, non-tender, nondistended. MUSCULOSKELETAL: No cyanosis, or edema. BACK: Nontender without obvious deformity. No CVA tenderness. Laboratory Laboratory Tests Test 03/18/17 04:40 White Blood Count 5.8 TH/MM3 Red Blood Count 2.53 MIL/MM3 Hemoglobin 8.1 GM/DL Hematocrit 23.3 % Mean Corpuscular Volume 92.2 FL Mean Corpuscular Hemoglobin 32.0 PG Mean Corpuscular Hemoglobin 34.7 % Concent Red Cell Distribution Width 13.1 % Platelet Count 200 TH/MM3 Mean Platelet Volume 9.0 FL Neutrophils (%) (Auto) 76.3 % Lymphocytes (%) (Auto) 13.0 % Monocytes (%) (Auto) 9.4 % Eosinophils (%) (Auto) 0.9 % Basophils (%) (Auto) 0.4 % Neutrophils # (Auto) 4.4 TH/MM3 Lymphocytes # (Auto) 0.7 TH/MM3 Monocytes # (Auto) 0.5 TH/MM3 Eosinophils # (Auto) 0.1 TH/MM3 Basophils # (Auto) 0.0 TH/MM3 CBC Comment DIFF FINAL Differential Comment Sodium Level 141 MEQ/L Potassium Level 4.1 MEQ/L Chloride Level 106 MEQ/L Carbon Dioxide Level 29.6 MEQ/L Anion Gap 5 MEQ/L Blood Urea Nitrogen 25 MG/DL Creatinine 1.02 MG/DL Estimat Glomerular Filtration 72 ML/MIN Rate Random Glucose 88 MG/DL Calcium Level 8.0 MG/DL Magnesium Level 2.1 MG/DL Assessment and Plan Problem List: (1) CAD (coronary artery disease) (2) S/P CABG x 2 (3) Elevated troponin (4) Syncope (5) GI bleed (6) NSTEMI (non-ST elevated myocardial infarction) Assessment and Plan 1.) CAD - pod#2, opcabg lad and diag, continue lipitor, asa, lopressor, clinically improving Problem Qualifiers (1) Syncope: Qualified Code: R55 - Syncope, unspecified syncope type (2) GI bleed: Qualified Code: K92.2 - Gastrointestinal hemorrhage, unspecified gastrointestinal hemorrhage type Nader Dennis MD Mar 18, 2017 14:22
--- NOTE | 2017-03-18 14:43 | PD.CAR.PN ---
CVT Progress Note Subjective/Hospital Course: 71/ mal;e hx CAD prior PCI LAD, diagonal. Treated with xarelto and ASA post pci , recently developed GI Bleed / anticoagulation was stopped. He did not see GI as outpt / presented to ED syncopal episode + trop . Admitted with NSTEMI underwent cardia cath by Dr Dennis / 80% LAD, 80% Diagonal , 30% RCA . EF 60% . We were consulted for Coronary artery bypass grafting He was seen by GI/ Occult blood + stools , per GI probable anorectal disease 1. OB + stools--prob an anorectal disease, rectal bleed resolved , stable anemia , recommend to proceed with CABG PMH: HLP, CAD prior PCT, dementia on namenda, paroxysmal atrial fib 03/13 no chest pain or SOB await daughter to sign consent for surgery may need phone consent 03/15 CP free OR in am 03/16 1. Off-pump Coronary Artery Bypass Grafting x 2 with left internal mammary artery ([place]) to left anterior descending (LAD), reverse saphenous vein graft Diagonal 1 2. Left Leg Endoscopic Vein [place] 3. Intraoperative Vein Mapping. crystalloid 3100cc/ EBL 250cc, 250cc cell saver extubated after surgery 03/17 BP labile last pm drained 230cc/ 12 hrs from chest tube on low dose dopamine, weaning off slowly eval for transfer to stepdown later today 03/18 pt apparently tried to get up last night without any assistance, now on bed alarm BP stable , on low dose BB , will need rehab at discharge chest tube drained 170/ 12 hrs , no air leak Objective: Vital Signs Date Time Temp Pulse Resp B/P Pulse Ox O2 Delivery O2 Flow Rate FiO2 03/18/17 12:00 Nasal Cannula 2.00 03/18/17 12:00 66 03/18/17 12:00 98.1 72 16 99/66 97 03/18/17 11:00 66 03/18/17 10:00 74 03/18/17 09:45 16 03/18/17 09:00 68 03/18/17 08:54 96 Nasal Cannula 2.00 03/18/17 08:00 Nasal Cannula 2.00 03/18/17 08:00 67 03/18/17 08:00 74 03/18/17 08:00 97.9 75 16 119/79 96 03/18/17 07:00 62 03/18/17 04:00 98.9 71 20 96 104/60 03/18/17 03:39 74 03/18/17 03:36 97 Nasal Cannula 2.00 03/18/17 03:14 74 03/18/17 00:00 98.9 88 20 126/67 96 03/17/17 23:58 82 03/17/17 23:58 96 Nasal Cannula 2.00 03/17/17 23:30 82 03/17/17 20:00 86 03/17/17 20:00 99.8 84 18 102/62 95 03/17/17 20:00 92 Nasal Cannula 2.00 03/17/17 19:45 16 03/17/17 19:44 93 Nasal Cannula 2.00 03/17/17 19:27 95 03/17/17 15:23 99 Nasal Cannula 2.00 03/17/17 15:23 85 03/17/17 15:23 98.3 85 20 115/64 99 03/17/17 15:23 78 03/17/17 15:23 85 Labs: Laboratory Tests Test 03/18/17 04:40 White Blood Count 5.8 TH/MM3 (4.0-11.0) Red Blood Count 2.53 MIL/MM3 (4.50-5.90) Hemoglobin 8.1 GM/DL (13.0-17.0) Hematocrit 23.3 % (39.0-51.0) Mean Corpuscular Volume 92.2 FL (80.0-100.0) Mean Corpuscular Hemoglobin 32.0 PG (27.0-34.0) Mean Corpuscular Hemoglobin 34.7 % Concent (32.0-36.0) Red Cell Distribution Width 13.1 % (11.6-17.2) Platelet Count 200 TH/MM3 (150-450) Mean Platelet Volume 9.0 FL (7.0-11.0) Neutrophils (%) (Auto) 76.3 % (16.0-70.0) Lymphocytes (%) (Auto) 13.0 % (9.0-44.0) Monocytes (%) (Auto) 9.4 % (0.0-8.0) Eosinophils (%) (Auto) 0.9 % (0.0-4.0) Basophils (%) (Auto) 0.4 % (0.0-2.0) Neutrophils # (Auto) 4.4 TH/MM3 (1.8-7.7) Lymphocytes # (Auto) 0.7 TH/MM3 (1.0-4.8) Monocytes # (Auto) 0.5 TH/MM3 (0-0.9) Eosinophils # (Auto) 0.1 TH/MM3 (0-0.4) Basophils # (Auto) 0.0 TH/MM3 (0-0.2) CBC Comment DIFF FINAL Differential Comment Sodium Level 141 MEQ/L (136-145) Potassium Level 4.1 MEQ/L (3.5-5.1) Chloride Level 106 MEQ/L (98-107) Carbon Dioxide Level 29.6 MEQ/L (21.0-32.0) Anion Gap 5 MEQ/L (5-15) Blood Urea Nitrogen 25 MG/DL (7-18) Creatinine 1.02 MG/DL (0.60-1.30) Estimat Glomerular Filtration 72 ML/MIN (>89) Rate Random Glucose 88 MG/DL (74-106) Calcium Level 8.0 MG/DL (8.5-10.1) Magnesium Level 2.1 MG/DL (1.5-2.5) Result Diagram: 03/18/1743903/18/17439 Telemetry: NSR (1) CAD (coronary artery disease) (2) S/P CABG x 2 Plan: ASA, Plavix , BB statin OOB, ambulate , pulm toileting nebs, ezpap , acapella cm to eval for rehab bed alarm for safety (3) Syncope (4) GI bleed Plan: on PPI / monitor H&H (5) NSTEMI (non-ST elevated myocardial infarction) Problem Qualifiers (1) Syncope: Qualified Code: R55 - Syncope, unspecified syncope type (2) GI bleed: Qualified Code: K92.2 - Gastrointestinal hemorrhage, unspecified gastrointestinal hemorrhage type Jalyn Underwood Mar 18, 2017 14:43
[2017-03-18] MEDS: FERROUS SULFATE 325 MG (65 MG ELEMENTAL IRON) TAB PO SCH (15:22)
[2017-03-18] MEDS: ACETAMINOPHEN/HYDROcodone 325 MG/5 MG TAB PO PRN (18:34)
[2017-03-18] MEDS: SENNOSIDES 8.6 MG TAB PO SCH (21:53)
[2017-03-18] MEDS: ATORVASTATIN 80 MG TAB PO SCH (21:53)
[2017-03-19] VITALS (27 sets, daily range): BP systolic 101–128; BP diastolic 65–85; PULSE 57–88; RESP 16–20; TEMP 98.2–99; O2SAT 95–97
[2017-03-19] MEDS: PANTOPRAZOLE SOD 40 MG DELAYED RELEASE TAB PO SCH (06:04)
[2017-03-19] MEDS: LEVOTHYROXINE SODIUM 75 MCG TAB PO SCH (06:04)
[2017-03-19] MEDS: INSULIN ASPART SUPPLEMENTAL SCALE SQ SCH ×4 (06:04→21:00)
[2017-03-19] MEDS: RESP: ALBUTEROL 2.5 MG/IPRATROPIUM 0.5 MG NEB (SCH) NEB (08:00)
[2017-03-19] MEDS: MAGNESIUM HYDROXIDE SUSP 30 ML CUP PO SCH (08:12)
[2017-03-19] MEDS: METOPROLOL TARTRATE 25 MG TAB PO SCH ×2 (08:13→21:22)
[2017-03-19] MEDS: MULTIVITAMINS/MINERALS THERAPEUTIC TAB PO SCH (08:13)
[2017-03-19] MEDS: ASPIRIN 81 MG CHEW TAB PO SCH (08:13)
[2017-03-19] MEDS: SODIUM CHLORIDE 0.9% FLUSH 10 ML FLUSH IV FLUSH SCH ×2 (08:13→21:22)
[2017-03-19] MEDS: DOCUSATE SODIUM 100 MG CAP PO SCH ×2 (08:13→21:22)
[2017-03-19] MEDS: POLYETHYLENE GLYCOL 17 GM PKG PO SCH (08:13)
[2017-03-19] MEDS: AMIODARONE 200 MG TAB PO SCH ×2 (08:13→21:21)
[2017-03-19] MEDS: CLOPIDOGREL 75 MG TAB PO SCH (08:13)
[2017-03-19] MEDS: ACETAMINOPHEN/HYDROcodone 325 MG/5 MG TAB PO PRN (08:14)
--- NOTE | 2017-03-19 09:11 | PD.CAR.PN ---
CVT Progress Note Subjective/Hospital Course: 71/ mal;e hx CAD prior PCI LAD, diagonal. Treated with xarelto and ASA post pci , recently developed GI Bleed / anticoagulation was stopped. He did not see GI as outpt / presented to ED syncopal episode + trop . Admitted with NSTEMI underwent cardia cath by Dr Dennis / 80% LAD, 80% Diagonal , 30% RCA . EF 60% . We were consulted for Coronary artery bypass grafting He was seen by GI/ Occult blood + stools , per GI probable anorectal disease 1. OB + stools--prob an anorectal disease, rectal bleed resolved , stable anemia , recommend to proceed with CABG PMH: HLP, CAD prior PCT, dementia on namenda, paroxysmal atrial fib 03/13 no chest pain or SOB await daughter to sign consent for surgery may need phone consent 03/15 CP free OR in am 03/16 1. Off-pump Coronary Artery Bypass Grafting x 2 with left internal mammary artery ([place]) to left anterior descending (LAD), reverse saphenous vein graft Diagonal 1 2. Left Leg Endoscopic Vein [place] 3. Intraoperative Vein Mapping. crystalloid 3100cc/ EBL 250cc, 250cc cell saver extubated after surgery 03/17 BP labile last pm drained 230cc/ 12 hrs from chest tube on low dose dopamine, weaning off slowly eval for transfer to stepdown later today 03/18 pt apparently tried to get up last night without any assistance, now on bed alarm BP stable , on low dose BB , will need rehab at discharge chest tube drained 170/ 12 hrs , no air leak 03/[address] Ambulate Discharge planning Objective: Vital Signs Date Time Temp Pulse Resp B/P Pulse Ox O2 Delivery O2 Flow Rate FiO2 03/19/17 08:29 95 03/19/17 08:00 Room Air 03/19/17 08:00 85 03/19/17 06:15 68 03/19/17 05:15 73 03/19/17 04:10 95 Room Air 03/19/17 04:10 81 03/19/17 04:10 71 03/19/17 04:10 98.4 71 18 95 03/19/17 03:47 74 03/19/17 02:28 70 03/19/17 01:00 72 03/19/17 00:20 98.6 85 20 122/77 96 03/19/17 00:20 96 Room Air 03/19/17 00:20 85 03/19/17 00:00 72 03/18/17 23:00 81 03/18/17 22:00 72 03/18/17 21:00 78 03/18/17 20:22 91 03/18/17 20:14 95 Room Air 03/18/17 20:14 98.6 77 18 106/73 95 03/18/17 20:14 77 03/18/17 20:00 80 03/18/17 19:00 78 03/18/17 18:00 82 03/18/17 17:00 72 03/18/17 16:00 85 03/18/17 16:00 98.2 80 16 94/66 96 03/18/17 16:00 Nasal Cannula 2.00 03/18/17 15:00 70 03/18/17 14:00 62 03/18/17 13:00 64 03/18/17 12:00 Nasal Cannula 2.00 03/18/17 12:00 66 03/18/17 12:00 98.1 72 16 99/66 97 03/18/17 11:00 66 03/18/17 10:00 74 03/18/17 09:45 16 Result Diagram: 03/18/170 03/18/17439 (1) CAD (coronary artery disease) (2) S/P CABG x 2 Plan: ASA, Plavix , BB statin OOB, ambulate , pulm toileting nebs, ezpap , acapella cm to eval for rehab bed alarm for safety (3) Syncope (4) GI bleed Plan: on PPI / monitor H&H (5) NSTEMI (non-ST elevated myocardial infarction) Problem Qualifiers (1) Syncope: Qualified Code: R55 - Syncope, unspecified syncope type (2) GI bleed: Qualified Code: K92.2 - Gastrointestinal hemorrhage, unspecified gastrointestinal hemorrhage type Lourdes Dillard MD Mar 19, 2017 09:11
[2017-03-19] MEDS: FERROUS SULFATE 325 MG (65 MG ELEMENTAL IRON) TAB PO SCH ×2 (11:15→16:16)
--- NOTE | 2017-03-19 13:55 | PD.CARD.PN ---
Subjective Subjective Remarks alert in nad Objective Vital Signs / I&O Vital Signs Date Time Temp Pulse Resp B/P Pulse Ox O2 Delivery O2 Flow Rate FiO2 03/19/17 12:00 57 03/19/17 12:00 Room Air 03/19/17 12:00 98.4 60 16 101/71 95 03/19/17 11:00 58 03/19/17 10:00 62 03/19/17 09:37 16 03/19/17 09:00 80 03/19/17 08:29 95 03/19/17 08:00 Room Air 03/19/17 08:00 98.6 88 16 112/74 95 03/19/17 08:00 85 03/19/17 07:00 64 03/19/17 06:15 68 03/19/17 05:15 73 03/19/17 04:10 95 Room Air 03/19/17 04:10 81 03/19/17 04:10 71 03/19/17 04:10 98.4 71 18 95 03/19/17 03:47 74 03/19/17 02:28 70 03/19/17 01:00 72 03/19/17 00:20 98.6 85 20 122/77 96 03/19/17 00:20 96 Room Air 03/19/17 00:20 85 03/19/17 00:00 72 03/18/17 23:00 81 03/18/17 22:00 72 03/18/17 21:00 78 03/18/17 20:22 91 03/18/17 20:14 95 Room Air 03/18/17 20:14 98.6 77 18 106/73 95 03/18/17 20:14 77 03/18/17 20:00 80 03/18/17 19:00 78 03/18/17 18:00 82 03/18/17 17:00 72 03/18/17 16:00 85 03/18/17 16:00 98.2 80 16 94/66 96 03/18/17 16:00 Nasal Cannula 2.00 03/18/17 15:00 70 03/18/17 14:00 62 I/O 03/18/17 03/18/17 03/18/17 03/19/17 03/19/17 03/19/17 07:00 15:00 23:00 07:00 15:00 23:00 Intake Total 290 ml 720 ml 480 ml Output Total 1170 ml 920 ml 1555 ml Balance -880 ml -200 ml -1075 ml Intake Oral 240 ml 720 ml 480 ml IV Total 50 ml Output Urine Total 1000 ml 650 ml 1425 ml Chest Tube Drainage Total 170 ml 270 ml 130 ml # Voids 5 1 4 # Bowel Movements 0 1 0 Physical Exam GENERAL: SKIN: Warm and dry. HEAD: Normocephalic. EYES: No scleral icterus. No injection or drainage. NECK: Supple, trachea midline. No JVD or lymphadenopathy. CARDIOVASCULAR: Regular rate and rhythm without murmurs, gallops, or rubs. RESPIRATORY: Breath sounds equal bilaterally. No accessory muscle use. GASTROINTESTINAL: Abdomen soft, non-tender, nondistended. MUSCULOSKELETAL: No cyanosis, or edema. BACK: Nontender without obvious deformity. No CVA tenderness. Assessment and Plan Problem List: (1) CAD (coronary artery disease) (2) S/P CABG x 2 (3) Syncope (4) GI bleed (5) NSTEMI (non-ST elevated myocardial infarction) Assessment and Plan 1.) CAD - pod#3, opcabg lad and diag, continue lipitor, asa, lopressor, clinically improving, chest tube out Problem Qualifiers (1) Syncope: Qualified Code: R55 - Syncope, unspecified syncope type (2) GI bleed: Qualified Code: K92.2 - Gastrointestinal hemorrhage, unspecified gastrointestinal hemorrhage type Nader Dennis MD Mar 19, 2017 13:55
[2017-03-19] MEDS: ATORVASTATIN 80 MG TAB PO SCH (21:21)
[2017-03-19] MEDS: SENNOSIDES 8.6 MG TAB PO SCH (21:22)
[2017-03-20] VITALS (26 sets, daily range): BP systolic 106–124; BP diastolic 62–86; PULSE 56–79; RESP 16–18; TEMP 98.5–99; O2SAT 93–100
[2017-03-20] MEDS: PANTOPRAZOLE SOD 40 MG DELAYED RELEASE TAB PO SCH (06:10)
[2017-03-20] MEDS: LEVOTHYROXINE SODIUM 75 MCG TAB PO SCH (06:10)
[2017-03-20] MEDS: INSULIN ASPART SUPPLEMENTAL SCALE SQ SCH ×4 (06:13→21:00)
[2017-03-20] MEDS: CLOPIDOGREL 75 MG TAB PO SCH (08:58)
[2017-03-20] MEDS: MULTIVITAMINS/MINERALS THERAPEUTIC TAB PO SCH (08:58)
[2017-03-20] MEDS: DOCUSATE SODIUM 100 MG CAP PO SCH ×2 (08:58→20:56)
[2017-03-20] MEDS: MAGNESIUM HYDROXIDE SUSP 30 ML CUP PO SCH (08:58)
[2017-03-20] MEDS: AMIODARONE 200 MG TAB PO SCH ×2 (08:59→20:56)
[2017-03-20] MEDS: ASPIRIN 81 MG CHEW TAB PO SCH (08:59)
[2017-03-20] MEDS: METOPROLOL TARTRATE 25 MG TAB PO SCH ×2 (08:59→20:56)
[2017-03-20] MEDS: POLYETHYLENE GLYCOL 17 GM PKG PO SCH (08:59)
[2017-03-20] MEDS: SODIUM CHLORIDE 0.9% FLUSH 10 ML FLUSH IV FLUSH SCH ×2 (09:00→20:55)
--- NOTE | 2017-03-20 09:55 | PD.CARD.PN ---
Subjective Subjective Remarks alert in nad Objective Vital Signs / I&O Vital Signs Date Time Temp Pulse Resp B/P Pulse Ox O2 Delivery O2 Flow Rate FiO2 03/20/17 08:30 98.6 77 16 118/82 93 03/20/17 08:30 77 03/20/17 06:00 62 03/20/17 05:00 70 03/20/17 04:00 70 03/20/17 04:00 98.8 69 16 114/69 94 03/20/17 03:00 66 03/20/17 02:00 69 03/20/17 01:00 79 03/20/17 00:00 99.0 73 18 124/76 95 03/20/17 00:00 76 03/19/17 23:00 76 03/19/17 22:00 80 03/19/17 21:00 84 03/19/17 20:00 99.0 85 18 109/65 96 03/19/17 20:00 96 Room Air 03/19/17 20:00 72 03/19/17 19:54 97 21 03/19/17 19:00 74 03/19/17 18:00 80 03/19/17 17:00 62 03/19/17 16:00 98.2 61 16 128/85 97 03/19/17 16:00 59 03/19/17 16:00 Room Air 03/19/17 15:00 58 03/19/17 14:00 70 03/19/17 13:00 88 03/19/17 12:00 57 03/19/17 12:00 Room Air 03/19/17 12:00 98.4 60 16 101/71 95 03/19/17 11:00 58 03/19/17 10:00 62 I/O 03/19/17 03/19/17 03/19/17 03/20/17 03/20/17 03/20/17 07:00 15:00 23:00 07:00 15:00 23:00 Intake Total 480 ml 520 ml 720 ml Output Total 1555 ml 675 ml 1850 ml Balance -1075 ml -155 ml -1130 ml Intake Oral 480 ml 520 ml 720 ml Output Urine Total 1425 ml 675 ml 1850 ml Chest Tube Drainage Total 130 ml # Voids 4 # Bowel Movements 0 1 Physical Exam GENERAL: SKIN: Warm and dry. HEAD: Normocephalic. EYES: No scleral icterus. No injection or drainage. NECK: Supple, trachea midline. No JVD or lymphadenopathy. CARDIOVASCULAR: Regular rate and rhythm without murmurs, gallops, or rubs. RESPIRATORY: Breath sounds equal bilaterally. No accessory muscle use. GASTROINTESTINAL: Abdomen soft, non-tender, nondistended. MUSCULOSKELETAL: No cyanosis, or edema. BACK: Nontender without obvious deformity. No CVA tenderness. Assessment and Plan Problem List: (1) CAD (coronary artery disease) (2) S/P CABG x 2 (3) Syncope (4) GI bleed (5) NSTEMI (non-ST elevated myocardial infarction) Assessment and Plan 1.) CAD - pod#4, opcabg lad and diag, continue lipitor, asa, lopressor, clinically improving, chest tube out, advised patient to f/u with me in office next week Problem Qualifiers (1) Syncope: Qualified Code: R55 - Syncope, unspecified syncope type (2) GI bleed: Qualified Code: K92.2 - Gastrointestinal hemorrhage, unspecified gastrointestinal hemorrhage type Nader Dennis MD Mar 20, 2017 09:55
[2017-03-20] MEDS: FERROUS SULFATE 325 MG (65 MG ELEMENTAL IRON) TAB PO SCH ×2 (12:25→17:37)
--- NOTE | 2017-03-20 14:45 | HHI.FF ---
Face to Face Verification Diagnosis: (1) CAD (coronary artery disease) (2) NSTEMI (non-ST elevated myocardial infarction) Home Health Nursing Order: Medical education Wound care and dressing changes Nursing assessment with vital signs I have seen patient Julio Short on 03/20/17. My clinical findings support the need for the requested home health care services because: Ltd mobility - disease progression Deconditioned w/ increased weakness I certify that my clinical findings support that this patient is homebound because: Post-op weakness Lourdes Dillard MD Mar 20, 2017 14:45
[2017-03-20] MEDS ORDERED: METO25TA3 PO (15:02)
[2017-03-20] MEDS ORDERED: FERR325T20 PO (15:02)
[2017-03-20] MEDS ORDERED: PLAV75TA29 PO (15:02)
[2017-03-20] MEDS ORDERED: ASPI81CH25 PO (15:02)
[2017-03-20] MEDS ORDERED: AMIO200T PO (15:02)
[2017-03-20] MEDS ORDERED: DOCU1CAP39 PO (15:02)
[2017-03-20] MEDS ORDERED: HYDR-3516 PO (15:02)
--- NOTE | 2017-03-20 15:04 | HHI.DS ---
Discharge Summary Admission Date Mar 11, 2017 at 15:22 Discharge Date: Mar 20, 2017 Admitting Diagnosis acute syncope, positive troponin, GI bleed (1) Syncope (2) Elevated troponin CBC/BMP: 03/18/17 0440 03/18/17 0440 Significant Findings Laboratory Tests Test 03/18/17 04:40 Red Blood Count 2.53 MIL/MM3 (4.50-5.90) Hemoglobin 8.1 GM/DL (13.0-17.0) Hematocrit 23.3 % (39.0-51.0) Neutrophils (%) (Auto) 76.3 % (16.0-70.0) Monocytes (%) (Auto) 9.4 % (0.0-8.0) Lymphocytes # (Auto) 0.7 TH/MM3 (1.0-4.8) Blood Urea Nitrogen 25 MG/DL (7-18) Estimat Glomerular Filtration 72 ML/MIN (>89) Rate Calcium Level 8.0 MG/DL (8.5-10.1) Hospital Course 71/ mal;e hx CAD prior PCI LAD, diagonal. Treated with xarelto and ASA post pci , recently developed GI Bleed / anticoagulation was stopped. He did not see GI as outpt / presented to ED syncopal episode + trop . Admitted with NSTEMI underwent cardia cath by Dr Dennis / 80% LAD, 80% Diagonal , 30% RCA . EF 60% . We were consulted for Coronary artery bypass grafting He was seen by GI/ Occult blood + stools , per GI probable anorectal disease 1. OB + stools--prob an anorectal disease, rectal bleed resolved , stable anemia , recommend to proceed with CABG PMH: HLP, CAD prior PCT, dementia on namenda, paroxysmal atrial fib 03/13 no chest pain or SOB await daughter to sign consent for surgery may need phone consent 03/15 CP free OR in am 03/16 1. Off-pump Coronary Artery Bypass Grafting x 2 with left internal mammary artery ([place]) to left anterior descending (LAD), reverse saphenous vein graft Diagonal 1 2. Left Leg Endoscopic Vein [place] 3. Intraoperative Vein Mapping. crystalloid 3100cc/ EBL 250cc, 250cc cell saver extubated after surgery 03/17 BP labile last pm drained 230cc/ 12 hrs from chest tube on low dose dopamine, weaning off slowly eval for transfer to stepdown later today 03/18 pt apparently tried to get up last night without any assistance, now on bed alarm BP stable , on low dose BB , will need rehab at discharge chest tube drained 170/ 12 hrs , no air leak 03/[address] Ambulate Discharge planning 03/20 D/C Home Discharge Disposition: Disch w/ Home Health Serv Discharge Instructions DIET: Follow Instructions for: Heart Healthy Diet Activities you can perform: Full Weight Bearing, Shower Only-No Bath, Shaving Activities to avoid: Lifting/Bending, Strenuous Activity, Driving Follow up Referrals: Cardiology with Nader Dennis MD PCP Follow-up with Stephen Ricks DO Surgical with Jalyn Underwood New Medications: Amiodarone (Amiodarone) 200 Mg Tab 200 MG PO Q12HR z Days 14 TAB Aspirin (Aspirin Low Strength) 81 Mg Chew 81 MG PO DAILY z Days 90 Ref 10 EA Clopidogrel (Plavix) 75 Mg Tab 75 MG PO DAILY z #90 Ref 10 TAB Docusate Sodium (Dok) 100 Mg Cap 100 MG PO BID Constipation Days 14 CAP Ferrous Sulfate (Ferosul) 325 Mg Tablet 325 MG PO BID@12,17 z Days 28 BOTTLE Hydrocodone-Acetaminophen (Hydrocodone-Acetaminophen) 5-325 mg Tab 1 TAB PO Q3H PRN PAIN SCALE 1 TO 5 #60 Ref 0 TAB Metoprolol Tartrate (Metoprolol Tartrate) 25 Mg Tab 12.5 MG PO Q12HR z Days 60 TAB Continued Medications: Atorvastatin (Lipitor) 80 Mg Tab 80 MG PO HS Cholesterol Management #30 Ref 0 TAB Levothyroxine (Levothyroxine) 75 Mcg Tab 75 MCG PO DAILY Thyroid #30 Ref 0 TAB Memantine Er (Namenda Xr) 21 Mg Caper 21 MG PO DAILY Alzheimer Disease #30 Ref 0 CAP Omeprazole (Omeprazole) 10 Mg Cap 0 PO DAILY #30 Ref 0 CAP Lourdes Dillard MD Mar 20, 2017 15:04
[2017-03-20] MEDS: ATORVASTATIN 80 MG TAB PO SCH (20:55)
[2017-03-20] MEDS: SENNOSIDES 8.6 MG TAB PO SCH (20:56)
[2017-03-21] VITALS (17 sets, daily range): BP systolic 102–115; BP diastolic 68–76; PULSE 54–73; RESP 18–20; TEMP 98.4–99; O2SAT 96–100
[2017-03-21] MEDS: PANTOPRAZOLE SOD 40 MG DELAYED RELEASE TAB PO SCH (06:08)
[2017-03-21] MEDS: LEVOTHYROXINE SODIUM 75 MCG TAB PO SCH (06:08)
[2017-03-21] MEDS: INSULIN ASPART SUPPLEMENTAL SCALE SQ SCH ×2 (06:13→11:00)
[2017-03-21] MEDS: SODIUM CHLORIDE 0.9% FLUSH 10 ML FLUSH IV FLUSH SCH (09:08)
[2017-03-21] MEDS: MAGNESIUM HYDROXIDE SUSP 30 ML CUP PO SCH (09:09)
[2017-03-21] MEDS: ASPIRIN 81 MG CHEW TAB PO SCH (09:09)
[2017-03-21] MEDS: CLOPIDOGREL 75 MG TAB PO SCH (09:09)
[2017-03-21] MEDS: MULTIVITAMINS/MINERALS THERAPEUTIC TAB PO SCH (09:09)
[2017-03-21] MEDS: AMIODARONE 200 MG TAB PO SCH (09:09)
[2017-03-21] MEDS: DOCUSATE SODIUM 100 MG CAP PO SCH (09:09)
[2017-03-21] MEDS: POLYETHYLENE GLYCOL 17 GM PKG PO SCH (09:10)
[2017-03-21] MEDS: METOPROLOL TARTRATE 25 MG TAB PO SCH (09:10)
--- NOTE | 2017-03-21 09:22 | PD.CARD.PN ---
Subjective Subjective Remarks alert in nad Objective Vital Signs / I&O Vital Signs Date Time Temp Pulse Resp B/P Pulse Ox O2 Delivery O2 Flow Rate FiO2 03/21/17 06:00 60 03/21/17 05:00 60 03/21/17 04:00 64 03/21/17 04:00 99.0 65 20 112/72 100 03/21/17 03:00 60 03/21/17 02:00 67 03/21/17 01:00 66 03/21/17 00:26 99.0 70 18 115/76 100 03/21/17 00:00 73 03/20/17 23:00 66 03/20/17 22:00 72 03/20/17 21:38 21 03/20/17 21:00 76 03/20/17 20:00 98.6 79 18 106/62 100 03/20/17 20:00 72 03/20/17 19:00 70 03/20/17 18:00 72 03/20/17 17:00 68 03/20/17 16:00 98.5 58 16 112/86 94 03/20/17 15:00 58 03/20/17 14:21 96 03/20/17 14:00 59 03/20/17 13:00 63 03/20/17 12:00 56 03/20/17 11:00 98.7 56 16 113/75 98 03/20/17 10:36 96 03/20/17 10:00 71 I/O 03/20/17 03/20/17 03/20/17 03/21/17 03/21/17 03/21/17 07:00 15:00 23:00 07:00 15:00 23:00 Intake Total 720 ml 1000 ml 480 ml Output Total 1850 ml 800 ml 575 ml Balance -1130 ml 200 ml -95 ml Intake Oral 720 ml 1000 ml 480 ml Output Urine Total 1850 ml 800 ml 575 ml # Bowel Movements 1 Physical Exam GENERAL: SKIN: Warm and dry. HEAD: Normocephalic. EYES: No scleral icterus. No injection or drainage. NECK: Supple, trachea midline. No JVD or lymphadenopathy. CARDIOVASCULAR: Regular rate and rhythm without murmurs, gallops, or rubs. RESPIRATORY: Breath sounds equal bilaterally. No accessory muscle use. GASTROINTESTINAL: Abdomen soft, non-tender, nondistended. MUSCULOSKELETAL: No cyanosis, or edema. BACK: Nontender without obvious deformity. No CVA tenderness. Assessment and Plan Problem List: (1) CAD (coronary artery disease) (2) S/P CABG x 2 (3) Syncope (4) GI bleed (5) NSTEMI (non-ST elevated myocardial infarction) Assessment and Plan 1.) CAD - pod#5, opcabg lad and diag, continue lipitor, asa, lopressor, clinically improving, chest tube out, advised patient to f/u with me in office next week Problem Qualifiers (1) Syncope: Qualified Code: R55 - Syncope, unspecified syncope type (2) GI bleed: Qualified Code: K92.2 - Gastrointestinal hemorrhage, unspecified gastrointestinal hemorrhage type Nader Dennis MD Mar 21, 2017 09:22
[2017-03-21] MEDS: FERROUS SULFATE 325 MG (65 MG ELEMENTAL IRON) TAB PO SCH (12:34)
== END 2017-03-21 15:00 | DRG 234 ==
LOC: NEPC 15:41 → NEDA 18:20 → INTOOBSV 18:20 → NEPHCDU 21:16 → HCIS 03-11 13:52 → OBSVTOIN 03-11 15:22 → HCIS 03-11 18:07 → HCVR 03-15 17:10 → HCIN 03-18 05:17
PROVIDERS: ADMIT Hospitalist; ATTEND Thoracic Surgery (Cardiothoracic Vascular Surgery)
PROC: 4A023N8 Measurement of Cardiac Sampling and Pressure, Bilateral, Percutaneous Approach (ICD-10-PCS; 2017-03-11)
PROC: B2111ZZ Fluoroscopy of Multiple Coronary Arteries using Low Osmolar Contrast (ICD-10-PCS; 2017-03-11)
PROC: B2151ZZ Fluoroscopy of Left Heart using Low Osmolar Contrast (ICD-10-PCS; 2017-03-11)
PROC: 021009W Bypass Coronary Artery, One Artery from Aorta with Autologous Venous Tissue, Open Approach (ICD-10-PCS; 2017-03-16)
PROC: 06BQ4ZZ Excision of Left Saphenous Vein, Percutaneous Endoscopic Approach (ICD-10-PCS; 2017-03-16)
PROC: 02100Z9 Bypass Coronary Artery, One Artery from Left Internal Mammary, Open Approach (ICD-10-PCS; principal; 2017-03-16 07:25)
DX: I21.4 Non-ST elevation (NSTEMI) myocardial infarction (principal); T82.855A Stenosis of coronary artery stent, initial encounter; I48.0 Paroxysmal atrial fibrillation; F03.90 Unspecified dementia, unspecified severity, without behavioral disturbance, psychotic disturbance, mood disturbance, and anxiety; K92.1 Melena; R55 Syncope and collapse; E03.9 Hypothyroidism, unspecified; E78.5 Hyperlipidemia, unspecified; I25.10 Atherosclerotic heart disease of native coronary artery without angina pectoris; D64.9 Anemia, unspecified; K64.8 Other hemorrhoids; Y83.1 Surgical operation with implant of artificial internal device as the cause of abnormal reaction of the patient, or of later complication, without mention of misadventure at the time of the procedure; Z86.010 Personal history of colon polyps
CPT/HCPCS: 70450; 71010; 71555; 76937; 80048; 80053; 80061; 80307; 81001; 82550; 82552; 82810; 82948; 83036; 83735; 84155; 84443; 84484; 85002; 85014; 85018; 85025; 85027; 85347; 85610; 85730; 86850; 86900; 86901; 86920; 87641; 93005; 93460; 93880; 93970; 93998; 94010; 94150; 94640; 94664; 94667; 94668; A9579; C1768; C1769; C1887; C1893; C8909; C9113; C9399; G8987-GP; G8988-GP; G8989-GP; J0131; J0153; J0690; J1265; J1644; J1817; J1885; J2250; J2370; J2405; J2440; J2720; J2930; J3010; J3370; J3475; J3480; J7120; P9045; Q9967

== ENCOUNTER 2017-03-21 21:38 | Observation (INO) | payer MEDICARE, BC ==
[~2017-03-21] VITALS: Ht 177.8 cm; Wt 78.0 kg
[~2017-03-21 21:38] MED LIST changes: +AMIO200T PO; +ASPI81CH25 PO; +DOCU1CAP39 PO; +FERR325T20 PO; +HYDR-3516 PO; +LEVO75TA3 PO; +LIPI80TA PO; +MEMA21CA PO; +METO25TA3 PO; +OMEP10CA PO; +PLAV75TA29 PO; -ZOCO40TA PO
[2017-03-21 21:44] VITALS: BP 126/73; PULSE 78; RESP 20; TEMP 97.8
--- NOTE | 2017-03-21 22:15 | PD ---
HPI Chief Complaint: Wound/Suture/Staple Re-Check Time Seen by Provider: 21:59 Travel History International Travel<30 days: No Contact w/Intl Traveler<30days: No Traveled to known affect area: No History of Present Illness HPI This is a 71-year-old male who presents to the emergency department having been discharged today after a CABG on March 16 to a prison. [facility] sent him back because they didn't feel comfortable taking care of his wound VAC. Patient has no complaints but reports that he is irritated that he has been brought back to the emergency department. He says he was at [facility] so he appears to be a poor historian [facility] Past Medical History Hx Anticoagulant Therapy: Yes (XARELTO) Heart Rhythm Problems: No Cancer: No Cardiac Catheterization: Yes Cardiovascular Problems: Yes (STENT X1 ) Diabetes: No Diminished Hearing: No Endocrine: No Genitourinary: No Hepatitis: No Hiatal Hernia: No Immune Disorder: No Medical other: Yes (high cholesterol) Musculoskeletal: No Neurologic: No Psychiatric: No Reproductive: No Respiratory: No Thyroid Disease: No Past Surgical History Appendectomy: Yes Cardiac Surgery: No Coronary Stent: Yes Ear Surgery: No Endocrine Surgery: No Eye Surgery: No Genitourinary Surgery: No Gynecologic Surgery: No Oral Surgery: No Thoracic Surgery: No Tonsillectomy: Yes Other Surgery: Yes Social History Alcohol Use: Yes (OCC) Tobacco Use: No (never) Substance Use: No Allergies-Medications (Allergen,Severity, Reaction): Coded Allergies: No Known Allergies (Unverified , 03/10/17) Reported Meds & Prescriptions Reported Meds & Active Scripts Active Metoprolol Tartrate 25 Mg Tab 12.5 Mg PO Q12HR 60 Days Hydrocodone-Acetaminophen 5-325 mg Tab 1 Tab PO Q3H PRN Ferosul (Ferrous Sulfate) 325 Mg Tablet 325 Mg PO BID@,17 28 Days Dok (Docusate Sodium) 100 Mg Cap 100 Mg PO BID 14 Days Plavix (Clopidogrel Bisulfate) 75 Mg Tab 75 Mg PO DAILY Amiodarone (Amiodarone HCl) 200 Mg Tab 200 Mg PO Q12HR 14 Days Aspirin Low Strength (Aspirin) 81 Mg Chew 81 Mg PO DAILY 90 Days Reported Lipitor (Atorvastatin Calcium) 80 Mg Tab 80 Mg PO HS Namenda Xr (Memantine) 21 Mg Caper 21 Mg PO DAILY Levothyroxine (Levothyroxine Sodium) 75 Mcg Tab 75 Mcg PO DAILY Omeprazole 10 Mg Cap 0 PO DAILY Review of Systems ROS Limitations: Poor Historian Physical Exam Narrative GENERAL:Well appearing, no acute distress SKIN: Focused skin assessment warm and dry. HEAD: Atraumatic. Normocephalic. EYES: Pupils equal and round. No injection or drainage. ENT: Moist mucous membranes NECK: Trachea midline. CARDIOVASCULAR: Regular rate and rhythm. No murmur appreciated. Wound VAC in place over the sternum. RESPIRATORY: Clear to auscultation. Breath sounds equal bilaterally. GASTROINTESTINAL: Abdomen soft, non-tender, nondistended. MUSCULOSKELETAL: No obvious deformities. NEUROLOGICAL: Confused. No obvious cranial nerve deficits. Moving all extremities. PSYCHIATRIC: Appropriate mood and affect; insight and judgment normal. Data Data Last Documented VS Vital Signs Date Time Temp Pulse Resp B/P Pulse Ox O2 Delivery O2 Flow Rate FiO2 03/21/17 21:44 97.8 78 20 126/73 [facility] Medical Decision Making Medical Screen Exam Complete: Yes Emergency Medical Condition: Yes Differential Diagnosis wound, cabg Narrative Course This is a 71 year old male who was sent to the emergency Department from prison because he was discharged and they also comfortable taking care of his sternal wound VAC. Patient will be placed in observation for case management intervention and replacement in the morning. Diagnosis Primary Impression: S/P CABG (coronary artery bypass graft) Admitting Information Admitting Physician Requests: Observation Carmen Rodriguez MD Mar 21, 2017 22:15
[2017-03-21] MEDS ORDERED: ONDANSETRON HCL 4 MG/2 ML VIAL IVP PRN (22:45)
[2017-03-21] MEDS ORDERED: LACTULOSE SYRUP 20 GM/30 ML CUP PO PRN (22:45)
[2017-03-21] MEDS ORDERED: ACETAMINOPHEN/HYDROcodone 325 MG/5 MG TAB PO PRN (22:45)
[2017-03-21] MEDS ORDERED: SENNOSIDES 8.6 MG TAB PO PRN (22:45)
[2017-03-21] MEDS ORDERED: BISACODYL 10 MG SUPP RECTAL PRN (22:45)
[2017-03-21] MEDS ORDERED: SODIUM CHLORIDE 0.9% FLUSH 10 ML FLUSH IV FLUSH PRN (22:45)
[2017-03-21] MEDS ORDERED: ACETAMINOPHEN 325 MG TAB PO PRN (22:45)
[2017-03-21] MEDS ORDERED: MAGNESIUM HYDROXIDE SUSP 30 ML CUP PO PRN (22:45)
[2017-03-21] MEDS ORDERED: MORPHINE SULFATE 4 MG/ML INJ IV PRN (22:45)
--- NOTE | 2017-03-21 22:45 | HHI.HP ---
[facility] Primary [facility] Physician Stephen Ricks, DO Admission Diagnosis s/p cabg Diagnoses: (1) Postop check Diagnosis: Principal (2) S/P CABG (coronary artery bypass graft) Diagnosis: Principal (3) HTN (hypertension) Diagnosis: Principal Travel History International Travel<30 Days: No Contact w/Intl Traveler <30 Da: No Traveled to Known Affected Are: No History of Present Illness /This is a 71-year-old male with PMH of Paroxysmal A. fib, CAD s/p CABG 03/16/[address] Nishant soares/ Wound VAC and h/o GI Bleed who was sent to the ER from [facility]. Pt d/c'd 03/21/17 after CABG and sent to [facility], however sent back to ER as nursing staff uncomfortable w/ caring for Wound VAC and will need alternative placement. Pt with no complaints at this time. Denies fever, chills or chest pain. On arrival, BP 126/73, HR 78, O2 sats 98% on RA, Afebrile. On exam, Wound VAC intact. Case Management consulted by ER physician for assistance w/ placement, recommended admission for Observation at this time. Review of Systems Except as stated in HPI: all other systems reviewed are Neg ROS: 14 point review of systems otherwise negative. Past Family Social History Past Medical History PMH: Paroxysmal A. fib, CAD s/p CABG 03/16/[address] Nishant soares/ Wound VAC and h/ o GI Bleed Past Surgical History PAST SURGICAL HISTORY: CABG 03/16/17, Tonsillectomy Allergies: Coded Allergies: No Known Allergies (Unverified , 03/10/17) Family History PAST FAMILY HISTORY: Reviewed. No h/o DM or CAD Social History PAST SOCIAL HISTORY: Occasional alcohol. Negative for tobacco or drugs. Physical Exam Vital Signs Vital Signs Date Time Temp Pulse Resp B/P Pulse Ox O2 Delivery O2 Flow Rate FiO2 03/21/17 21:44 97.8 78 20 126/73 Physical Exam PE: GENERAL: Elderly male in no acute distress. HEENT: PERRLA, EOMI. No scleral icterus or conjunctival pallor. No lid lag or facial droop. CARDIOVASCULAR: Regular rate and rhythm. No obvious murmurs to auscultation. No chest tenderness to palpation. Wound VAC in place RESPIRATORY: No obvious rhonchi or wheezing. Clear to auscultation. Breath sounds equal bilaterally. GASTROINTESTINAL: Abdomen soft, non-tender, nondistended. BS normal. MUSCULOSKELETAL: Extremities without clubbing, cyanosis, or edema. No obvious deformities. NEUROLOGICAL: Awake, alert and oriented x4. No focal neurologic deficits. Moving both upper and lower extremities spontaneously. Assessment and Plan Problem List: (1) Postop check ICD Code: Z09 Status: Acute (2) S/P CABG (coronary artery bypass graft) ICD Code: Z95.1 Status: Acute (3) HTN (hypertension) ICD Code: I10 Status: Acute Assessment and Plan A/P: 1. Post-Op Check: s/p Wound VAC placement following CABG, d/c'd to [facility], however sent back to ER as nursing staff uncomfortable w/ caring for Wound VAC. Wound VAC intact. Case Management consulted for assistance w/ alternate placement, recommended admission for Observation. 2. S/p CABG: Recent admit for NSTEMI, s/p Cardiac Cath w/ multivessel disease , s/p CABG by Dr. Dillard 03/16/17, will resume home medications. 3. HTN: Controlled. Resume home Metoprolol. 4. DVT Prophylaxis: On Xarelto 5. Social work for assistance w/ placement 6. Case discussed w/ ER physician at length Umm Redding MD Mar 21, 2017 22:45
[2017-03-21] MEDS ORDERED: PILL SPLITTER OTHER PRN (23:15)
[2017-03-21] MEDS: AMIODARONE 200 MG TAB PO SCH (23:32)
[2017-03-22 00:20] VITALS: BP 125/79; PULSE 78; RESP 18; TEMP 98.8; O2SAT 98
[2017-03-22 04:36] VITALS: BP 116/72; PULSE 64; RESP 18; TEMP 98.5; O2SAT 96
[2017-03-22] MEDS ORDERED: LEVOTHYROXINE SODIUM 75 MCG TAB PO SCH (06:00)
[2017-03-22 07:06] VITALS: BP 110/68; PULSE 70; RESP 18; TEMP 98.6; O2SAT 95
[2017-03-22 07:36] LABS: AUTOMATED NEUTROPHIL # 3.6 TH/MM3 (1.8-7.7); BASOPHIL # 0.1 TH/MM3 (0-0.2); EOSINOPHIL # 0.2 TH/MM3 (0-0.4); EOSINOPHIL % 4.1 % (0.0-4.0); HEMATOCRIT 27.1 % (39.0-51.0); HEMO FLAGS DIFF FINAL; LYMPH % 17.6 % (9.0-44.0); LYMPHOCYTE # 0.9 TH/MM3 (1.0-4.8); MEAN CELL VOLUME 90.6 FL (80.0-100.0); MEAN CORPUSCULAR HGB CONC 34.2 % (32.0-36.0); NEUT % 68.3 % (16.0-70.0); PLATELET COUNT 356 TH/MM3 (150-450); RED BLOOD COUNT 2.99 MIL/MM3 (4.50-5.90); RED CELL DISTRIBUTION WIDTH 13.2 % (11.6-17.2); WHITE BLOOD COUNT 5.2 TH/MM3 (4.0-11.0)
[2017-03-22 08:08] LABS: ALT (GPT) 15 U/L (12-78); ANION GAP 6 MEQ/L (5-15); AST (GOT) 21 U/L (15-37); BICARBONATE 28.1 MEQ/L (21.0-32.0); BLOOD UREA NITROGEN 23 MG/DL (7-18); CHLORIDE 107 MEQ/L (98-107); GLOMERULAR FILTRATION RATE 66 ML/MIN (>89); POTASSIUM 4.1 MEQ/L (3.5-5.1); SODIUM (NA) 141 MEQ/L (136-145)
[2017-03-22 08:10] LABS: ALKALINE PHOSPHATASE 61 U/L (45-117); TOTAL BILIRUBIN ADULT 0.5 MG/DL (0.2-1.0)
[2017-03-22] MEDS ORDERED: ASPIRIN 81 MG CHEW TAB PO SCH (09:00)
[2017-03-22] MEDS ORDERED: DOCUSATE SODIUM 50 MG/SENNA 8.6 MG TAB PO SCH (09:00)
[2017-03-22] MEDS ORDERED: CLOPIDOGREL 75 MG TAB PO SCH (09:00)
[2017-03-22] MEDS ORDERED: SODIUM CHLORIDE 0.9% FLUSH 10 ML FLUSH IV FLUSH SCH (09:00)
[2017-03-22] MEDS ORDERED: METOPROLOL TARTRATE 25 MG TAB PO SCH (09:00)
[2017-03-22] MEDS ORDERED: MEMANTINE 21 MG PO SCH (09:00)
[2017-03-22] MEDS: AMIODARONE 200 MG TAB PO SCH (09:12)
--- NOTE | 2017-03-22 09:35 | HHI.PR ---
Subjective Remarks The patient is seen sitting upright at bedside. He has no medical complaints. Denies any acute chest pains, shortness of breath, cough, or abdominal complaints. He does not understand why he needs to go to a SNF. He would be willing to go home with [facility]. Objective Vitals Vital Signs Date Time Temp Pulse Resp B/P Pulse Ox O2 Delivery O2 Flow Rate FiO2 03/22/17 07:06 98.6 70 18 110/68 95 03/22/17 04:36 98.5 64 18 116/72 96 03/22/17 00:20 98.8 78 18 125/79 98 03/21/17 21:44 97.8 78 20 126/73 Result Diagram: 03/22/17 0650 03/22/17 0650 Objective Remarks GENERAL: Well-nourished, well-developed pleasant elderly male patient in [facility]. SKIN: Warm and dry. No rash. HEENT: Normocephalic. Atraumatic.Pupils equal and round. Mucous membranes pink and moist. NECK: Supple. Trachea midline. CARDIOVASCULAR: Regular rate and rhythm. S1, S2 noted. No murmur appreciated. Midline sternotomy wound vac in place. RESPIRATORY: No accessory muscle use. Clear to auscultation. Breath sounds equal bilaterally. GASTROINTESTINAL: Abdomen soft, non-tender, nondistended. Normoactive bowel sounds x4. MUSCULOSKELETAL: No obvious deformities. Extremities without clubbing, cyanosis , or edema. NEUROLOGICAL: Awake and alert. No obvious cranial nerve deficits. Motor grossly within normal limits. Normal speech. PSYCHIATRIC: Appropriate mood and affect; insight and judgment normal. Medications and IVs Current Medications Medications (Trade) Dose Ordered Sig/Jessica Route Start Time Stop Time Status Last Admin (NS Flush) 2 ml UNSCH PRN IV FLUSH 03/21/17 22:45 (NS Flush) 2 ml BID IV FLUSH 03/22/17 09:00 03/22/17 09:11 (Zofran Inj) 4 mg Q6H PRN IVP 03/21/17 22:45 (Tylenol) 650 mg Q6H PRN PO 03/21/17 22:45 (Morphine Inj) 2 mg Q3H PRN IV 03/21/17 22:45 (Bea-Colace) 1 tab BID PO 03/22/17 09:00 (Milk Of Magnesia Liq) 30 ml Q12H PRN PO 03/21/17 22:45 (Senokot) 17.2 mg Q12H PRN PO 03/21/17 22:45 (Dulcolax Supp) 10 mg DAILY PRN RECTAL 03/21/17 22:45 (Lactulose Liq) 30 ml DAILY PRN PO 03/21/17 22:45 (Cordarone) 200 mg Q12HR PO 03/21/17 22:45 03/22/17 09:12 (Aspirin Chew) 81 mg DAILY PO 03/22/17 09:00 03/22/17 09:12 (Lipitor) 80 mg HS PO 03/22/17 21:00 (Plavix) 75 mg DAILY PO 03/22/17 09:00 03/22/17 09:12 (Ferrous Sulfate) 325 mg BID@ PO 03/22/17 12:00 ([place] 5-325 Mg) 1 tab Q3H PRN PO 03/21/17 22:45 (Synthroid) 75 mcg DAILY@0600 PO 03/22/17 06:00 03/22/17 05:22 (Lopressor) 12.5 mg Q12HR PO 03/22/17 09:00 03/22/17 09:12 Patient Own Medication PT OWN MED: MEMANT... DAILY PO 03/22/17 09:00 Hold (Pill Splitter) 1 ea UNSCH PRN OTHER 03/21/17 23:15 A/P Problem List: (1) Postop check ICD Code: Z09 Status: Acute (2) S/P CABG (coronary artery bypass graft) ICD Code: Z95.1 Status: Acute (3) HTN (hypertension) ICD Code: I10 Status: Acute Assessment and Plan 71-year-old male with PMH of Paroxysmal A. fib, CAD s/p CABG 03/16/[address] Dillard w/ Wound VAC and h/o GI Bleed who was sent to the ER from [facility]. Pt d/c'd 03/21/17 after CABG and sent to [facility], however sent back to ER as nursing staff uncomfortable w/ caring for Wound VAC and will need alternative placement. Post-Op Check: s/p Wound VAC placement following CABG, d/c'd to [facility], however sent back to ER as nursing staff uncomfortable w/ caring for Wound VAC. Wound VAC intact. Case Management consulted for assistance w/ alternate placement, recommended admission for Observation. S/p CABG: Recent admit for NSTEMI, s/p Cardiac Cath w/ multivessel disease, s/ p CABG by Dr. Dillard 03/16/17, resume home medications. HTN: Controlled. Resume home Metoprolol. DVT Prophylaxis: On Xarelto Discharge Planning Case management to assist with discharge planing. The patient is medically stable for discharge. 1315hrs: Patient still awaiting PT evaluation however suspect patient can go home with [facility] as patient is able to ambulate the unit without difficulty ( witnessed by me). The patient adamantly does not want to go to SNF. Patient's daughter reporting she is POA and healthcare surrogate and adamantly wants him placed into SNF. From a medical standpoint, the patient is stable and ready for discharge. He is awake, alert, oriented x4, and seems to have the capacity to make his own medical decisions however with daughter reporting POA/surrogate, the decision would ultimately be hers (still need documentation to prove this). I will defer to case management to make discharge arrangements. Home health care [id number] placed however if daughter refuses HHC and still requesting rehab, then case management can look into placement options. Virgie Beverly PA-C Mar 22, 2017 9:34 am
[2017-03-22 10:51] VITALS: BP 95/60; PULSE 65; RESP 18; TEMP 98; O2SAT 98
[2017-03-22] MEDS ORDERED: FERROUS SULFATE 325 MG (65 MG ELEMENTAL IRON) TAB PO SCH (12:00)
--- NOTE | 2017-03-22 13:26 | HHI.FF ---
Face to Face Verification Diagnosis: (1) Syncope (2) CAD (coronary artery disease) (3) NSTEMI (non-ST elevated myocardial infarction) (4) S/P CABG (coronary artery bypass graft) (5) HTN (hypertension) Physical Therapy Order: Evaluate and Treat, Improve ambulation, Strength and gait training Home Health Nursing Order: Medical education Signs/symptoms of disease process Wound care and dressing changes (continue wound vac care) Nursing assessment with vital signs Home Health Aide Order: To Assist In: Bathing and personal care, pathology technician and meal prep Algorithm Design Engineer Order: To Evaluate: Support services Order: To Provide: Long range planning, Community services I have seen patient Julio Short on 03/22/17. My clinical findings support the need for the requested home health care services because: Deconditioned w/ increased weakness Med compliance is questionable Limited ability to care for self I certify that my clinical findings support that this patient is homebound because: Post-op weakness Unsteady gait/balance Unsafe to leave home unassisted Unable to use public transportation Virgie Beverly PA-C Mar 22, 2017 13:26 Taylor Tate MD Mar 22, 2017 19:09
--- NOTE | 2017-03-22 13:28 | HHI.DCPOC ---
Discharge Care Plan Diagnosis: (1) CAD (coronary artery disease) (2) S/P CABG (coronary artery bypass graft) (3) Postop check (4) HTN (hypertension) Goals to Promote Your Health * To prevent worsening of your condition and complications * To maintain your health at the optimal level Directions to Meet Your Goals Take your medications as prescribed Follow your dietary instruction Follow activity as directed Keep your appointments as scheduled Take your immunizations and boosters as scheduled If your symptoms worsen call your PCP, if no PCP go to Urgent Care Center or Emergency Room Smoking is Dangerous to Your Health. Avoid second hand smoke Call the 24-hour hour crisis hotline for domestic abuse at Virgie Beverly PA-C Mar 22, 2017 1:28 pm
[2017-03-22] MEDS ORDERED: ATORVASTATIN 80 MG TAB PO SCH (21:00)
== END 2017-03-22 15:13 | disposition home or self-care (01) ==
LOC: NEPD 21:38 → NEDA 22:29 → NEPGCP 23:44
PROVIDERS: ADMIT Hospitalist; ATTEND Hospitalist
DX: I25.10 Atherosclerotic heart disease of native coronary artery without angina pectoris (principal); Z95.1 Presence of aortocoronary bypass graft; I48.0 Paroxysmal atrial fibrillation; I10 Essential (primary) hypertension; Z79.01 Long term (current) use of anticoagulants
CPT/HCPCS: 80053; 85025; 97161; 99285; G0378; G8987; G8988; G8989

== ENCOUNTER 2017-04-17 14:50 | Observation (INO) | payer MEDICARE, BC ==
[~2017-04-17] VITALS: Ht 177.8 cm; Wt 77.0 kg
[2017-04-17 14:51] VITALS: BP 139/77; PULSE 84; RESP 15; TEMP 98.1; O2SAT 100
--- NOTE | 2017-04-17 16:00 | PD ---
HPI Chief Complaint: Foreign Body Time Seen by Provider: 15:42 Travel History International Travel<30 days: No Contact w/Intl Traveler<30days: No Traveled to known affect area: No History of Present Illness HPI 71-year-old male presents with complaints of retained foreign body in his rectum. The patient states that he stuck a water bottle in his rectum about an hour prior to arrival. He states he is unable to reach tree that. He reports the water bottle was empty of however still had the cap on. He reports that he inserted the bottom first. He denies any severe abdominal pain. He states he is very embarrassed about his presentation. There are no other complaints time my examination. PFSH Past Medical History Hx Anticoagulant Therapy: Yes (XARELTO) Blood Disorders: No Heart Rhythm Problems: No Cancer: No Cardiac Catheterization: Yes Cardiovascular Problems: Yes (stent ) Diabetes: No Diminished Hearing: No Endocrine: No Genitourinary: Yes Hepatitis: No Hiatal Hernia: No Immune Disorder: No Musculoskeletal: No Neurologic: No Psychiatric: No Reproductive: No Respiratory: No Thyroid Disease: No Past Surgical History Appendectomy: Yes Cardiac Surgery: No Coronary Stent: Yes Ear Surgery: No Endocrine Surgery: No Eye Surgery: No Genitourinary Surgery: No Gynecologic Surgery: No Oral Surgery: No Thoracic Surgery: No Tonsillectomy: Yes Other Surgery: Yes Social History Alcohol Use: Yes (OCC) Tobacco Use: No (never) Substance Use: No Allergies-Medications (Allergen,Severity, Reaction): Coded Allergies: No Known Allergies (Unverified , 04/17/17) Reported Meds & Prescriptions Reported Meds & Active Scripts Active Metoprolol Tartrate 25 Mg Tab 12.5 Mg PO Q12HR 60 Days Hydrocodone-Acetaminophen 5-325 mg Tab 1 Tab PO Q3H PRN Ferosul (Ferrous Sulfate) 325 Mg Tablet 325 Mg PO BID@,17 28 Days Dok (Docusate Sodium) 100 Mg Cap 100 Mg PO BID 14 Days Plavix (Clopidogrel Bisulfate) 75 Mg Tab 75 Mg PO DAILY Amiodarone (Amiodarone HCl) 200 Mg Tab 200 Mg PO Q12HR 14 Days Aspirin Low Strength (Aspirin) 81 Mg Chew 81 Mg PO DAILY 90 Days Reported Lipitor (Atorvastatin Calcium) 80 Mg Tab 80 Mg PO HS Namenda Xr (Memantine) 21 Mg Caper 21 Mg PO DAILY Levothyroxine (Levothyroxine Sodium) 75 Mcg Tab 75 Mcg PO DAILY Omeprazole 10 Mg Cap 0 PO DAILY Review of Systems Except as stated in HPI: all other systems reviewed are Neg HENT: No: Headaches, Lightheadedness Cardiovascular: No: Chest Pain or Discomfort, Palpitations Respiratory: No: Cough, Shortness of Breath Gastrointestinal: Positive: Other (retained rectal foreign body), No: Nausea, Abdominal Pain Genitourinary: No: Frequency, Dysuria Physical Exam Narrative GENERAL: Well-nourished, well-developed patient. CARDIOVASCULAR: Regular rate and rhythm without murmurs, gallops, or rubs. RESPIRATORY: Breath sounds equal bilaterally. No accessory muscle use. GASTROINTESTINAL: Abdomen soft, non-tender, nondistended. RECTAL EXAM: MUSCULOSKELETAL: No cyanosis, or edema. BACK: Nontender without obvious deformity. No CVA tenderness. Data Data Last Documented VS Vital Signs Date Time Temp Pulse Resp B/P Pulse Ox O2 Delivery O2 Flow Rate FiO2 04/17/17 15:55 15 04/17/17 14:51 98.1 84 139/77 100 Orders Abdomen, Kub Only (04/17/17 15:42) Ct Abd/Pel W/O Iv Contrast (04/17/17 16:12) Place In Observation (04/17/17 ) Vital Signs (Adult) Q4H (04/17/17 18:34) Activity Oob With Assistance (04/17/17 18:34) Diet Npo (04/17/17 Dinner) Sodium Chlor 0.9% 1000 Ml Inj (Ns 1000 M (04/17/17 18:34) Sodium Chloride 0.9% Flush (Ns Flush) (04/17/17 18:45) Sodium Chloride 0.9% Flush (Ns Flush) (04/17/17 21:00) Acetaminophen (Tylenol) (04/17/17 18:45) Ondansetron Inj (Zofran Inj) (04/17/17 18:45) Temazepam (Restoril) (04/17/17 18:45) Basic Metabolic Panel (Bmp) (04/18/17 06:00) Complete Blood Count With Diff (04/18/17 06:00) Resp Oxygen Elroy C Titrat 1-4 L (04/17/17 ) Case Management Consult (04/17/17 18:34) Scd Bilateral/Knee High TIANA.BID (04/17/17 18:34) Jin Bilateral/Knee High TIANA.QSHIFT (04/17/17 18:34) Docusate Sodium-Senna (Bea-Colace) (04/17/17 21:00) Magnesium Hydroxide Liq (Milk Of Magnesi (04/17/17 18:45) Sennosides (Senokot) (04/17/17 18:45) Bisacodyl Supp (Dulcolax Supp) (04/17/17 18:45) Lactulose Liq (Lactulose Liq) (04/17/17 18:45) Admit Order (Ed Use Only) (04/17/17 18:38) MDM Medical Decision Making Medical Screen Exam Complete: Yes Emergency Medical Condition: Yes Differential Diagnosis Retained rectal foreign body versus perforated intestine versus anal fissure Narrative Course 71-year-old male presents after inserting a water bottle up his rectum. On examination of the plain x-ray, the water bottle. To be higher than the rectosigmoid area. A formal CT scan without contrast was ordered which shows the bottle at 18 cm from his rectum. This is too far for me to retrieve. I spoke with Dr. Henao, on-call GI physician. She originally was given a take the patient to the GI lab however she noted that he it's been seen previously by Dr. Moore and Dr. Head. He had also been seen 3 years ago for the same thing and had to have the bottle removed by Dr. Head. Dr. Moore is here to attempt to remove the bottle in the GI lab. He'll be admitted to the medicine service. Diagnosis Primary Impression: Rectal foreign body Admitting Information Admitting Physician Requests: Observation Manuel Jacob MD Apr 17, 2017 16:00
--- NOTE | 2017-04-17 16:39 | RADRPT ---
EXAM DATE/TIME: 04/17/2017 16:14 [facility] COMPARISON: No previous studies available for comparison. INDICATIONS : Foreign body. MEDICAL HISTORY : Hypertension. SURGICAL HISTORY : CABG. ENCOUNTER: Initial ACUITY: 1 day PAIN SCORE: 0/10 LOCATION: abdomen FINDINGS: 2 supine frontal views of the abdomen demonstrate a nonobstructive bowel gas pattern. There is a cyli ndrical lucency measuring approximately 18.2 x 6.5 cm overlying the epigastric region. Presumably it is located within the stomach. Patient is post median sternotomy and clips overlie the inferior chest /left upper quadrant. Bones demonstrate no acute finding. CONCLUSION: There is a cylindrical shaped lucency overlying the epigastric region, presumably in the stomach. Ramez Meza MD on April 17, 2017 at 16:26 Board Certified Radiologist. This report was verified electronically.
--- NOTE | 2017-04-17 17:10 | RADRPT ---
EXAM DATE/TIME: 04/17/2017 16:47 [facility] COMPARISON: No previous studies available for comparison. INDICATIONS : Abdomen pain, rectal foreign body. ORAL CONTRAST: No oral contrast ingested. RADIATION DOSE: 9.96 CTDIvol (mGy) MEDICAL HISTORY : Cardiovascular disease. SURGICAL HISTORY : Appendectomy. ENCOUNTER: Initial ACUITY: 1 day PAIN SCALE: 2/10 LOCATION: Bilateral lower quadrant TECHNIQUE: Volumetric scanning of the abdomen and pelvis was performed. Using automated exposure control and ad justment of the mA and/or kV according to patient size, radiation dose was kept as low as reasonably achievable to obtain optimal diagnostic quality images. DICOM format image data is available electro nically for review and comparison. FINDINGS: LOWER LUNGS: There is trace right pleural fluid. LIVER: Homogeneous density without lesion. There is no dilation of the biliary tree. No calcified gallston es. SPLEEN: Normal size without lesion. PANCREAS: Within normal limits. KIDNEYS: Normal in size and shape. There is no mass or hydronephrosis. There is a 3.3 cm cyst in the left kid keila. A 2 mm nonobstructing left renal stone is present. ADRENAL GLANDS: Within normal limits. VASCULAR: There is no aortic aneurysm. BOWEL/MESENTERY: Stomach and small bowel demonstrate no abnormality. There is a cylindrical foreign body containing ai r and fluid located in the mid sigmoid colon. It is located in the upper midline abdomen anteriorly v sophie the patient has a elongated redundant sigmoid colon that extends into the superior aspect of the abdomen. There are no findings to suggest colonic obstruction. It is estimated to measure approximate ly 18 cm from the rectum. ABDOMINAL WALL: Within normal limits. RETROPERITONEUM: There is no lymphadenopathy. BLADDER: No wall thickening or mass. REPRODUCTIVE: Within normal limits. INGUINAL: There is no lymphadenopathy or hernia. MUSCULOSKELETAL: There are degenerative changes of the lumbar spine. CONCLUSION: 1. There is a cylindrical air and fluid containing foreign body in the proximal to mid sigmoid colon. The distal end is estimated to be approximately 18 cm from the rectum. The patient has an elongated redundant sigmoid colon so the foreign body is actually located in the superior aspect of the abdomen . 2. Trace right pleural fluid. Ramez Meza MD on April 17, 2017 at 17:01 Board Certified Radiologist. This report was verified electronically.
[2017-04-17] MEDS ORDERED: TEMAZEPAM 15 MG CAP PO PRN (18:45)
[2017-04-17] MEDS ORDERED: SENNOSIDES 8.6 MG TAB PO PRN (18:45)
[2017-04-17] MEDS ORDERED: LACTULOSE SYRUP 20 GM/30 ML CUP PO PRN (18:45)
[2017-04-17] MEDS ORDERED: ACETAMINOPHEN 325 MG TAB PO PRN (18:45)
[2017-04-17] MEDS ORDERED: ONDANSETRON HCL 4 MG/2 ML VIAL IVP PRN (18:45)
[2017-04-17] MEDS ORDERED: SODIUM CHLORIDE 0.9% FLUSH 10 ML FLUSH IV FLUSH PRN (18:45)
[2017-04-17] MEDS ORDERED: BISACODYL 10 MG SUPP RECTAL PRN (18:45)
[2017-04-17] MEDS ORDERED: MAGNESIUM HYDROXIDE SUSP 30 ML CUP PO PRN (18:45)
[2017-04-17 19:12] VITALS: BP 125/75; PULSE 61; RESP 16; O2SAT 96
[2017-04-17] MEDS: SODIUM CHLOR 0.9% 1000 ML INJ 1,000 ML IV SCH (19:44)
--- NOTE | 2017-04-17 19:53 | HHI.HP ---
HPI Service [facility] Primary Care Physician Stephen Ricks DO Admission Diagnosis rectal foreign body Diagnoses: (1) Rectal foreign body Diagnosis: Principal (2) HTN (hypertension) Diagnosis: Principal (3) A-fib Diagnosis: Principal Travel History International Travel<30 Days: No Contact w/Intl Traveler <30 Da: No Traveled to Known Affected Are: No History of Present Illness This is a 71-year-old male with a PMH of HTN, A. fib on Xarelto and h/o CAD s/p Stent who presented to the ER after inserting a water bottle up his rectum earlier today. States he inserted the bottom first, but was unable to retrieve it. Denies any significant pain complaints. No fever, chills or nausea/ vomiting. On arrival, BP 139/77, HR 84, O2 sat 100% on RA, Afebrile. GI consulted by ER physician, however pt seen previously by Dr. Escamilla and consult placed to him. S/p eval in ER w/ plans for surgical removal. Abdominal X-ray with cylindrical shaped lucency overlying epigastric region, presumably in the stomach. CT Abd/Pelvis with cylindrical air fluid containing foreign-body in the proximal to mid sigmoid colon, proximally 18 cm from the rectum. Review of Systems Except as stated in HPI: all other systems reviewed are Neg ROS: 14 point review of systems otherwise negative. Past Family Social History Past Medical History PMH: HTN, A. fib on Xarelto and h/o CAD s/p Stent Past Surgical History PAST SURGICAL HISTORY: Appendectomy, Cardiac Stent, Tonsillectomy Allergies: Coded Allergies: No Known Allergies (Unverified , 04/17/17) Family History PAST FAMILY HISTORY: Reviewed. No h/o DM or CAD Social History PAST SOCIAL HISTORY: Negative for alcohol, tobacco or drugs. Physical Exam Vital Signs Vital Signs Date Time Temp Pulse Resp B/P Pulse Ox O2 Delivery O2 Flow Rate FiO2 04/17/17 19:12 61 16 125/75 96 Room Air 04/17/17 15:55 15 04/17/17 14:51 98.1 84 15 139/77 100 Physical Exam PE: GENERAL: Pleasant elderly white male in no acute distress. HEENT: PERRLA, EOMI. No scleral icterus or conjunctival pallor. No lid lag or facial droop. CARDIOVASCULAR: Regular rate and rhythm. No obvious murmurs to auscultation. No chest tenderness to palpation. RESPIRATORY: No obvious rhonchi or wheezing. Clear to auscultation. Breath sounds equal bilaterally. GASTROINTESTINAL: Abdomen soft, non-tender, nondistended. BS normal. MUSCULOSKELETAL: Extremities without clubbing, cyanosis, or edema. No obvious deformities. NEUROLOGICAL: Awake, alert and oriented x4. No focal neurologic deficits. Moving both upper and lower extremities spontaneously. Assessment and Plan Problem List: (1) Rectal foreign body ICD Code: T18.5XXA Status: Acute (2) HTN (hypertension) ICD Code: I10 Status: Acute (3) A-fib ICD Code: I48.91 Status: Acute Assessment and Plan A/P: 1. Rectal Foreign Body: s/p insertion of water bottle into rectum, unable to retrieve. Abd X-ray w/ foreign body noted, CT Abd/Pelvis w/ cylindrical air and fluid containing foreign body and proximal to mid sigmoid colon, 18 cm from rectum, images reviewed by me. S/p eval by Dr. Escamilla in ER, plan is for surgical intervention for removal. NPO, IVF, analgesics/antiemetics as needed. 2. HTN: BP controlled. Hold PO medications for now, resume home medication post-procedure. 3. A-fib: Chronic. Controlled. Resume home Amiodarone, Metoprolol post- procedure once able to take PO. 4. DVT Prophylaxis: SCD/Teds. 5. Social work for d/c planning as needed. 6. Case discussed w/ ER physician at length. Umm Redding MD Apr 17, 2017 19:53
[2017-04-17] MEDS ORDERED: MORPHINE SULFATE 4 MG/ML INJ IV PUSH PRN ×2 (20:00)
[2017-04-17] MEDS ORDERED: KETAMINE HCL 500 MG/5 ML VIAL ONE (20:29)
--- NOTE | 2017-04-17 20:42 | MB ---
cc: THEO ESCAMILLA M.D. DATE OF CONSULTATION 04/17/17 DATE OF 1945 REASON FOR CONSULTATION Asked to see the patient at the request of Dr. Jacob for evaluation of abnormal CAT scan-a foreign body in the sigmoid. HISTORY OF PRESENT ILLNESS The patient is a pleasant 71-year-old white male who has a history of gastric ulcer and colon polyps who apparently placed a plastic bottle in his rectum (bottom first) and could not get it out. Abdominal x-ray confirmed this foreign body and a CAT scan also confirmed it. He denies abdominal pain or fever or chills. No dysphagia, odynophagia, or early satiety, nausea, vomiting, abdominal pain. We have been asked to manage the situation. PAST SURGICAL HISTORY Appendectomy, cardiac stenting, tonsillectomy. PAST MEDICAL HISTORY Significant for past medical history of coronary artery disease. He has had arrhythmias. He takes a Xarelto. He has had genitourinary problems also. He also has history of dyslipidemia and hypothyroidism and gastroesophageal reflux disease. SOCIAL HISTORY Occasional alcohol. Does not smoke. ALLERGIES No known drug allergies. MEDICATIONS Outpatient: 1. Hydrocodone. 2. Feosol. 3. Ducosate. 4. Plavix. 5. Amiodarone. 6. Aspirin. 7. Metoprolol. 8. Omeprazole. 9. Levothyroixine. 10. Namenda. 11. Lipitor. He may be on Xarelto also. REVIEW OF SYSTEMS No weight loss, fever, chills. CARDIOPULMONARY: No chest pain, palpitations, shortness of breath. GASTROINTESTINAL: Please see above. He is also reported to have rectum foreign body in the past also. This was removed by colorectal surgery. Otherwise ten-point review of systems unremarkable PHYSICAL EXAMINATION VITAL SIGNS: Blood pressure is 125/75, pulse 61, respiratory rate 16, temperature 98.1. GENERAL: He is an elderly white male resting comfortably at this time. Appears to be in no acute GI distress. He is very embarrassed about the situation. HEENT: His pupils are equal, round and reactive to light. No obvious scleral icterus. Oropharyngeal cavity had dental caries. No tongue deviation. No candidal lesion. Hearing intact. NECK: Supple. No thyromegaly or lymphadenopathy. LUNGS: Clear to auscultation. HEART: Regular rhythm. No gross murmurs heard. ABDOMEN: Soft, nondistended, nontender. No organomegaly. No ascites or hernias. RECTAL: Exam not done-it is attempted by ER physician who could not feel the foreign body. EXTREMITIES: No clubbing, cyanosis or edema. NEUROLOGIC: He is alert and oriented times three. LABORATORY DATA No labs are done. IMAGING STUDIES A CT scan of the abdomen and pelvis showed a cylindrical mass in the [id number] in it. It appears to be in the proximal to mid sigmoid colon about 18 cm in the rectum. There is trace pleural fluid also. Abdominal x-ray also showed this mass but it thought it might have been in the stomach. IMPRESSION Abnormal CT scan-may be foreign body in the sigmoid/rectal area. PLAN Proceed with removal of the mass-basically a colonoscopy or a flex-sig with removal of this lesion. He understands the indications, risks, complications, benefits, alternatives, limitations include risk of bleeding, perforation, infection, arrhythmias and the small possibility of . He understands that we may not be able to remove this lesion. He may need surgery to remove it. However, we will attempt to remove it per the rectum. Further recommendations depends on how he does. He understands that the colonoscopy will not be complete, it would be a limited exam to remove this lesion. Theo Escamilla MD SP/WEST[place] /7:59 PM /8:18 PM [facility]
[2017-04-17] MEDS: SODIUM CHLORIDE 0.9% FLUSH 10 ML FLUSH IV FLUSH SCH (21:00)
[2017-04-17] MEDS ORDERED: PROPOFOL 200 MG/20 ML AMP IV ONE (21:29)
[2017-04-17] MEDS ORDERED: DO NOT ADM ANY ANTICOAGULANT DRUGS PRN (21:30)
[2017-04-17] MEDS ORDERED: MIDAZOLAM HCL 2 MG/2 ML VIAL ONE (21:50)
--- NOTE | 2017-04-17 22:05 | HHI.GIFU ---
GI Follow-up Note Consult Follow-up FLEX SIG WITH FOREIGN BODY REMOVAL Findin. Large plastic pool chemical bottle in mid sigmoid-removed 2. Small hemorrhoids PLAN: 1. NPO-watch for complications 2. Start liquids in am. If doing well in am and tolerating diet he can be d/c with ROV in our office It was a pleasure seeing Julio Short. Thank you for this consult. Entered by: Theo Holt MD Apr 17, 2017 22:05
[2017-04-17 22:11] VITALS: BP 108/65; PULSE 74; RESP 17; TEMP 97.6; O2SAT 96
[2017-04-17] MEDS ORDERED: NALOXONE HCL 0.4 MG/ML AMP IV PRN (22:15)
[2017-04-17] MEDS ORDERED: FLUMAZENIL 0.5 MG/5 ML VIAL IV PRN ×2 (22:15)
[2017-04-17] MEDS: DOCUSATE SODIUM 50 MG/SENNA 8.6 MG TAB PO SCH (22:38)
[2017-04-17 23:17] VITALS: BP 140/75; PULSE 64; RESP 17; TEMP 97.3; O2SAT 100
[2017-04-18 03:50] VITALS: BP 115/72; PULSE 68; RESP 17; TEMP 97.5; O2SAT 99
[2017-04-18] MEDS: SODIUM CHLOR 0.9% 1000 ML INJ 1,000 ML IV SCH (04:34)
[2017-04-18 05:59] LABS: AUTOMATED NEUTROPHIL # 2.9 TH/MM3 (1.8-7.7); BASOPHIL % 0.6 % (0.0-2.0); EOSINOPHIL # 0.2 TH/MM3 (0-0.4); HEMATOCRIT 30.7 % (39.0-51.0); HEMO FLAGS DIFF FINAL; LYMPH % 25.5 % (9.0-44.0); LYMPHOCYTE # 1.2 TH/MM3 (1.0-4.8); MEAN CORPUSCULAR HEMOGLOBIN 30.1 PG (27.0-34.0); NEUT % 60.9 % (16.0-70.0); PLATELET COUNT 254 TH/MM3 (150-450); RED BLOOD COUNT 3.37 MIL/MM3 (4.50-5.90); RED CELL DISTRIBUTION WIDTH 15.7 % (11.6-17.2); WHITE BLOOD COUNT 4.8 TH/MM3 (4.0-11.0)
[2017-04-18 06:15] LABS: BICARBONATE 24.3 MEQ/L (21.0-32.0); POTASSIUM 3.7 MEQ/L (3.5-5.1)
[2017-04-18 06:23] VITALS: O2SAT 97
[2017-04-18] MEDS ORDERED: POTASSIUM CHLORIDE 20 MEQ CONTROLLED RELEASE TAB PO ONE (07:15)
--- NOTE | 2017-04-18 07:52 | HHI.GIFU ---
GI Follow-up Note Consult Follow-up Subjective: Patient laying in bed comfortably. No N/V/Abd pain Objective: PHYSICAL EXAMINATION: Vitals signs stable No fever CHEST: Chest is clear to auscultation and percussion.s. ABDOMEN: Soft, nondistended, nontender; no hepatosplenomegaly; bowel sounds are present in all four quadrants. EXTREMITIES: No clubbing, cyanosis, or edema. SKIN: no jaundice. CLOTH WEAVER: alert and oriented times three. Available Data (labs, X- Rays, Procedues) : ASSESSMENT/PLAN: 1. Abnormal CT scan--FB in sigmoid--removed PLAN: 1. advance diet 2. If tolerating diet he can be d/c 3. OV with GI upon D/C It was a pleasure seeing Julio Short. Thank you for this consult. Entered by: Theo Holt MD Apr 18, 2017 07:52
[2017-04-18 08:16] VITALS: BP 130/74; PULSE 65; RESP 20; TEMP 96.8; O2SAT 95
[2017-04-18] MEDS: DOCUSATE SODIUM 50 MG/SENNA 8.6 MG TAB PO SCH (08:57)
[2017-04-18] MEDS: SODIUM CHLORIDE 0.9% FLUSH 10 ML FLUSH IV FLUSH SCH (08:57)
--- NOTE | 2017-04-18 10:02 | HHI.PR ---
Subjective Remarks Follow up for rectal foreign body, now removed. The patient feels well today. Denies any abdominal pain, nausea/vomiting. Denies any rectal bleeding. He wants to go home. He has no other medical complaints at this time. Objective Vitals Vital Signs Date Time Temp Pulse Resp B/P Pulse Ox O2 Delivery O2 Flow Rate FiO2 04/18/17 08:16 96.8 65 20 130/74 95 04/18/17 06:23 97 Nasal Cannula 2.00 04/18/17 03:50 97.5 68 17 115/72 99 04/17/17 23:17 97.3 64 17 140/75 100 04/17/17 22:11 97.6 74 17 108/65 96 04/17/17 21:45 97.7 69 18 105/56 100 Nasal Cannula 2 04/17/17 19:12 61 16 125/75 96 Room Air 04/17/17 15:55 15 04/17/17 14:51 98.1 84 15 139/77 100 Result Diagram: 04/18/17 0500 04/18/17 0500 Imaging Last Impressions Abdomen/Pelvis CT 04/17/17 1612 Signed Impressions: Service Date/Time: Monday, April 17, 2017 16:47 - CONCLUSION: 1. There is a cylindrical air and fluid containing foreign body in the proximal to mid sigmoid colon. The distal end is estimated to be approximately 18 cm from the rectum. The patient has an elongated redundant sigmoid colon so the foreign body is actually located in the superior aspect of the abdomen. 2. Trace right pleural fluid. Ramez Meza MD Abdomen X-Ray 04/17/17 1542 Signed Impressions: Service Date/Time: Monday, April 17, 2017 16:14 - CONCLUSION: There is a cylindrical shaped lucency overlying the epigastric region, presumably in the stomach. Ramez Meza MD Objective Remarks GENERAL: Well-nourished, well-developed pleasant elderly male patient in [facility]. SKIN: Warm and dry. No rash. HEENT: Normocephalic. Atraumatic. Pupils equal and round. Mucous membranes pink and moist. NECK: Supple. Trachea midline. CARDIOVASCULAR: Regular rate and rhythm. No murmur appreciated. RESPIRATORY: No accessory muscle use. Clear to auscultation. Breath sounds equal bilaterally. GASTROINTESTINAL: Abdomen soft, non-tender, nondistended. Normoactive bowel sounds x4. MUSCULOSKELETAL: No obvious deformities. Extremities without clubbing, cyanosis , or edema. NEUROLOGICAL: Awake and alert. No obvious cranial nerve deficits. Motor grossly within normal limits. Normal speech. Medications and IVs Current Medications Medications (Trade) Dose Ordered Sig/Jessica Route Start Time Stop Time Status Last Admin (NS 1000 ml Inj) 1,000 ml @ 100 mls/hr Q10H IV 04/17/17 18:34 04/18/17 04:34 (NS Flush) 2 ml UNSCH PRN IV FLUSH 04/17/17 18:45 (NS Flush) 2 ml BID IV FLUSH 04/17/17 21:00 (Tylenol) 650 mg Q4H PRN PO 04/17/17 18:45 (Zofran Inj) 4 mg Q6H PRN IVP 04/17/17 18:45 (Restoril) 15 mg HS PRN PO 04/17/17 18:45 (Bea-Colace) 1 tab BID PO 04/17/17 21:00 04/18/17 08:57 (Milk Of Magnesia Liq) 30 ml Q12H PRN PO 04/17/17 18:45 (Senokot) 17.2 mg Q12H PRN PO 04/17/17 18:45 (Lactulose Liq) 30 ml DAILY PRN PO 04/17/17 18:45 (Morphine Inj) 1 mg Q3H PRN IV PUSH 04/17/17 20:00 (Morphine Inj) 2 mg Q3H PRN IV PUSH 04/17/17 20:00 Miscellaneous Information ALL NURSING DEPARTME... UNSCH PRN .XX 04/17/17 21:30 04/18/17 21:29 (Romazicon Inj) 0.2 mg Q1M PRN IV 04/17/17 22:15 04/18/17 22:14 (Narcan Inj) 0.1 mg Q2M PRN IV 04/17/17 22:15 04/18/17 22:14 A/P Problem List: (1) Rectal foreign body ICD Code: T18.5XXA Status: Acute (2) HTN (hypertension) ICD Code: I10 Status: Acute (3) A-fib ICD Code: I48.91 Status: Acute Assessment and Plan 71-year-old male with a PMH of HTN, A. fib on Xarelto and h/o CAD s/p CABG who presented to the ER after inserting a water bottle up his rectum earlier today. Rectal Foreign Body: s/p insertion of water bottle into rectum, unable to retrieve. Abd X-ray w/ foreign body noted, CT Abd/Pelvis w/ cylindrical air and fluid containing foreign body and proximal to mid sigmoid colon, 18 cm from rectum, images reviewed by me. Given IVF, analgesics/antiemetics as needed. GI consulted, Dr. Escamilla removed foreign body with colonoscopy 04/17. GI advanced diet, cleared for discharge if patient tolerates oral intake. HTN: BP controlled. Resume home medications. A-fib: Chronic. Controlled. Resume home Amiodarone, Metoprolol. DVT Prophylaxis: SCD/Teds. Discharge Planning Discharge patient to home Condition on discharge: Improved Heart Healthy Diet as tolerated Ad Gayla activity Rx written: no new meds Follow-up with primary care physician Dr. Ricks in [address] Escamilla Attending Statement The exam, history, and the medical decision-making described in the above note were completed with the assistance of the mid-level provider. I reviewed and agree with the findings presented. I attest that I had a [id number] encounter with the patient on the same day, and personally performed and documented my assessment and findings in the medical record. Virgie Beverly PA-C Apr 18, 2017 10:02 Donal Harmon MD Apr 18, 2017 18:03
--- NOTE | 2017-04-18 10:04 | HHI.DCPOC ---
Discharge Care Plan Diagnosis: (1) Rectal foreign body (2) HTN (hypertension) (3) A-fib (4) CAD (coronary artery disease) (5) S/P CABG (coronary artery bypass graft) Goals to Promote Your Health * To prevent worsening of your condition and complications * To maintain your health at the optimal level Directions to Meet Your Goals Take your medications as prescribed Follow your dietary instruction Follow activity as directed Keep your appointments as scheduled Take your immunizations and boosters as scheduled If your symptoms worsen call your PCP, if no PCP go to Urgent Care Center or Emergency Room Smoking is Dangerous to Your Health. Avoid second hand smoke Call the 24-hour hour crisis hotline for domestic abuse at Virgie Beverly PA-C Apr 18, 2017 10:04 am
[2017-04-18] MEDS ORDERED: METOPROLOL TARTRATE 25 MG TAB PO SCH (10:15)
[2017-04-18] MEDS ORDERED: AMIODARONE 200 MG TAB PO SCH (10:15)
[2017-04-18] MEDS ORDERED: MEMANTINE 21 MG PO SCH (10:15)
[2017-04-18] MEDS ORDERED: LEVOTHYROXINE SODIUM 75 MCG TAB PO SCH (10:15)
[2017-04-18] MEDS ORDERED: [UNRECOGNIZED DRUG - OTHER] PO SCH (10:15)
[2017-04-18] MEDS ORDERED: ASPIRIN 81 MG CHEW TAB PO SCH (10:15)
[2017-04-18] MEDS ORDERED: CLOPIDOGREL 75 MG TAB PO SCH (10:15)
[2017-04-18] MEDS ORDERED: PILL SPLITTER OTHER PRN (10:30)
[2017-04-18] MEDS ORDERED: ATORVASTATIN 80 MG TAB PO SCH (21:00)
--- NOTE | 2017-04-20 10:32 | MR ---
cc: THEO ESCAMILLA M.D., PETER C. MD DATE: 04/17/2017 DATE OF : 1945 TYPE OF PROCEDURE Flexible sigmoidoscopy with foreign body removal. INDICATION FOR PROCEDURE The patient is a 71-year-old white male who presented with a foreign body in the sigmoid. It was seen on abdominal x-ray as well as CT scan. It is reportedly a bottle with the cap aiming distally. This procedure is being done to remove this foreign body. ENDOSCOPIST Theo Escamilla MD ASSISTANTS GI personnel. ANESTHESIA MAC per Anesthesia. INSTRUMENT/SCOPE Pentax video Olympus pediatric colonoscope as well as rat-tooth forceps, a snare and various balloon dilators - see below. PHYSICAL EXAMINATION See consult. The physical exam is unchanged. CONTINUOUS MONITORING The patient had routine blood pressure monitoring, pulse oximeter/oxygen, and cardiac monitoring were continued throughout the procedure. INFORMED CONSENT Obtained with full verbal understanding, the indication for procedure (see above), risks and complications (bleeding, perforation, infection, arrhythmias, small possibility of , etc.), benefits (we can potentially see the entire colon, remove lesions, cauterized lesions, biopsy lesions, or inject lesions, etc.), alternatives (BE, flex-sig, surgery, etc.), limitations (we may not see everything secondary to prep and anatomy in addition, the patient understands the concept of a flat adenoma which is usually not seen on a colonoscopy. In other words, the patient understands that most colon cancers occur from colon polyps, however, a handful of colon cancers occur without an apparent colon polyp and occur from a flat adenoma. So, you can have a normal colonoscopy and develop a colon cancer years after the index normal colonoscopy. The patient also understands the inherent miss rate for polyps and a malignancy). The patient also understands the fact that I may not be able to complete the exam in its entirety. All questions were answered and all parties agreed to the procedure. TYPE OF PREP None. The exam was done unprepped. DESCRIPTION OF PROCEDURE With the patient in the left lateral decubitus position a rectal exam was done and no significant pathology was felt. He had very loose rectal tone and I could not feel the bottle. The above-mentioned colonoscope was inserted and passed easily to about 18 cm. Here the white cap of a bottle was noted. I could get around the bottle into the mid sigmoid. The scope was drawn back to the cap and I attempted to snare the cap but I could not get the snare around the cap. At this point I used a rat-tooth forceps and was able to grab the tip and brought it down to the rectosigmoid area and I could not get it past this area. It was noted that the cap had a hole in the tip. I was able to put the rat-tooth forces into the hole and open the rat-tooth forceps and tried pulling it out, but again it would not come through. At this point we got a Rigiflex balloon 18/20mm size. I put the balloon beyond the bottle but I could not bring the bottle out. At this point we got a smaller balloon 16/17/18mm balloon. I was able to take the deflated balloon and put it through the opening in the cap and blow up the balloon to 18 mm. I was able to then carefully remove the foreign body - which turned out to be a pool chemical bottle. The scope was reinserted to 30 cm and mild trauma was noted but no tears or anything unusual. Retroflexion was not done in the rectum. Hemorrhoids were noted. SPECIMEN An empty pool chemical bottle, discarded. TOLERANCE OF PROCEDURE The scope was totally withdrawn. The patient tolerated the procedure quite well. There were no immediate complications. Lungs, heart, abdomen, vital signs and the rest of the physical exam was unchanged post procedure. The patient was transported in a stable state to the recovery area. IMPRESSION 1. Foreign body in the mid sigmoid, an empty pool chemical bottle, removed. 2. Internal hemorrhoids. PLAN 1. The patient will be admitted to the hospital for observation. 2. NPO and start clear liquid diet tomorrow. 3. Hopefully can be discharged tomorrow if there are no complications. 4. Further recommendations depending on how he does. 5. Patient encouraged to contact the office as an outpatient to follow-up. MD DAYDAY Kerr/MOLLY /10:01 PM /10:13 AM [facility]
== END 2017-04-18 10:57 | disposition home or self-care (01) ==
LOC: NEPC 14:50 → NEDA 18:41 → NEPHCDU 22:09
PROVIDERS: ADMIT Internal Medicine; ATTEND Internal Medicine
PROC: 0DCP8ZZ Extirpation of Matter from Rectum, Via Natural or Artificial Opening Endoscopic (ICD-10-PCS; principal; 2017-04-17 20:30)
DX: T18.5XXA Foreign body in anus and rectum, initial encounter (principal); I10 Essential (primary) hypertension; I48.91 Unspecified atrial fibrillation; E78.5 Hyperlipidemia, unspecified; K64.8 Other hemorrhoids; E03.9 Hypothyroidism, unspecified; K21.9 Gastro-esophageal reflux disease without esophagitis; I25.10 Atherosclerotic heart disease of native coronary artery without angina pectoris; Z98.61 Coronary angioplasty status; Z95.1 Presence of aortocoronary bypass graft; X58.XXXA Exposure to other specified factors, initial encounter; Z79.82 Long term (current) use of aspirin; Z79.01 Long term (current) use of anticoagulants; Z79.899 Other long term (current) drug therapy
CPT/HCPCS: 01922; 45332; 74000; 74176; 80048; 85025; 99285; C1726; G0378; J2250; J7030